=== PATIENT | male | born 1965 | race Caucasian/White ===

== ENCOUNTER 2016-05-28 20:26 | Inpatient (IN) | payer MEDICAID ==
--- NOTE | 2016-05-28 20:32 | Emergency Department Record ---
History of Present Illness - General Chief Complaint: Chest Pain Stated Complaint: CHEST PAIN Time Seen by Provider: 05/28/16 20:32 Source: Patient - History of Present Illness Initial Comments: The patient states that he has had 3 days of constant left sided chest pain which is at the center of his chest and goes around to the left back of his chest and also includes his left arm from the top of his shoulder down to this 4th and 5th fingertips. It worsens when he lays on his left side, and is improved partially with laying on his right side. It is described as a burning electric type pain and is associated with SOB and wheezing. He states he had a temp of 101 3 days ago, he has been having chills, and his cough is productive of thick yellow brown green sputum. He has a history of over 50 pack year smoking of 1.5 packs per day and quit 2 years ago. He denies history of pneumonia, PE, DVT, NM, CVA, DM, HTN, chol. elevation. He states both his grandparents and both his parents have had NM's. His dad dies of "sarcomatous cancer" at age 56. MD Complaint: Chest pain, Other (cough, fever, SOB) - Related Data Home Medications Medication Instructions Recorded Confirmed Last Taken No Home Med [NO HOME MEDS] 05/28/16 05/28/16 Unknown Allergies Allergy/AdvReac Type Severity Reaction Status Date / Time No Known Drug Allergies Allergy Verified 05/28/16 20:28 Review of Systems Reviewed: No additional complaints except as noted below Constitutional: Reports: As per HPI. Denies: Chills, Fever, Malaise, Night sweats, Weakness, Weight change Eyes: Reports: As per HPI. Denies: Eye discharge, Eye pain, Photophobia, Vision change ENT: Reports: As per HPI. Denies: Congestion, Dental pain, Ear pain, Epistaxis , Hearing loss, Throat pain Respiratory: Reports: As per HPI. Denies: Cough, Dyspnea, Hemoptysis, Stridor, Wheezes Cardiovascular: Reports: As per HPI. Denies: Arrhythmia, Chest pain, Dyspnea on exertion, Edema, Murmurs, Orthopnea, Palpitations, Paroxysmal nocturnal dyspnea, Rheumatic Fever, Syncope Endocrine: Reports: As per HPI. Denies: Fatigue, Heat or cold intolerance, Polydipsia, Polyuria Gastrointestinal: Reports: As per HPI. Denies: Abdominal pain, Constipation, Diarrhea, Hematemesis, Hematochezia, Melena, Nausea, Vomiting Genitourinary: Reports: As per HPI. Denies: Dysuria, Frequency, Hematuria, Incontinence, Retention, Testicular pain, Testicular mass, Urgency Musculoskeletal: Reports: As per HPI. Denies: Arthralgia, Back pain, Gout, Joint swelling, Myalgia, Neck pain Skin: Reports: As per HPI. Denies: Bruising, Change in color, Change in hair/ nails, Lesions, Pruritus, Rash Neurological: Reports: As per HPI. Denies: Abnormal gait, Confusion, Headache, Numbness, Paresthesias, Seizure, Tingling, Tremors, Vertigo, Weakness Psychiatric: Reports: As per HPI. Denies: Anxiety, Auditory hallucinations, Depression, Homicidal thoughts, Suicidal thoughts, Visual hallucinations Hematological/Lymphatic: Reports: As per HPI. Denies: Anemia, Blood Clots, Easy bleeding, Easy bruising, Swollen glands Past Medical History - SOCIAL HISTORY Smoking Status: Former smoker Physical Exam - General General Appearance: Alert, Oriented x3, Cooperative, Moderate distress, Other ( RA biox 90%) - Head Head exam: Normal inspection - Eye Eye exam: Normal appearance, PERRL Pupils: Normal accommodation - ENT ENT exam: Normal exam, Mucous membranes moist, Normal external ear exam, Normal orophraynx, TM's normal bilaterally Ear exam: Normal external inspection. negative: External canal tenderness Nasal Exam: Normal inspection. negative: Discharge, Sinus tenderness Mouth exam: Normal external inspection, Tongue normal Teeth exam: Normal inspection. negative: Dental caries Throat exam: Normal inspection. negative: Tonsillar erythema, Tonsillar exudate - Neck Neck exam: Normal inspection, Full ROM. negative: Tenderness - Respiratory Respiratory exam: Chest wall tenderness, Decreased breath sounds, Prolonged expiratory, Respiratory distress, Wheezes (throughout) - Cardiovascular Cardiovascular Exam: Normal rhythm, Normal heart sounds, Tachycardia - GI/Abdominal GI/Abdominal exam: Soft, Normal bowel sounds. negative: Tenderness - Rectal Rectal exam: Deferred - exam: Deferred - Extremities Extremities exam: Normal inspection, Full ROM, Normal capillary refill. negative: Calf tenderness, Pedal edema, Tenderness - Back Back exam: Reports: Normal inspection, Full ROM. Denies: CVA tenderness (R), CVA tenderness (L), Muscle spasm, Rash noted, Tenderness - Neurological Neurological exam: Alert, CN II-XII intact, Normal gait, Oriented X3, Reflexes normal - Psychiatric Psychiatric exam: Normal affect, Normal mood - Skin Skin exam: Dry, Intact, Normal color, Warm Course - Reevaluation(s) Reevaluation #1: Pain level is 8/10 and now just in the left posterior chest area around his left scapula. Inspiratory and expiratory wheezes throughout. 05/28/16 21:47 Reevaluation #2: Patient is much more comfortable and is coughing more now. Patient agrees to admission. 05/28/16 23:04 Medical Decision Making - Management Options MDM Management: Additional Work-up Planned (e.g. ADM/Transfer/OP Study) - Data Complexity MDM Data: Labs Ordered and/or Reviewed, X-Ray Ordered and/or Reviewed (CTA Chest : L posterior perihilar pnemonia; R perihilar pneumonia; COPD changes in lung apices. Per Rad.), EKG Ordered and/or Reviewed - Lab Data Result diagrams: 05/28/16 20:36 05/28/16 20:36 - EKG Data -: EKG Interpreted by Me (Sinus tachycardia at 125, left atrial enlargement, inf. Q's, no ST mimi.) EKG: No Acute Changes Disposition Disposition: Admit Clinical Impression: Obstructive Chronic Bronchitis With Exacerbation Pneumonia Qualifiers: Pneumonia type: due to unspecified organism Laterality: bilateral Lung location : unspecified part of lung Qualified Code(s): J18.9 - Pneumonia, unspecified organism Pneumonia Qualifiers: Pneumonia type: due to unspecified organism Laterality: bilateral Lung location : unspecified part of lung Qualified Code(s): J18.9 - Pneumonia, unspecified organism Chest pain Qualifiers: Chest pain type: other chest pain Qualified Code(s): R07.89 - Other chest pain ; R07.8 - Other chest pain Disposition: Still a Patient at [facility] Decision to Admit: Admit from ER Decision to Admit Date: 05/28/16 Decision to Admit Time: 23:12 Accepting Physician: Dr. Dewitt/Liliana Condition: (2) Stable Forms: Patient Portal Access
[2016-05-28] MEDS ORDERED: ASPIRIN 325 MG TABLET PO ONE (20:33)
[2016-05-28] MEDS ORDERED: IPRATROPIUM/ALBUTEROL (0.5MG/3MG) NEB INH ONE (20:44)
[2016-05-28 21:03] LABS: HEMATOCRIT 47.7 % (42.0-52.0); HEMOGLOBIN 15.9 gm/dl (14.0-18.0); MEAN CELL VOLUME 91.2 fl (81-97); MEAN CORPUSCULAR HEMOGLOBIN 30.4 pg (27-33); MEAN CORPUSCULAR HGB CONC 33.3 g/dl (32-36); MEAN PLATELET VOLUME 11.5 fl (7.4-10.4); PLATELET COUNT 264 K/uL (130-400); RED BLOOD COUNT 5.23 M/uL (4.40-5.70); RED CELL DISTRIBUTION WIDTH 13.2 % (11.5-14.5); WHITE BLOOD COUNT W/O DIFF 17.4 K/uL (4.2-12.2)
[2016-05-28] MEDS ORDERED: 0.9 % SODIUM CHLORIDE 1,000 ML BAG IV ONE (21:06)
[2016-05-28 21:09] LABS: ANION GAP 13.6 (7-16); BLOOD UREA NITROGEN 11 mg/dL (9-20); CARBON DIOXIDE 31.4 mmol/L (22-30); CREATINE PHOSPHOKINASE 299 U/L (55-170); CREATININE 0.8 mg/dL (0.66-1.25); EST GLOMERULAR FILTRATION RATE > 60 ml/min; GLUCOSE,RANDOM 84 mg/dL (70-110)
[2016-05-28 21:13] LABS: D-DIMER 0.6 mg/L FEU (0-0.59); INR 0.96; PARTIAL THROMBOPLASTIN TIME 32.6 SECONDS (24.5-39.1); PROTHROMBIN TIME (PATIENT) 10.8 SECONDS (9.5-12.1)
[2016-05-28 21:21] LABS: CKMB 5.2 ug/L (0-6)
[2016-05-28 21:22] LABS: TROPONIN I < 0.012 ng/mL (0.00-0.034)
[2016-05-28] MEDS ORDERED: ORPHENADRINE CITRATE 60MG/2ML VIAL IVP ONE (21:22)
[2016-05-28] MEDS ORDERED: METHYLPREDNISOLONE PF 125MG/VIAL IVP ONE (21:22)
[2016-05-28] MEDS ORDERED: ALBUTEROL SULFATE (0.083%) 2.5 MG/3 ML NEB INH ONE (23:03)
[2016-05-28] MEDS ORDERED: AZITHROMYCIN 500 MG TABLET PO ONE (23:03)
[2016-05-28] MEDS ORDERED: CEFTRIAXONE SODIUM 2 GM in 0.9 % SODIUM CHLORIDE 100ML 100 ML IVPB ONE (23:03)
[2016-05-28] MEDS ORDERED: ACETAMINOPHEN 500 MG TABLET PO PRN (23:34)
[2016-05-28] MEDS: CEFTRIAXONE SODIUM 2 GM in 0.9 % SODIUM CHLORIDE 100ML 100 ML IVPB SCH (23:37)
[2016-05-29] MEDS ORDERED: ALBUTEROL SULFATE (0.083%) 2.5 MG/3 ML NEB INH PRN (02:09)
[2016-05-29] MEDS: IPRATROPIUM/ALBUTEROL (0.5MG/3MG) NEB INH SCH ×5 (05:41→21:18)
[2016-05-29] MEDS ORDERED: ALBUTEROL SULFATE (0.083%) 2.5 MG/3 ML NEB INH SCH (06:00)
[2016-05-29 07:24] LABS: CKMB 4.1 ug/L (0-6)
[2016-05-29] MEDS ORDERED: METHYLPREDNISOLONE PF 125MG/VIAL IVP SCH (10:00)
[2016-05-29] MEDS ORDERED: AZITHROMYCIN 500 MG TABLET PO SCH (10:00)
--- NOTE | 2016-05-29 14:11 | History & Physical ---
History of Present Illness - Date of Service Date of Service for History & Physical: 05/29/16 - History of Present Illness Admitting Diagnosis: Bilateral pneumonia; COPD exacerbation; chest pain; leukocytosis History of Present Illness: 51 yo male admitted for pneumonia. PMHx of smoking x 35 years (smoked 1-1.5 ppd , quit 2 years ago), COPD, marijuana use, obesity. Patient began having CP, CARIN and nausea about 4-5 days ago. Aggravated by nothing. Alleviated by IV antibiotics, breathing treatment and steroid in the ER. Prior to coming in, patient trialled OTC nsaids & cough supressant. However , his symptoms worsened on Monday. Patient then had a friend drive him to our ER. While in the ER, Temp 98.3, HR 126, BP 146/108, RR 18, O2 93% on RA. WBC 17.5, hgb/ hct normal, plt 264, sodium 141, potassium 4.3, chloride 96, CO2 31.4, BUN 11, Cr. 0.8, glucose 84. d-dimer: 0.60, troponin negative x 2, creatinine kinase 299 (decreased to 228). CXR: mild COPD, intersitial changes, NAP. CTA: no PE/aneurysm, Left posterior saida hilar nodule, consistent with PNA, minor infectior right saida hilar opacity. F/up recommended by radiologist to confirm clearing of non calcified nodule in right lung. EKG: sinus tach, LAE, infect infarct (old). 125 mg of solu medrol administered. Duo neb treatments initiated. He was started on 500 mg of PO Azithromycin daily and 2 gm of IV Rocephin. He was then admitted for further medical management. This morning, patient is lying comfortably in bed. He feels much less sob. CP has resolved. He's coughing up green, yellow sputum. No fever, chills, n/v, diaphoresis, diarrhea, abd pain, headache, dysuria, change in bowel habits, or unintentional weight loss. Patient denies any sick contacts. He traveled to [place] about 8 months ago. No changes to medications. No previous hospitalizations. No primary care provider. Went to an urgent care 2 months ago for a cough, which improved with cough syrup. 50 pack year smoking history. Both his parents have had KS's. Denies any known h/o HBP, high cholesterol, DVT, CVA or KS. PCP: NONE Travel Screening - Travel/Exposure Within Last 30 Days Have you traveled within the last 30 days?: No Review of Systems Constitutional: Reports: As per HPI. Denies: Chills, Fever, Malaise, Night sweats, Weakness, Weight change Eyes: Reports: As per HPI. Denies: Eye discharge, Eye pain, Photophobia, Vision change ENT: Reports: As per HPI. Denies: Congestion, Dental pain, Ear pain, Epistaxis , Hearing loss, Throat pain Respiratory: Reports: As per HPI. Denies: Cough, Dyspnea, Hemoptysis, Stridor, Wheezes Cardiovascular: Reports: As per HPI. Denies: Arrhythmia, Chest pain, Dyspnea on exertion, Edema, Murmurs, Orthopnea, Palpitations, Paroxysmal nocturnal dyspnea, Rheumatic Fever, Syncope Endocrine: Reports: As per HPI. Denies: Fatigue, Heat or cold intolerance, Polydipsia, Polyuria Gastrointestinal: Reports: As per HPI. Denies: Abdominal pain, Constipation, Diarrhea, Hematemesis, Hematochezia, Melena, Nausea, Vomiting Genitourinary: Reports: As per HPI. Denies: Dysuria, Frequency, Hematuria, Incontinence, Retention, Testicular pain, Testicular mass, Urgency Musculoskeletal: Reports: As per HPI. Denies: Arthralgia, Back pain, Gout, Joint swelling, Myalgia, Neck pain Skin: Reports: As per HPI. Denies: Bruising, Change in color, Change in hair/ nails, Lesions, Pruritus, Rash Neurological: Reports: As per HPI. Denies: Abnormal gait, Confusion, Headache, Numbness, Paresthesias, Seizure, Tingling, Tremors, Vertigo, Weakness Psychiatric: Reports: As per HPI. Denies: Anxiety, Auditory hallucinations, Depression, Homicidal thoughts, Suicidal thoughts, Visual hallucinations Hematological/Lymphatic: Reports: As per HPI. Denies: Anemia, Blood Clots, Easy bleeding, Easy bruising, Swollen glands Past Medical History - SOCIAL HISTORY Smoking Status: Former smoker Alcohol Use: Rare Drug Use Detail:: Marijuana - RESPIRATORY Hx Respiratory Disorders: No - CARDIOVASCULAR Hx Cardio Disorders: No - NEURO Hx Neuro Disorders: No - GI Hx GI Disorders: No - Hx Genitourinary Disorders: No - ENDOCRINE Hx Endocrine Disorders: No - MUSCULOSKELETAL Hx Musculoskeletal Disorders: No - PSYCH Hx Psych Problems: No - HEMATOLOGY/ONCOLOGY Hx Hematology/Oncology Disorders: No Family Medical History Any Significant Family History?: Yes Hx Cancer: Father Hx Diabetes: Mother Hx Heart Disease: Mother H&P Meds/Allergies - Allergies Allergies: Allergies Allergy/AdvReac Type Severity Reaction Status Date / Time No Known Drug Allergies Allergy Verified 05/28/16 20:28 - Home Medications Home Medications Medication Instructions Recorded Confirmed Last Taken No Home Med [NO HOME MEDS] 05/28/16 05/28/16 Unknown - Active Medications Active Medications: Current Medications Acetaminophen (Tylenol 500mg Tab) 1,000 mg PO Q6H PRN PRN Reason: PAIN/TEMP Albuterol Sulfate () 2.5 mg INH RESP.Q4H.WA PRN PRN Reason: DIFFICULTY IN BREATHING Albuterol/Ipratropium (Duoneb) 3 ml INH RESP.Q4H.WA PATO Last Admin: 05/29/16 10:25 Dose: 3 ml Azithromycin (Zithromax) 500 mg PO DAILY COUNTS INCLUDE 234 BEDS AT THE [facility] Last Admin: 05/29/16 11:05 Dose: 500 mg Ceftriaxone Sodium 2 gm/ (Sodium Chloride) 100 mls @ 200 mls/hr IVPB Q24H COUNTS INCLUDE 234 BEDS AT THE [facility] Stop: 06/02/16 23:35 Last Admin: 05/28/16 23:37 Dose: Not Given Methylprednisolone Sodium Succinate (Solu-Medrol) 125 mg IVP DAILY COUNTS INCLUDE 234 BEDS AT THE [facility] Last Admin: 05/29/16 11:04 Dose: 125 mg Physical Exam - Vital Signs Vital Signs: Vital Signs - Last 24 Hrs Temp Pulse Pulse Resp BP Pulse Ox 05/29/16 10:25 100 H 18 94 L 05/29/16 07:34 98.5 F 109 H 18 165/94 93 L 05/29/16 05:43 91 L 05/29/16 00:06 104 H 22 05/28/16 23:34 98.1 F 103 H 20 139/88 93 L - General General Appearance: Alert, Oriented x3, Cooperative, No acute distress - Head Head exam: Normal inspection - Eye Eye exam: Normal appearance, PERRL Pupils: Normal accommodation - ENT ENT exam: Normal exam, Mucous membranes moist, Normal external ear exam, Normal orophraynx, TM's normal bilaterally Ear exam: Normal external inspection. negative: External canal tenderness Nasal Exam: Normal inspection. negative: Discharge, Sinus tenderness Mouth exam: Normal external inspection, Tongue normal Teeth exam: Normal inspection. negative: Dental caries Throat exam: Normal inspection. negative: Tonsillar erythema, Tonsillar exudate - Neck Neck exam: Normal inspection, Full ROM. negative: Tenderness - Respiratory Respiratory exam: Decreased breath sounds, Prolonged expiratory, Wheezes ( throughout). negative: Accessory muscle use, Chest wall tenderness - Cardiovascular Cardiovascular Exam: Normal rhythm, Normal heart sounds, Tachycardia - GI/Abdominal GI/Abdominal exam: Soft, Normal bowel sounds. negative: Tenderness - Rectal Rectal exam: Deferred - exam: Deferred - Extremities Extremities exam: Normal inspection, Full ROM, Normal capillary refill. negative: Calf tenderness, Pedal edema, Tenderness - Back Back exam: Reports: Normal inspection, Full ROM. Denies: CVA tenderness (R), CVA tenderness (L), Muscle spasm, Rash noted, Tenderness - Neurological Neurological exam: Alert, CN II-XII intact, Normal gait, Oriented X3, Reflexes normal - Psychiatric Psychiatric exam: Normal affect, Normal mood - Skin Skin exam: Dry, Intact, Normal color, Warm Results - Labs Result Diagrams: 05/28/16 20:36 05/28/16 20:36 Labs Last 24 Hours: Laboratory Results - last 24 hr 05/29/16 05/29/16 06:00 08:00 Creatine Kinase 228 H CK-MB (CK-2) 4.1 Troponin I < 0.012 VTE H&P Assessment - Risk for VTE Risk for VTE: Yes Risk Level: Moderate Risk Assessment Date: 05/29/16 Risk Assessment Time: 11:00 VTE Orders Placed or Will Be Placed: Yes Plan - Inpatient Certification Inpatient Certification: Admit to inpatient care: Based on my medical assessment, after consideration of patient's risk factors (age, co-morbidities and patient presenting symptoms and acuity), I expect that this patient will remain in the hospital greater than or equal to two midnights and that the services needed warrant inpatient care because: Patient Risk Factors: [] Estimated length of stay: [] The patient may reasonably be expected to be discharged or transferred to a hospital within 96 hours after admission to [facility]. Services needed: [] Post hospital care (if known): [] I certify that my determination is in accordance with my understanding of Medicare requirements for reasonable and necessary inpatient services. - Detailed Diagnosis and Plan (1) Chest pain Current Visit: Yes Status: Acute Qualifiers: Chest pain type: other chest pain Qualified Code(s): R07.89 - Other chest pain; R07.8 - Other chest pain Base Code: R07.9 - CHEST PAIN, UNSPECIFIED Comment: 05/29/16: cardiac vs. respiratory vs. other? Patient states CP has resolved. EKG: sinus tach, LAE, infectior old infarct. CTA of chest: consistent with PNA. Troponin negative x 2. Creatinine kinase 299 initially now 228. Await final troponin and repeat EKG findings. Monitor VS's Q8 hours. Monitor for chest pain. Continue telemetry. Patient will need to be set up with PCP prior to discharge. (2) Pneumonia Current Visit: Yes Status: Acute Qualifiers: Pneumonia type: due to unspecified organism Laterality: bilateral Lung location: unspecified part of lung Qualified Code(s): J18.9 - Pneumonia , unspecified organism Base Code: J18.9 - PNEUMONIA, UNSPECIFIED ORGANISM Comment: 05/29/16: CTA of chest demonstrates findings consistent with pneumonia. Will continue PO Azithromycin 500 mg daily and 2 gm of Rocephin q 24 hours. Will change solu medrol to 60 mg daily. Continue breathing treatments Q4 hours. Sputum culture obtained. Monitor VS Q8 hours. No blood cultures obtained prior to antibiotic initiation. Recheck wbc in the am. Repeat chest imaging within the next 7 days to verify resolution of pneumonia and non calcified nodule in right lung. (3) DVT prophylaxis Current Visit: Yes Status: Acute Base Code: [id number] - Comment: 05/29/16: decreased mobility and respiratory distress. Lovenox 40 mg sq daily for dvt prophylaxis. (4) Full code status Current Visit: Yes Status: Acute Base Code: Z78.9 - OTHER SPECIFIED HEALTH STATUS Comment: 05/29/16: patient is full code.
[2016-05-29] MEDS: CEFTRIAXONE SODIUM 2 GM in 0.9 % SODIUM CHLORIDE 100ML 100 ML IVPB SCH (23:08)
[2016-05-29] MEDS: IBUPROFEN 400 MG TABLET PO PRN (23:47)
[2016-05-30] MEDS: IPRATROPIUM/ALBUTEROL (0.5MG/3MG) NEB INH SCH ×5 (05:41→22:19)
[2016-05-30 06:22] LABS: BASO % 0.1 % (0-6); HEMATOCRIT 46.3 % (42.0-52.0); HEMOGLOBIN 15.3 gm/dl (14.0-18.0); LYMPH % 5.9 % (16-45); MEAN CELL VOLUME 91.7 fl (81-97); MEAN CORPUSCULAR HEMOGLOBIN 30.3 pg (27-33); MEAN PLATELET VOLUME 11.5 fl (7.4-10.4); PLATELET COUNT 259 K/uL (130-400); RED BLOOD COUNT 5.05 M/uL (4.40-5.70); RED CELL DISTRIBUTION WIDTH 13.5 % (11.5-14.5)
[2016-05-30 06:29] LABS: WHITE BLOOD COUNT W/O DIFF 30.4 K/uL (4.2-12.2)
[2016-05-30 06:32] LABS: PLATELET ESTIMATE NORMAL (NORMAL)
[2016-05-30 06:36] LABS: ALB/GLOB RATIO 1.4 (1.1-1.8); ALBUMIN 4.3 gm/dL (3.5-5.0); ALKALINE PHOSPHATASE 108 U/L (38-126); ALT/SGPT 38 U/L (21-72); ANION GAP 16.3 (7-16); AST/SGOT 25 U/L (17-59); BILIRUBIN,TOTAL 0.21 mg/dL (0.2-1.3); BLOOD UREA NITROGEN 21 mg/dL (9-20); CARBON DIOXIDE 24.7 mmol/L (22-30); CREATININE 0.9 mg/dL (0.66-1.25); EST GLOMERULAR FILTRATION RATE > 60 ml/min; GLUCOSE,RANDOM 117 mg/dL (70-110); TOTAL PROTEIN 7.4 gm/dL (6.3-8.2)
[2016-05-30 06:44] LABS: CKMB 3.6 ug/L (0-6)
[2016-05-30] MEDS: HYDROCODONE/APAP 5/325MG TABLET PO PRN ×3 (06:51→18:43)
--- NOTE | 2016-05-30 07:29 | RADIOLOGY REPORT ---
EXAM: CHEST, TWO VIEWS HISTORY: CHEST PAIN FOR THE PAST THREE DAYS. PRODUCTIVE COUGH AND FEVER. LEFT SIDED CHEST PAIN. TECHNIQUE: PA and lateral upright views of the chest were obtained. Comparison: None. FINDINGS: The heart, mediastinum, and pulmonary vasculature are normal. The lungs appear mildly hyperinflated. Mild chronic appearing interstitial changes are present bilaterally. There are no visible acute infiltrate or effusions. There is no pneumothorax. The bones appear intact. IMPRESSION: 1. MILD COPD AND CHRONIC APPEARING INTERSTITIAL CHANGES. 2. NO ACUTE CHEST PATHOLOGY. JOB NUMBER: [id number] MTDD
--- NOTE | 2016-05-30 07:38 | CT ANGIOGRAM REPORT ---
EXAM: CTA OF THE CHEST WITH CONTRAST HISTORY: CHEST PAIN AND SHORTNESS OF BREATH WITH ELEVATED D-DIMER. SYMPTOMS FOR THE PAST THREE DAYS. TECHNIQUE: Standard CT angiography of the chest was performed with post processing following the bolus administration of 100 ml of Omnipaque 350. Additional coronal and sagittal maximum intensity projection reformatted images were performed on an independent workstation under concurrent supervision. Comparison: Chest radiograph from the same date. FINDINGS: The pulmonary arterial tree is normal. There is no pulmonary embolus. The aorta is normal in caliber with no dissection. The heart is normal in size. There is focal air space opacity within the medial aspect of the left lower lobe behind the left hilum. Mild right perihilar infiltrates are also present. The left posterior perihilar infiltrate has a slightly nodular component likely representing areas of consolidation/infection. Short term follow-up is recommended to confirm clearing. There are borderline enlarged mediastinal and left hilar lymph nodes. No pathologic lymphadenopathy is identified. There is a 4 mm noncalcified nodule within the right upper lobe on image number 43. A 5 mm noncalcified nodule is present within the right lower lobe on image number 92. These also can be reassessed on follow-up to confirm stability or resolution. The chest wall and axillary regions appear normal. Degenerative changes are present within the spine. The visualized portions of the upper abdomen appear normal. IMPRESSION: 1. THERE IS NO EVIDENCE FOR PULMONARY EMBOLUS OR AORTIC DISSECTION. 2. THERE IS A FOCAL AREA OF INFILTRATE/CONSOLIDATION WITHIN THE POSTERIOR LEFT PERIHILAR REGION CONSISTENT WITH PNEUMONIA. THIS HAS A SLIGHTLY NODULAR CONFIGURATION. A SHORT TERM FOLLOW-UP CT SCAN IS RECOMMENDED IN ONE TO TWO MONTHS TO CONFIRM COMPLETE RESOLUTION. 3. MINOR RIGHT PERIHILAR INFILTRATES ARE ALSO PRESENT. 4. NONCALCIFIED NODULES WITHIN THE RIGHT LUNG. THESE ALSO CAN BE REASSESSED ON FOLLOW-UP TO CONFORM STABILITY. 5. NOT MENTIONED ABOVE, MILD EMPHYSEMATOUS CHANGES ARE PRESENT AT THE LUNG APICES. JOB NUMBER: [id number] MTDD
[2016-05-30] MEDS: METHYLPREDNISOLONE PF 125MG/VIAL IVP SCH (09:56)
[2016-05-30] MEDS: ENOXAPARIN 40 MG/0.4 ML SYR SQ SCH (09:58)
[2016-05-30] MEDS ORDERED: LEVOFLOXACIN 500MG IVPB 500 MG in DEXTROSE 1 BAG IVPB SCH (10:00)
--- NOTE | 2016-05-30 10:58 | Physician Progress Note ---
Addendum entered and electronically signed by Liliana Castro P.A. 13:23: Neuro exam unremarkable. Head/ neck CT negative. Patient much more comfortable , sitting up in bed. Less sob. dental pain present though controlled. Vanco and Cefepime initiated. Addendum entered and electronically signed by Liliana Castro P.A. 11:16: Re- evaluated patient today around 11 am. Patient now c/o headache and vision blurring. he has a warm, red inflamed area on the back of his neck. ROM of neck is normal. no skin changes. no opened wounds on skin. C/o right knee erythema and inflammation two days ago, now states this has resolved. Will obtain head/cervical spine CT and discuss initiating strong antibiotic coverage. Original Note: Subjective - Date Date of Physician Progress Note: 05/30/16 - Subjective Subjective Comment: patient sitting up in bed comfortably. c/o front, lower dental pain. States he was yawning and cracked a tooth. Patient has a loose front lower tooth as well. poor dentition. denies dental visits q 6 months. Continue to have a green/yellow productive cough. Intermittent chest pain associated with cough. Afebrile. fatigue related to cough. No skin changes, headache, abd pain, change in bowel/bladder function. no additional concerns by patient. Objective - Vital Signs Vital Signs: Vital Signs - Last 24 Hrs Temp Pulse Pulse Resp BP Pulse Ox 05/30/16 10:23 118 H 20 95 05/30/16 10:10 100 H 18 05/30/16 07:00 97.8 F 105 H 20 159/108 94 L 05/30/16 05:42 110 H 22 93 L 05/29/16 21:58 98.6 F 123 H 22 133/85 94 L 05/29/16 21:18 120 H 22 94 L 05/29/16 21:00 123 H 22 05/29/16 15:00 99.0 F 118 H 22 152/87 91 L 05/29/16 14:42 104 H 18 92 L - General General Appearance: Alert, Oriented x3, Cooperative, Mild distress (due to dental pain) - Head Head exam: Normal inspection - Eye Eye exam: Normal appearance, PERRL Pupils: Normal accommodation - ENT ENT exam: Normal exam, Mucous membranes moist, Normal external ear exam, Normal orophraynx, TM's normal bilaterally Ear exam: Normal external inspection. negative: External canal tenderness Nasal Exam: Normal inspection. negative: Discharge, Sinus tenderness Mouth exam: Normal external inspection, Tongue normal Teeth exam: Dental caries, Dental tenderness # (front lower tooth, loose as well ), Fractured tooth # (multiple). negative: Gingival enlargement Throat exam: Normal inspection. negative: Tonsillar erythema, Tonsillar exudate - Neck Neck exam: Normal inspection, Full ROM. negative: Tenderness - Respiratory Respiratory exam: Decreased breath sounds, Prolonged expiratory, Wheezes ( throughout). negative: Accessory muscle use, Chest wall tenderness - Cardiovascular Cardiovascular Exam: Normal rhythm, Normal heart sounds, Tachycardia - GI/Abdominal GI/Abdominal exam: Soft, Normal bowel sounds. negative: Tenderness - Rectal Rectal exam: Deferred - exam: Deferred - Extremities Extremities exam: Normal inspection, Full ROM, Normal capillary refill. negative: Calf tenderness, Pedal edema, Tenderness - Back Back exam: Reports: Normal inspection, Full ROM. Denies: CVA tenderness (R), CVA tenderness (L), Muscle spasm, Rash noted, Tenderness - Neurological Neurological exam: Alert, CN II-XII intact, Normal gait, Oriented X3, Reflexes normal - Psychiatric Psychiatric exam: Normal affect, Normal mood - Skin Skin exam: Dry, Intact, Normal color, Warm Assessment and Plan - Assessment and Plan (1) Chest pain Current Visit: Yes Status: Acute Qualifiers: Chest pain type: other chest pain Qualified Code(s): R07.89 - Other chest pain; R07.8 - Other chest pain Base Code: R07.9 - CHEST PAIN, UNSPECIFIED Comment: 05/30/16: - I supsect related to PNA/cough. CTA of chest: consistent with PNA. - CE negative x 3. Creatinine kinase has normalized. - EKG: no acute changes x 2. - Monitor VS's Q8 hours. - Continue telemetry- sinuse tachycardia this morning. - IV antibiotics and steroid ordered. - continue supplemental oxygen as needed - Patient will need to be set up with PCP prior to discharge. (2) Pneumonia Current Visit: Yes Status: Acute Qualifiers: Pneumonia type: due to unspecified organism Laterality: bilateral Lung location: unspecified part of lung Qualified Code(s): J18.9 - Pneumonia , unspecified organism Base Code: J18.9 - PNEUMONIA, UNSPECIFIED ORGANISM Comment: 05/30/16: - CTA of chest demonstrates findings consistent with pneumonia. - WBC increased to > 30 today. Will d/c PO Azithromycin 500 mg. Will add IV Levaquin 500 mg q 24 horus. Continue 2 gm of Rocephin q 24 hours. - Will change solu medrol to 60 mg daily. -Continue breathing treatments Q4 hours. - Sputum culture obtained & pending. - Monitor VS Q8 hours. - No blood cultures obtained prior to antibiotic initiation. - Continue to monitor WBC daily. Will need to consider different antibiotic therapy if WBC remains elevated. - Repeat chest imaging within the next 7 days to verify resolution of pneumonia and non calcified nodule in right lung. (3) Pain, dental Current Visit: Yes Status: Acute Base Code: K08.89 - OTHER SPECIFIED DISORDERS OF TEETH AND SUPPORTING STRUCTURES Comment: 05/30/16: no abscess appreciated on exam. front tooth loose. patient will need to follow up with dentist following d/c. Will monitor closely for any worsening symptoms. (4) Full code status Current Visit: Yes Status: Acute Base Code: Z78.9 - OTHER SPECIFIED HEALTH STATUS Comment: 05/30/16: patient is full code. (5) DVT prophylaxis Current Visit: Yes Status: Acute Base Code: [id number] - Comment: 05/30/16: decreased mobility and respiratory distress. Lovenox 40 mg sq daily for dvt prophylaxis. Results - Labs Result Diagrams: 05/30/16 06:10 05/30/16 06:10 Labs Last 24 Hours: Laboratory Results - last 24 hr 05/29/16 05/30/16 05/30/16 15:34 06:10 06:10 WBC 30.4 H* RBC 5.05 Hgb 15.3 Hct 46.3 MCV 91.7 MCH 30.3 MCHC 33.0 RDW 13.5 Plt Count 259 MPV 11.5 H Neutrophils % 88.0 H Lymphocytes % 6.0 L Monocytes % 6.0 Eosinophils % 0.0 Basophils % 0.1 Platelet Estimate Normal RBC Morphology Normal Sodium Potassium Chloride Carbon Dioxide Anion Gap BUN Creatinine Estimated GFR Random Glucose Calcium Total Bilirubin AST ALT Alkaline Phosphatase Creatine Kinase 140 CK-MB (CK-2) 3.6 Troponin I < 0.012 Total Protein Albumin Globulin Albumin/Globulin Ratio 01/30/17 06:10 WBC RBC Hgb Hct MCV MCH MCHC RDW Plt Count MPV Neutrophils % Lymphocytes % Monocytes % Eosinophils % Basophils % Platelet Estimate RBC Morphology Sodium 141 Potassium 4.5 Chloride 100 Carbon Dioxide 24.7 Anion Gap 16.3 H BUN 21 H Creatinine 0.9 Estimated GFR > 60 Random Glucose 117 H Calcium 9.3 Total Bilirubin 0.21 AST 25 ALT 38 Alkaline Phosphatase 108 Creatine Kinase CK-MB (CK-2) Troponin I Total Protein 7.4 Albumin 4.3 Globulin 3.1 Albumin/Globulin Ratio 1.4 DVT/PE Assessment - Risk for VTE Risk for VTE: No Risk Level: Moderate Risk Assessment Date: 05/29/16 Risk Assessment Time: 11:00 VTE Orders Placed or Will Be Placed: Yes - Active Medicaitons Current Medications: Current Medications Acetaminophen (Tylenol 500mg Tab) 1,000 mg PO Q6H PRN PRN Reason: PAIN/TEMP Last Admin: 05/30/16 03:31 Dose: 1,000 mg Acetaminophen/Hydrocodone Bitart ([place] 5mg/325mg) 1 each PO Q6H PRN PRN Reason: Pain - General Last Admin: 05/30/16 08:28 Dose: 1 each Acetaminophen/Hydrocodone Bitart ([place] 5mg/325mg) 2 each PO Q6H PRN PRN Reason: Pain - General Albuterol Sulfate () 2.5 mg INH RESP.Q4H.NE PRN PRN Reason: DIFFICULTY IN BREATHING Albuterol/Ipratropium (Duoneb) 3 ml INH RESP.Q4H.[facility] Last Admin: 05/30/16 10:07 Dose: 3 ml Enoxaparin Sodium (Lovenox) 40 mg SQ DAILY [facility] Last Admin: 05/30/16 09:58 Dose: 40 mg Ceftriaxone Sodium 2 gm/ (Sodium Chloride) 100 mls @ 200 mls/hr IVPB Q24H [facility] Stop: 06/02/16 23:35 Last Admin: 05/29/16 23:08 Dose: 200 mls/hr Levofloxacin/Dextrose 500 mg/ (Glucose) 100 mls @ 125 mls/hr IVPB Q24H [facility] Stop: 06/04/16 10:01 Last Admin: 05/30/16 09:54 Dose: 125 mls/hr Ibuprofen (Motrin 400mg) 800 mg PO Q8H PRN PRN Reason: Pain - General Last Admin: 05/29/16 23:47 Dose: 800 mg Methylprednisolone Sodium Succinate (Solu-Medrol) 60 mg IVP DAILY [facility] Last Admin: 05/30/16 09:56 Dose: 60 mg AMI Plan - Labs Result Diagrams: 05/30/16 06:10 05/30/16 06:10
[2016-05-30] MEDS: CEFEPIME HCL 2 GM in 0.9 % SODIUM CHLORIDE 100ML 100 ML IVPB SCH ×2 (11:40→19:59)
[2016-05-30] MEDS: VANCOMYCIN HCL 1,000 MG in 0.9 % SODIUM CHLORIDE 250ML 250 ML IVPB SCH ×2 (13:38→20:59)
[2016-05-30] MEDS ORDERED: HYDROCHLOROTHIAZIDE 12.5 MG CAPSULE PO SCH (22:30)
[2016-05-31] MEDS: CEFEPIME HCL 2 GM in 0.9 % SODIUM CHLORIDE 100ML 100 ML IVPB SCH ×3 (03:45→19:39)
[2016-05-31] MEDS: VANCOMYCIN HCL 1,000 MG in 0.9 % SODIUM CHLORIDE 250ML 250 ML IVPB SCH ×2 (04:39→13:03)
[2016-05-31] MEDS: IPRATROPIUM/ALBUTEROL (0.5MG/3MG) NEB INH SCH ×5 (06:41→21:31)
--- NOTE | 2016-05-31 07:47 | CT SCAN REPORT ---
EXAM: CT SCAN OF THE HEAD HISTORY: PATIENT HAS HEADACHE AND BLURRED VISION. TECHNIQUE: Serial axial CT scan of the head was performed at 2.5 mm intervals from the base of the skull to the apex without the use of intravenous contrast. No comparison CT's are available. FINDINGS: The ventricles, cisterns, and sulci appear within normal limits for size, shape, and attenuation. There is no mass or mass effect. The sales white differentiation appear within normal limits. There is no CT evidence of intra or extraaxial fluid collection to suggest bleeding. Bone windows demonstrate no CT evidence of a fracture or dislocation of the skull. The paranasal sinuses are unremarkable. IMPRESSION: NO CT EVIDENCE OF AN ACUTE INTRACRANIAL PROCESS. JOB NUMBER: [id number] MTDD
[2016-05-31] MEDS: HYDROCODONE/APAP 5/325MG TABLET PO PRN (07:50)
--- NOTE | 2016-05-31 08:00 | CT SCAN REPORT ---
EXAM: CT SCAN OF THE NECK WITH CONTRAST HISTORY: PATIENT HAS SWELLING OF THE BACK OF THE LEFT SIDE OF THE NECK. TECHNIQUE: Serial axial CT scan of the neck was performed at 2.5 mm intervals from the base of the skull to the thoracic inlet following the intravenous administration of 100 ml of Omnipaque 300. FINDINGS: The vertebral body height, contour, and AP alignment of the cervical spine is within normal limits. Mild reversal of the normal lordosis may be reflective due to pain. The atlantodental interval is within normal limits. There is no CT evidence of a fracture or dislocation of the cervical spine. 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 The prevertebral soft tissue and parapharyngeal fat are unremarkable. The bilateral submandibular glands, parotid glands, and thyroid gland are unremarkable. There is no CT evidence of cervical lymphadenopathy. Occasional 8 mm lymph nodes are identified within the right paratracheal space at the level of the thoracic inlet as well as within the right mid neck. These findings are likely reactive. In the region of palpable concern within the left mid neck, there are no suspicious underlying solid or cystic masses. The airways are patent. The lung windows of the lung apices are unremarkable. The neck vessels are unremarkable. IMPRESSION: NO CT EVIDENCE OF ACUTE PROCESS INVOLVING THE NECK. OCCASIONAL NONSPECIFIC SUBCENTIMETER LYMPH NODES ARE IDENTIFIED DISCUSSED ABOVE. NO SIGNIFICANT CERVICAL LYMPHADENOPATHY IS APPARENT. NO SUSPICIOUS UNDERLYING SOLID OR CYSTIC MASSES ARE IDENTIFIED WITHIN THE LEFT POSTERIOR NECK. JOB NUMBER: [id number] MTDD
[2016-05-31] MEDS: ENOXAPARIN 40 MG/0.4 ML SYR SQ SCH (10:05)
[2016-05-31] MEDS: METHYLPREDNISOLONE PF 125MG/VIAL IVP SCH (10:06)
--- NOTE | 2016-05-31 10:56 | Physician Progress Note ---
Subjective - Date Date of Physician Progress Note: 05/31/16 - Subjective Subjective Comment: 05/31/16- Patient reports feeling much better today. He says the pain in the left side of his chest has completely resolved. He denies any pain with deep inhalation or cough. He denies feeling short of breath. He is continuing to have a productive cough and says the green/yellow sputum is coming up easier now. He is not feeling fatigued, having fevers or chills and wants to go home. Objective - Vital Signs Vital Signs: Vital Signs - Last 24 Hrs Temp Pulse Pulse Resp BP Pulse Ox 05/31/16 07:00 98.5 F 93 H 20 155/110 91 L 05/31/16 06:52 100 H 18 94 L 05/30/16 22:10 106 H 168/114 05/30/16 21:10 118 H 162/121 05/30/16 21:00 98.0 F 106 H 22 154/108 94 L 05/30/16 15:00 97.9 F 105 H 22 154/110 91 L 05/30/16 14:19 104 H 16 - General General Appearance: Alert, Oriented x3, Cooperative, No acute distress - Head Head exam: Normal inspection - Eye Eye exam: Normal appearance, PERRL Pupils: Normal accommodation - ENT ENT exam: Normal exam, Mucous membranes moist, Normal external ear exam, Normal orophraynx, TM's normal bilaterally Ear exam: Normal external inspection. negative: External canal tenderness Nasal Exam: Normal inspection. negative: Discharge, Sinus tenderness Mouth exam: Normal external inspection, Tongue normal Teeth exam: Dental caries, Dental tenderness # (front lower tooth, loose as well ), Fractured tooth # (multiple). negative: Gingival enlargement Throat exam: Normal inspection. negative: Tonsillar erythema, Tonsillar exudate - Neck Neck exam: Normal inspection, Full ROM. negative: Tenderness - Respiratory Respiratory exam: Prolonged expiratory, Rhonchi (mid left and right lung ley) . negative: Accessory muscle use, Chest wall tenderness - Cardiovascular Cardiovascular Exam: Normal rhythm, Normal heart sounds, Tachycardia - GI/Abdominal GI/Abdominal exam: Soft, Normal bowel sounds. negative: Tenderness - Rectal Rectal exam: Deferred - exam: Deferred - Extremities Extremities exam: Normal inspection, Full ROM, Normal capillary refill. negative: Calf tenderness, Pedal edema, Tenderness - Back Back exam: Reports: Normal inspection, Full ROM. Denies: CVA tenderness (R), CVA tenderness (L), Muscle spasm, Rash noted, Tenderness - Neurological Neurological exam: Alert, CN II-XII intact, Normal gait, Oriented X3, Reflexes normal - Psychiatric Psychiatric exam: Normal affect, Normal mood - Skin Skin exam: Dry, Intact, Normal color, Warm Assessment and Plan - Inpatient Certification Inpatient Certification: risk factors: age, bilateral pneumonia, duration: 72-96H services needed: IV antibiotics, respiratory therapy 05/31/16 10:53 - Assessment and Plan (1) Pneumonia Current Visit: Yes Status: Acute Qualifiers: Pneumonia type: due to unspecified organism Laterality: bilateral Lung location: unspecified part of lung Qualified Code(s): J18.9 - Pneumonia, unspecified organism Base Code: J18.9 - PNEUMONIA, UNSPECIFIED ORGANISM Comment: 05/31/16: CTA of chest demonstrates findings consistent with bilateral perihilar pneumonia. sputum gram stain showed gram positive cocci and bacillus. Legionella antigen pending per [facility] recommendations. WBC down to 17.5 after initiating vancomycin 250mg q8H and cefepime 2gm Q8H - Will continue solu medrol 60 mg daily and antibiotics. pharmacy to dose vanc -Continue breathing treatments Q4 hours. - Monitor VS Q8 hours. - No blood cultures obtained prior to antibiotic initiation while in the ED - Repeat chest imaging within the next 7 days to verify resolution of pneumonia and non calcified nodule in right lung. (2) Chest pain Current Visit: Yes Status: Acute Qualifiers: Chest pain type: other chest pain Qualified Code(s): R07.89 - Other chest pain; R07.8 - Other chest pain Base Code: R07.9 - CHEST PAIN, UNSPECIFIED Comment: 05/31/16: Resolved. Most likely cause was PNA. CTA of chest consistent with b/l perihilar PNA. CE negative x 3. Creatinine kinase has normalized. EKG : no acute changes x 2. - Monitor VS's Q8 hours. - Discontinue telemetry - Patient will need to be set up with PCP prior to discharge. (3) DVT prophylaxis Current Visit: Yes Status: Acute Base Code: [id number] - Comment: 05/31/16: decreased mobility. - Lovenox 40 mg sq daily for dvt prophylaxis. (4) Full code status Current Visit: Yes Status: Acute Base Code: Z78.9 - OTHER SPECIFIED HEALTH STATUS Comment: 05/31/16: patient is full code. (5) Pain, dental Current Visit: Yes Status: Acute Base Code: K08.89 - OTHER SPECIFIED DISORDERS OF TEETH AND SUPPORTING STRUCTURES Comment: 05/31/16: no abscess appreciated on exam. front tooth loose. patient has dentist appointment scheduled for next week. -Will monitor closely for any worsening symptoms. Results - Labs Result Diagrams: 06/01/16 06:05 06/01/16 06:05 DVT/PE Assessment - Risk for VTE Risk for VTE: No Risk Level: Moderate Risk Assessment Date: 05/29/16 Risk Assessment Time: 11:00 VTE Orders Placed or Will Be Placed: Yes - Active Medicaitons Current Medications: Current Medications Acetaminophen (Tylenol 500mg Tab) 1,000 mg PO Q6H PRN PRN Reason: PAIN/TEMP Last Admin: 05/30/16 03:31 Dose: 1,000 mg Acetaminophen/Hydrocodone Bitart ([place] 5mg/325mg) 1 each PO Q6H PRN PRN Reason: Pain - General Last Admin: 05/30/16 18:43 Dose: 1 each Acetaminophen/Hydrocodone Bitart ([place] 5mg/325mg) 2 each PO Q6H PRN PRN Reason: Pain - General Last Admin: 05/31/16 07:50 Dose: 2 each Albuterol Sulfate () 2.5 mg INH RESP.Q4H.[place] PRN PRN Reason: DIFFICULTY IN BREATHING Albuterol/Ipratropium (Duoneb) 3 ml INH RESP.Q4H.[facility] Last Admin: 05/31/16 06:41 Dose: 3 ml Enoxaparin Sodium (Lovenox) 40 mg SQ DAILY [facility] Last Admin: 05/31/16 10:05 Dose: 40 mg CEFEPIME HCL 2 gm/ Sodium (Chloride) 100 mls @ 200 mls/hr IVPB Q8H [facility] Last Admin: 05/31/16 03:45 Dose: 200 mls/hr Vancomycin HCl 1,000 mg/ (Sodium Chloride) 250 mls @ 250 mls/hr IVPB Q8H [facility] Stop: 06/04/16 12:16 Last Admin: 05/31/16 04:39 Dose: 250 mls/hr Ibuprofen (Motrin 400mg) 800 mg PO Q8H PRN PRN Reason: Pain - General Last Admin: 05/29/16 23:47 Dose: 800 mg Methylprednisolone Sodium Succinate (Solu-Medrol) 60 mg IVP DAILY [facility] Last Admin: 05/31/16 10:06 Dose: 60 mg AMI Plan - Labs Result Diagrams: 06/01/16 06:05 06/01/16 06:05
[2016-05-31 13:03] LABS: HEMATOCRIT 46.2 % (42.0-52.0); HEMOGLOBIN 15.1 gm/dl (14.0-18.0); MEAN CELL VOLUME 92.4 fl (81-97); MEAN CORPUSCULAR HEMOGLOBIN 30.2 pg (27-33); MEAN CORPUSCULAR HGB CONC 32.7 g/dl (32-36); MEAN PLATELET VOLUME 11.2 fl (7.4-10.4); PLATELET COUNT 260 K/uL (130-400); RED CELL DISTRIBUTION WIDTH 13.6 % (11.5-14.5); WHITE BLOOD COUNT W/O DIFF 17.3 K/uL (4.2-12.2)
[2016-05-31 13:17] LABS: ALB/GLOB RATIO 1.3 (1.1-1.8); ALKALINE PHOSPHATASE 98 U/L (38-126); ALT/SGPT 86 U/L (21-72); ANION GAP 14.3 (7-16); AST/SGOT 65 U/L (17-59); BILIRUBIN,TOTAL 0.23 mg/dL (0.2-1.3); BLOOD UREA NITROGEN 15 mg/dL (9-20); CARBON DIOXIDE 28.7 mmol/L (22-30); CREATININE 0.8 mg/dL (0.66-1.25); EST GLOMERULAR FILTRATION RATE > 60 ml/min; GLUCOSE,RANDOM 135 mg/dL (70-110); TOTAL PROTEIN 7.2 gm/dL (6.3-8.2)
[2016-05-31] MEDS ORDERED: VANCOMYCIN HCL 500 MG in 0.9 % SODIUM CHLORIDE 100ML 100 ML IV ONE (15:00)
[2016-05-31] MEDS: SODIUM CHLORIDE 0.9% IV SCH (21:12)
[2016-05-31] MEDS: VANCOMYCIN HCL IV SCH (21:12)
[2016-05-31] MEDS ORDERED: LISINOPRIL 20 MG TABLET PO ONE (22:49)
[2016-06-01] MEDS: HYDROCODONE/APAP 5/325MG TABLET PO PRN (00:02)
[2016-06-01] MEDS: IPRATROPIUM/ALBUTEROL (0.5MG/3MG) NEB INH SCH ×6 (00:22→21:59)
[2016-06-01] MEDS: CEFEPIME HCL 2 GM in 0.9 % SODIUM CHLORIDE 100ML 100 ML IVPB SCH ×2 (03:19→11:06)
[2016-06-01] MEDS: SODIUM CHLORIDE 0.9% IV SCH ×2 (04:11→12:19)
[2016-06-01] MEDS: VANCOMYCIN HCL IV SCH ×2 (04:11→12:19)
[2016-06-01 06:33] LABS: HEMATOCRIT 46.2 % (42.0-52.0); HEMOGLOBIN 15.1 gm/dl (14.0-18.0); MEAN CELL VOLUME 91.8 fl (81-97); MEAN CORPUSCULAR HGB CONC 32.7 g/dl (32-36); MEAN PLATELET VOLUME 11.6 fl (7.4-10.4); PLATELET COUNT 255 K/uL (130-400); RED BLOOD COUNT 5.03 M/uL (4.40-5.70); RED CELL DISTRIBUTION WIDTH 13.3 % (11.5-14.5)
[2016-06-01 06:43] LABS: ALB/GLOB RATIO 1.3 (1.1-1.8); ALBUMIN 3.8 gm/dL (3.5-5.0); ALKALINE PHOSPHATASE 89 U/L (38-126); ALT/SGPT 77 U/L (21-72); ANION GAP 11.9 (7-16); AST/SGOT 39 U/L (17-59); BILIRUBIN,TOTAL 0.17 mg/dL (0.2-1.3); BLOOD UREA NITROGEN 15 mg/dL (9-20); CARBON DIOXIDE 27.1 mmol/L (22-30); CREATININE 0.8 mg/dL (0.66-1.25); EST GLOMERULAR FILTRATION RATE > 60 ml/min; GLUCOSE,RANDOM 88 mg/dL (70-110); TOTAL PROTEIN 6.8 gm/dL (6.3-8.2)
[2016-06-01 06:53] LABS: PLATELET ESTIMATE NORMAL (NORMAL)
[2016-06-01] MEDS: LISINOPRIL 20 MG TABLET PO SCH (09:54)
[2016-06-01] MEDS: ENOXAPARIN 40 MG/0.4 ML SYR SQ SCH (09:55)
[2016-06-01] MEDS: METHYLPREDNISOLONE PF 125MG/VIAL IVP SCH (09:55)
--- NOTE | 2016-06-01 10:13 | Physician Progress Note ---
Subjective - Date Date of Physician Progress Note: 06/01/16 - Subjective Subjective Comment: 06/01/16- Patient reports continuing to feel well today. He denies shortness of breath or chest pain. He continues to cough up dark brown sputum. He has been up and ambulating well without any dyspnea. He denies feeling feverish or chilled. Has been eating well. He would really like to go home today. Objective - Vital Signs Vital Signs: Vital Signs - Last 24 Hrs Temp Pulse Pulse Resp BP Pulse Ox 06/01/16 08:05 94 H 20 06/01/16 06:27 78 20 94 L 06/01/16 06:00 97.6 F 94 H 22 163/118 95 06/01/16 01:20 95 H 167/109 05/31/16 21:31 104 H 22 95 05/31/16 21:00 97.7 F 116 H 22 185/111 94 L 05/31/16 16:45 98.1 F 105 H 20 130/89 94 L - General General Appearance: Alert, Oriented x3, Cooperative, No acute distress - Head Head exam: Normal inspection - Eye Eye exam: Normal appearance, PERRL Pupils: Normal accommodation - ENT ENT exam: Normal exam, Mucous membranes moist, Normal external ear exam, Normal orophraynx, TM's normal bilaterally Ear exam: Normal external inspection. negative: External canal tenderness Nasal Exam: Normal inspection. negative: Discharge, Sinus tenderness Mouth exam: Normal external inspection, Tongue normal Teeth exam: Dental caries, Dental tenderness # (front lower tooth, loose as well ), Fractured tooth # (multiple). negative: Gingival enlargement Throat exam: Normal inspection. negative: Tonsillar erythema, Tonsillar exudate - Neck Neck exam: Normal inspection, Full ROM. negative: Tenderness - Respiratory Respiratory exam: Prolonged expiratory, Rhonchi (throughout the right lung and in the base of the left lung), Wheezes (few scattered expiratory wheezes). negative: Accessory muscle use, Chest wall tenderness - Cardiovascular Cardiovascular Exam: Regular rate, Normal rhythm, Normal heart sounds - GI/Abdominal GI/Abdominal exam: Soft, Normal bowel sounds. negative: Tenderness - Rectal Rectal exam: Deferred - exam: Deferred - Extremities Extremities exam: Normal inspection, Full ROM, Normal capillary refill. negative: Calf tenderness, Pedal edema, Tenderness - Back Back exam: Reports: Normal inspection, Full ROM. Denies: CVA tenderness (R), CVA tenderness (L), Muscle spasm, Rash noted, Tenderness - Neurological Neurological exam: Alert, CN II-XII intact, Normal gait, Oriented X3, Reflexes normal - Psychiatric Psychiatric exam: Normal affect, Normal mood - Skin Skin exam: Dry, Intact, Normal color, Warm Assessment and Plan - Assessment and Plan (1) Pneumonia Current Visit: Yes Status: Acute Qualifiers: Pneumonia type: due to unspecified organism Laterality: bilateral Lung location: unspecified part of lung Qualified Code(s): J18.9 - Pneumonia, unspecified organism Base Code: J18.9 - PNEUMONIA, UNSPECIFIED ORGANISM Comment: 06/01/16: Clinically improving. CTA of chest demonstrates findings consistent with bilateral perihilar pneumonia. sputum culture showing staph and sensitivity is pending. Legionella antigen negative. WBC back up to 21 today. Patient remains afebrile. No blood cultures obtained prior to antibiotic initiation while in the ED -continue vancomycin 500mg IV q8H and cefepime 2gm IV q8H until sensitivity report returns. Will discuss appropriate oral abx with pharmacy once sensitivity report available. - discontinue the solumedrol. Patient no longer SOB and feel it may be causing elevation in WBC count, heart rate and blood pressure. -add mucinex 1200mg PO BId -add incentive spirometry with vibratory pep valve to help move secretions. - Monitor VS Q8 hours. - Repeat chest imaging within the next 7 days to one month with CT scan (2) Chest pain Current Visit: Yes Status: Acute Qualifiers: Chest pain type: other chest pain Qualified Code(s): R07.89 - Other chest pain; R07.8 - Other chest pain Base Code: R07.9 - CHEST PAIN, UNSPECIFIED Comment: 06/01/16: Resolved. Most likely cause was PNA. CTA of chest consistent with b/l perihilar PNA. CE negative x 3. Creatinine kinase has normalized. EKG : no acute changes x 2. - Monitor VS's Q8 hours. - Discontinue telemetry - Patient will need to be set up with PCP prior to discharge. (3) DVT prophylaxis Current Visit: Yes Status: Acute Base Code: [id number] - Comment: 06/01/16: decreased mobility. - Lovenox 40 mg sq daily for dvt prophylaxis. (4) Full code status Current Visit: Yes Status: Acute Base Code: Z78.9 - OTHER SPECIFIED HEALTH STATUS Comment: 06/01/16: patient is full code. (5) Pain, dental Current Visit: Yes Status: Acute Base Code: K08.89 - OTHER SPECIFIED DISORDERS OF TEETH AND SUPPORTING STRUCTURES Comment: 06/01/16: no abscess appreciated on exam. front tooth loose. patient has dentist appointment scheduled for next week. -Will monitor closely for any worsening symptoms. (6) Hypertension Current Visit: Yes Status: Acute Qualifiers: Hypertension type: essential hypertension Qualified Code(s): I10 - Essential (primary) hypertension Base Code: I10 - ESSENTIAL (PRIMARY) HYPERTENSION Comment: 06/01/16- BP consistently elevated >140/90. Do feel that may be partly related to solumedrol. -will start lisinopril 20mg po daily -continue to monitor VS q8H Results - Labs Result Diagrams: 06/01/16 06:05 06/01/16 06:05 Labs Last 24 Hours: Laboratory Results - last 24 hr 05/31/16 05/31/16 05/31/16 12:58 12:58 12:58 WBC 17.3 H RBC 5.00 Hgb 15.1 Hct 46.2 MCV 92.4 MCH 30.2 MCHC 32.7 RDW 13.6 Plt Count 260 MPV 11.2 H Neutrophils % 84.0 H Band Neutrophils % Lymphocytes % 10.0 L Monocytes % 6.0 Eosinophils % Not Reportable Basophils % Not Reportable Platelet Estimate RBC Morphology Sodium 140 Potassium 4.3 Chloride 97 L Carbon Dioxide 28.7 Anion Gap 14.3 BUN 15 Creatinine 0.8 Estimated GFR > 60 Random Glucose 135 H Calcium 9.1 Total Bilirubin 0.23 AST 65 H ALT 86 H Alkaline Phosphatase 98 Total Protein 7.2 Albumin 4.0 Globulin 3.2 Albumin/Globulin Ratio 1.3 Vancomycin Trough 10.4 06/01/16 06/01/16 06:05 06:05 WBC 21.0 H* RBC 5.03 Hgb 15.1 Hct 46.2 MCV 91.8 MCH 30.0 MCHC 32.7 RDW 13.3 Plt Count 255 MPV 11.6 H Neutrophils % 79.0 Band Neutrophils % 3.0 Lymphocytes % 10.0 L Monocytes % 8.0 Eosinophils % Not Reportable Basophils % Not Reportable Platelet Estimate Normal RBC Morphology Normal Sodium 139 Potassium 4.3 Chloride 100 Carbon Dioxide 27.1 Anion Gap 11.9 BUN 15 Creatinine 0.8 Estimated GFR > 60 Random Glucose 88 Calcium 8.9 Total Bilirubin 0.17 L AST 39 ALT 77 H Alkaline Phosphatase 89 Total Protein 6.8 Albumin 3.8 Globulin 3.0 Albumin/Globulin Ratio 1.3 Vancomycin Trough DVT/PE Assessment - Risk for VTE Risk for VTE: No Risk Level: Moderate Risk Assessment Date: 05/29/16 Risk Assessment Time: 11:00 VTE Orders Placed or Will Be Placed: Yes - Active Medicaitons Current Medications: Current Medications Acetaminophen (Tylenol 500mg Tab) 1,000 mg PO Q6H PRN PRN Reason: PAIN/TEMP Last Admin: 05/30/16 03:31 Dose: 1,000 mg Acetaminophen/Hydrocodone Bitart (Sheldahl 5mg/325mg) 1 each PO Q6H PRN PRN Reason: Pain - General Last Admin: 05/30/16 18:43 Dose: 1 each Acetaminophen/Hydrocodone Bitart (Sheldahl 5mg/325mg) 2 each PO Q6H PRN PRN Reason: Pain - General Last Admin: 06/01/16 00:02 Dose: 2 each Albuterol Sulfate () 2.5 mg INH RESP.Q4H.AK PRN PRN Reason: DIFFICULTY IN BREATHING Albuterol/Ipratropium (Duoneb) 3 ml INH RESP.Q4H.[facility] Last Admin: 06/01/16 06:24 Dose: 3 ml Enoxaparin Sodium (Lovenox) 40 mg SQ DAILY [facility] Last Admin: 06/01/16 09:55 Dose: Not Given CEFEPIME HCL 2 gm/ Sodium (Chloride) 100 mls @ 200 mls/hr IVPB Q8H [facility] Last Admin: 06/01/16 03:19 Dose: 200 mls/hr Vancomycin HCl 1.5 gm/ Sodium (Chloride) 500 mls @ 333.333 mls/hr IV Q8H [facility] Last Admin: 06/01/16 04:11 Dose: 200 mls/hr Ibuprofen (Motrin 400mg) 800 mg PO Q8H PRN PRN Reason: Pain - General Last Admin: 05/29/16 23:47 Dose: 800 mg Lisinopril (Zestril) 20 mg PO DAILY [facility] Last Admin: 06/01/16 09:54 Dose: 20 mg Methylprednisolone Sodium Succinate (Solu-Medrol) 60 mg IVP DAILY [facility] Last Admin: 06/01/16 09:55 Dose: 60 mg AMI Plan - Labs Result Diagrams: 06/01/16 06:05 06/01/16 06:05
[2016-06-01] MEDS: GUAIFENESIN 1,200 MG TABLET PO SCH ×2 (11:22→21:13)
[2016-06-01] MEDS: LEVOFLOXACIN 500 MG TABLET PO SCH (15:50)
[2016-06-02] MEDS: IPRATROPIUM/ALBUTEROL (0.5MG/3MG) NEB INH SCH ×2 (06:06→09:54)
[2016-06-02] MEDS: IBUPROFEN 400 MG TABLET PO PRN (06:15)
[2016-06-02 06:33] LABS: HEMATOCRIT 47.5 % (42.0-52.0); HEMOGLOBIN 15.7 gm/dl (14.0-18.0); MEAN CELL VOLUME 90.8 fl (81-97); MEAN CORPUSCULAR HGB CONC 33.1 g/dl (32-36); PLATELET COUNT 273 K/uL (130-400); RED BLOOD COUNT 5.23 M/uL (4.40-5.70); RED CELL DISTRIBUTION WIDTH 13.1 % (11.5-14.5)
[2016-06-02 06:39] LABS: WHITE BLOOD COUNT W/O DIFF 23.2 K/uL (4.2-12.2)
[2016-06-02 06:48] LABS: PLATELET ESTIMATE NORMAL (NORMAL)
[2016-06-02 06:49] LABS: ALB/GLOB RATIO 1.4 (1.1-1.8); ALBUMIN 4.1 gm/dL (3.5-5.0); ALKALINE PHOSPHATASE 92 U/L (38-126); ALT/SGPT 77 U/L (21-72); ANION GAP 14.8 (7-16); AST/SGOT 32 U/L (17-59); BILIRUBIN,TOTAL 0.19 mg/dL (0.2-1.3); BLOOD UREA NITROGEN 20 mg/dL (9-20); CARBON DIOXIDE 26.2 mmol/L (22-30); CREATININE 0.8 mg/dL (0.66-1.25); EST GLOMERULAR FILTRATION RATE > 60 ml/min; GLUCOSE,RANDOM 89 mg/dL (70-110); TOTAL PROTEIN 7.1 gm/dL (6.3-8.2)
[2016-06-02] MEDS: LEVOFLOXACIN 500 MG TABLET PO SCH (09:15)
[2016-06-02] MEDS: LISINOPRIL 20 MG TABLET PO SCH (09:15)
[2016-06-02] MEDS: ENOXAPARIN 40 MG/0.4 ML SYR SQ SCH (09:15)
[2016-06-02] MEDS: GUAIFENESIN 1,200 MG TABLET PO SCH (09:15)
--- NOTE | 2016-06-02 10:49 | RADIOLOGY REPORT ---
EXAM: CHEST, TWO VIEWS HISTORY: FOLLOW-UP PNEUMONIA TECHNIQUE: Two views of the chest were provided along with the comparison study dated 05/28/16. FINDINGS: The cardiomediastinal silhouette is within normal limits for size and contour. The cady appear unremarkable. COPD changes are again identified. There is no radiographic evidence of a focal infiltrate or pleural effusion. IMPRESSION: NO RADIOGRAPHIC EVIDENCE OF AN ACUTE INTRATHORACIC PROCESS. JOB NUMBER: [id number] [facility]
--- NOTE | 2016-06-02 11:27 | Discharge Summary ---
Providers Discharge Summary Date: 06/02/16 Date of admission: 05/28/16 23:31 Expected Date of Discharge: 06/02/16 Attending physician: JACI CASTAÑEDA Physical Exam - Vital Signs Vital Signs: Vital Signs - Last 24 Hrs Temp Pulse Pulse Pulse Resp BP Pulse Ox 06/02/16 09:58 96 H 16 97 06/02/16 09:00 98.5 F 100 H 18 151/111 96 06/02/16 07:44 96 H 16 06/02/16 06:06 100 H 16 95 06/02/16 01:00 97.6 F 101 H 16 145/96 92 L 06/01/16 22:06 95 06/01/16 21:00 16 06/01/16 18:05 90 16 06/01/16 17:00 98.8 F 16 155/103 95 06/01/16 14:30 96 H 16 - General General Appearance: Alert, Oriented x3, Cooperative, No acute distress - Head Head exam: Normal inspection - Eye Eye exam: Normal appearance, PERRL Pupils: Normal accommodation - ENT ENT exam: Normal exam, Mucous membranes moist, Normal external ear exam, Normal orophraynx, TM's normal bilaterally Ear exam: Normal external inspection. negative: External canal tenderness Nasal Exam: Normal inspection. negative: Discharge, Sinus tenderness Mouth exam: Normal external inspection, Tongue normal Teeth exam: Dental caries, Dental tenderness # (front lower tooth, loose as well ), Fractured tooth # (multiple). negative: Gingival enlargement Throat exam: Normal inspection. negative: Tonsillar erythema, Tonsillar exudate - Neck Neck exam: Normal inspection, Full ROM. negative: Tenderness - Respiratory Respiratory exam: Prolonged expiratory, Rhonchi (throughout the right lung and in the base of the left lung), Wheezes (few scattered expiratory wheezes). negative: Accessory muscle use, Chest wall tenderness - Cardiovascular Cardiovascular Exam: Regular rate, Normal rhythm, Normal heart sounds - GI/Abdominal GI/Abdominal exam: Soft, Normal bowel sounds. negative: Tenderness - Rectal Rectal exam: Deferred - exam: Deferred - Extremities Extremities exam: Normal inspection, Full ROM, Normal capillary refill. negative: Calf tenderness, Pedal edema, Tenderness - Back Back exam: Reports: Normal inspection, Full ROM. Denies: CVA tenderness (R), CVA tenderness (L), Muscle spasm, Rash noted, Tenderness - Neurological Neurological exam: Alert, CN II-XII intact, Normal gait, Oriented X3, Reflexes normal - Psychiatric Psychiatric exam: Normal affect, Normal mood - Skin Skin exam: Dry, Intact, Normal color, Warm Hospitalization - Hospitalization Admission Diagnosis: Bilateral pneumonia; COPD exacerbation; chest pain; leukocytosis - Problem List/Discharge Diagnosis (1) Pneumonia Status: Acute Discharge Diagnosis: Pneumonia type: due to unspecified organism Laterality: bilateral Lung location: unspecified part of lung Qualified Code(s): J18.9 - Pneumonia, unspecified organism Base Code: J18.9 - PNEUMONIA, UNSPECIFIED ORGANISM Comment: 06/02/16: Continues to improve. repeat CXR showed no infitrate visible. sputum showed staph not methicillin resistant. Legionella antigen negative. WBC back up to 23 today. Suspect this may be related to dental abscesses more so than chest pathology. Patient remains afebrile. No blood cultures obtained prior to antibiotic initiation while in the ED -Will continue levaquin 500mg po daily for 4 more days for full 10 day course of antibiotics -will add oral clindamycin 300mg pO q6h for 10 days for anaerobe coverage for dental infection. Patient has dental appointment next week. -continue mucinex 1200mg PO BId along with adequate hydration -gave patient new patient information to establish with [facility] and we will have bilingual medical receptionist contact him to schedule appointment within 7 days (2) Chest pain Status: Acute Discharge Diagnosis: Chest pain type: other chest pain Qualified Code(s): R07.89 - Other chest pain; R07.8 - Other chest pain Base Code: R07.9 - CHEST PAIN, UNSPECIFIED Comment: 06/02/16: Resolved. Most likely cause was PNA. CTA of chest consistent with b/l perihilar PNA. CE negative x 3. Creatinine kinase has normalized. EKG : no acute changes x 2. - Monitor VS's Q8 hours. - Discontinue telemetry - Patient given new pt packet for [facility] (3) Hypertension Status: Acute Discharge Diagnosis: Hypertension type: essential hypertension Qualified Code(s): I10 - Essential (primary) hypertension Base Code: I10 - ESSENTIAL (PRIMARY) HYPERTENSION Comment: 06/02/16- BP consistently elevated >140/90. Do feel that may be partly related to solumedrol. -continue lisinopril 20mg po daily -follow up as outpatient. Given [facility] new patient information and will have bilingual medical receptionist contact him to schedule follow up in next 7 days (4) Pain, dental Status: Acute Base Code: K08.89 - OTHER SPECIFIED DISORDERS OF TEETH AND SUPPORTING STRUCTURES Comment: 06/02/16: Possible abscess formation 2/2 dental fracture. This is likely causing elevated WBC count rather than chest pathology as repeat CXR shows no infiltrate. On appropriate abx therapy but needs to be set up for dental extraction and possibly I&D. patient has dentist appointment scheduled for next week will continue abx until seen. Explained taht he needs to return to ED at any time if dental pain progresses or if he has swelling, drainage, or fevers while on the clindamycin to which he agrees (5) Full code status Status: Acute Base Code: Z78.9 - OTHER SPECIFIED HEALTH STATUS Comment: 06/02/16: patient is full code. (6) DVT prophylaxis Status: Acute Base Code: [id number] - Comment: 06/02/16: decreased mobility. - Lovenox 40 mg sq daily for dvt prophylaxis. - Hospitalization Course Disposition: Home, Self-Care Hospital Course: 51 yo male admitted for pneumonia. PMHx of smoking x 35 years (smoked 1-1.5 ppd , quit 2 years ago), COPD, marijuana use, obesity. Patient began having CP, CARIN and nausea about 4-5 days ago. Aggravated by nothing. Alleviated by IV antibiotics, breathing treatment and steroid in the ER. Prior to coming in, patient trialled OTC nsaids & cough supressant. However , his symptoms worsened on Monday. Patient then had a friend drive him to our ER. While in the ER, Temp 98.3, HR 126, BP 146/108, RR 18, O2 93% on RA. WBC 17.5, hgb/ hct normal, plt 264, sodium 141, potassium 4.3, chloride 96, CO2 31.4, BUN 11, Cr. 0.8, glucose 84. d-dimer: 0.60, troponin negative x 2, creatinine kinase 299 (decreased to 228). CXR: mild COPD, intersitial changes, NAP. CTA: no PE/aneurysm, Left posterior saida hilar nodule, consistent with PNA, minor infectior right saida hilar opacity. F/up recommended by radiologist to confirm clearing of non calcified nodule in right lung. EKG: sinus tach, LAE, infect infarct (old). 125 mg of solu medrol administered. Duo neb treatments initiated. He was started on 500 mg of PO Azithromycin daily and 2 gm of IV Rocephin. He was then admitted for further medical management. 05/29/16-This morning, patient is lying comfortably in bed. He feels much less sob. CP has resolved. He's coughing up green, yellow sputum. No fever, chills , n/v, diaphoresis, diarrhea, abd pain, headache, dysuria, change in bowel habits, or unintentional weight loss. Patient denies any sick contacts. He traveled to [place] about 8 months ago. No changes to medications. No previous hospitalizations. No primary care provider. Went to an urgent care 2 months ago for a cough, which improved with cough syrup. 50 pack year smoking history. Both his parents have had IL's. Denies any known h/o HBP, high cholesterol, DVT, CVA or IL. 05/30/16- patient sitting up in bed comfortably. c/o front, lower dental pain. States he was yawning and cracked a tooth. Patient has a loose front lower tooth as well. poor dentition. denies dental visits q 6 months. Continue to have a green/yellow productive cough. Intermittent chest pain associated with cough. Afebrile. fatigue related to cough. No skin changes, headache, abd pain , change in bowel/bladder function. no additional concerns by patient. Addendum entered and electronically signed by Liliana Castro P.A. 11:16: Re- evaluated patient today around 11 am. Patient now c/o headache and vision blurring. he has a warm, red inflamed area on the back of his neck. ROM of neck is normal. no skin changes. no opened wounds on skin. C/o right knee erythema and inflammation two days ago, now states this has resolved. Will obtain head/cervical spine CT and discuss initiating strong antibiotic coverage. Addendum entered and electronically signed by Liliana Castro P.A. 13:23: Neuro exam unremarkable. Head/ neck CT negative. Patient much more comfortable , sitting up in bed. Less sob. dental pain present though controlled. Vanco and Cefepime initiated. 05/31/16- Patient reports feeling much better today. He says the pain in the left side of his chest has completely resolved. He denies any pain with deep inhalation or cough. He denies feeling short of breath. He is continuing to have a productive cough and says the green/yellow sputum is coming up easier now. He is not feeling fatigued, having fevers or chills and wants to go home. 06/01/16- Patient reports continuing to feel well today. He denies shortness of breath or chest pain. He continues to cough up dark brown sputum. He has been up and ambulating well without any dyspnea. He denies feeling feverish or chilled. Has been eating well. He would really like to go home today. 06/02/16- Patient continues to do well. Cough is decreasing now and sputum is starting to thin. Continues to deny any dyspnea at rest or with exertion. He says his teeth are the only thing that is still bothering him. He denies fever, chills, nausea. Has been eating well. Procedures: Imaging and X-Rays 05/30/16 11:12 HEAD WO CONTRAST [CT] Stat 05/30/16 12:12 SOFT TISSUE NECK W CONTRAST [CT] Stat 06/02/16 09:36 CHEST 2 VIEWS [RAD] Stat Abnormal Labs: Abnormal Lab Results 05/29/16 05/30/16 05/30/16 Range/Units 06:00 06:10 06:10 WBC 30.4 H* (4.2-12.2) K/uL MPV 11.5 H (7.4-10.4) fl Neutrophils % 88.0 H (47-80) % Lymphocytes % 6.0 L (16-45) % Chloride (98-107) mmol/L Anion Gap 16.3 H (7-16) BUN 21 H (9-20) mg/dL Random Glucose 117 H (70-110) mg/dL Total Bilirubin (0.2-1.3) mg/dL AST (17-59) U/L ALT (21-72) U/L Creatine Kinase 228 H (55-170) U/L Vancomycin Trough (5.0-20.0) ug/mL 05/31/16 05/31/16 06/01/16 Range/Units 12:58 12:58 06:05 WBC 17.3 H 21.0 H* (4.2-12.2) K/uL MPV 11.2 H 11.6 H (7.4-10.4) fl Neutrophils % 84.0 H (47-80) % Lymphocytes % 10.0 L 10.0 L (16-45) % Chloride 97 L (98-107) mmol/L Anion Gap (7-16) BUN (9-20) mg/dL Random Glucose 135 H (70-110) mg/dL Total Bilirubin (0.2-1.3) mg/dL AST 65 H (17-59) U/L ALT 86 H (21-72) U/L Creatine Kinase (55-170) U/L Vancomycin Trough (5.0-20.0) ug/mL 06/01/16 06/01/16 06/02/16 Range/Units 06:05 12:10 06:25 WBC 23.2 H* (4.2-12.2) K/uL MPV 11.0 H (7.4-10.4) fl Neutrophils % 81.0 H (47-80) % Lymphocytes % 10.0 L (16-45) % Chloride (98-107) mmol/L Anion Gap (7-16) BUN (9-20) mg/dL Random Glucose (70-110) mg/dL Total Bilirubin 0.17 L (0.2-1.3) mg/dL AST (17-59) U/L ALT 77 H (21-72) U/L Creatine Kinase (55-170) U/L Vancomycin Trough 20.1 H* (5.0-20.0) ug/mL 06/02/16 Range/Units 06:25 WBC (4.2-12.2) K/uL MPV (7.4-10.4) fl Neutrophils % (47-80) % Lymphocytes % (16-45) % Chloride (98-107) mmol/L Anion Gap (7-16) BUN (9-20) mg/dL Random Glucose (70-110) mg/dL Total Bilirubin 0.19 L (0.2-1.3) mg/dL AST (17-59) U/L ALT 77 H (21-72) U/L Creatine Kinase (55-170) U/L Vancomycin Trough (5.0-20.0) ug/mL Condition at Discharge: (2) Stable Discharge Medications - Discharge Medications Prescriptions: Clindamycin HCl [Cleocin HCl] 300 mg PO Q6HR #28 capsule Levofloxacin [Levaquin] 500 mg PO DAILY #4 tablet Lisinopril 20 mg PO DAILY #30 tab Home Medications: Ambulatory Orders Clindamycin HCl [Cleocin HCl] 300 mg PO Q6HR #28 capsule 06/02/16 [Last Taken Unknown] Levofloxacin [Levaquin] 500 mg PO DAILY #4 tablet 06/02/16 [Last Taken Unknown] Lisinopril 20 mg PO DAILY #30 tab 06/02/16 [Last Taken Unknown] Discharge Plan - Discharge Instructions Activity at Discharge: Resume Usual Activities As Tolerated Diet at Discharge: Low Fat, Low Cholesterol, Low Salt Diet Instructions: Clindamycin (By mouth), Lisinopril (By mouth), Levofloxacin (By mouth), Chronic Obstructive Pulmonary Disease (DC), Community-acquired Pneumonia (DC) Additional Instructions: 2 Activity: Resume Usual Activities As Tolerated 2 Diet: Low Fat, Low Cholesterol Low Salt Diet 2 Consults: 2 Follow Up: Please complete new patient form and we will contact you to schedule appointment as new patient with the [facility] 2 Dressing/Wound Care: (Type) (Change) 2 Additional: [] Continue Levaquin and Clindamycin until gone Continue Lisinopril 20mg daily for blood pressure Please make follow up dentist appointment within 1 week
== END 2016-06-02 12:44 | disposition home or self-care (01) | DRG 194 ==
LOC: ER 20:26 → MEDSURG 23:31
PROVIDERS: ADMIT Family Medicine; ATTEND Family Medicine
DX: J18.9 Pneumonia, unspecified organism (principal); J44.1 Chronic obstructive pulmonary disease with (acute) exacerbation; Z78.9 Other specified health status; K08.89 Other specified disorders of teeth and supporting structures; I10 Essential (primary) hypertension; R07.89 Other chest pain
CPT/HCPCS: 70450; 70491; 71020; 71275; 80048; 80053; 80202; 82550; 82553; 84484; 85027; 85379; 85610; 85730; 87070; 87449; 93005; 93010; 94010; 94640; 94667; 94668; 94760; 94761; 96374; 96375; 99223; 99233; 99239; 99285; J1650; J1956; J2360; J2930; J3370; J7040; J7050; J7613

== ENCOUNTER 2017-04-16 18:02 | Emergency (ER) | payer MEDICAID ==
[2017-04-16] MEDS ORDERED: IPRATROPIUM/ALBUTEROL (0.5MG/3MG) NEB INH ONE (18:43)
[2017-04-16] MEDS ORDERED: METHYLPREDNISOLONE PF 125MG/VIAL IVP ONE (18:43)
[2017-04-16 19:10] LABS: BASO % 0.5 % (0-6); GRAN % 75.7 % (47-80); HEMATOCRIT 47.4 % (42.0-52.0); HEMOGLOBIN 16.4 gm/dl (14.0-18.0); LYMPH % 13.7 % (16-45); MEAN CELL VOLUME 88.4 fl (81-97); MEAN CORPUSCULAR HEMOGLOBIN 30.6 pg (27-33); MEAN CORPUSCULAR HGB CONC 34.6 g/dl (32-36); MEAN PLATELET VOLUME 11.5 fl (7.4-10.4); MONO % 9.1 % (0-9); PLATELET COUNT 199 K/uL (130-400); RED BLOOD COUNT 5.36 M/uL (4.40-5.70); RED CELL DISTRIBUTION WIDTH 13.4 % (11.5-14.5); WHITE BLOOD COUNT W/O DIFF 9.9 K/uL (4.2-12.2)
[2017-04-16 19:23] LABS: BLOOD UREA NITROGEN 14 mg/dL (6-20); EST GLOMERULAR FILTRATION RATE > 60 mL/min
[2017-04-16 19:26] LABS: GLUCOSE,RANDOM 106 mg/dL (74-109)
[2017-04-16] MEDS ORDERED: ALBUTEROL SULFATE (0.083%) 2.5 MG/3 ML NEB INH ONE (20:34)
--- NOTE | 2017-04-16 20:40 | Emergency Department Record ---
History of Present Illness - General Chief Complaint: Difficulty Breathing Stated Complaint: CARIN,COPD Time Seen by Provider: 04/16/17 18:37 Source: Patient Mode of Arrival: Ambulatory Limitations: No limitations - History of Present Illness Initial Comments: pt has been increasingly sob w productive cough green/yellow Complaint: Cough, Shortness of breath Onset/Timin -: Days(s) Severity: Moderate Severity scale (1-10): 8 Quality: Aching Consistency: Constant Improves With: Bronchodilators Worsens With: Medication Known History Of: COPD Context: Recent URI Associated Symptoms: Cough Treatments Prior to Arrival: Bronchodilator - Related Data Home Oxygen Therapy: No Previous Rx's Medication Instructions Recorded Amlodipine Besylate [Norvasc] 5 mg PO DAILY #20 tab 04/16/17 Azithromycin [Zithromax] 250 mg PO DAILY #4 tab 04/16/17 Prednisone [Prednisone 20Mg] 20 mg PO BIDPC #8 tab 04/16/17 Allergies Allergy/AdvReac Type Severity Reaction Status Date / Time No Known Drug Allergies Allergy Verified 04/16/17 18:23 Travel Screening - Travel/Exposure Within Last 30 Days Have you traveled within the last 30 days?: No - Travel/Exposure Within Last Year Have you traveled outside the [place] in the last year?: No - Additonal Travel Details Have you been exposed to anyone with a communicable illness?: No - Travel Symptoms Symptom Screening: None Review of Systems Reviewed: No additional complaints except as noted below Constitutional: Reports: As per HPI. Denies: Chills, Fever, Malaise, Night sweats, Weakness, Weight change Eyes: Reports: As per HPI. Denies: Eye discharge, Eye pain, Photophobia, Vision change ENT: Reports: As per HPI. Denies: Congestion, Dental pain, Ear pain, Epistaxis , Hearing loss, Throat pain Respiratory: Reports: As per HPI. Denies: Cough, Dyspnea, Hemoptysis, Stridor, Wheezes Cardiovascular: Reports: As per HPI. Denies: Arrhythmia, Chest pain, Dyspnea on exertion, Edema, Murmurs, Orthopnea, Palpitations, Paroxysmal nocturnal dyspnea, Rheumatic Fever, Syncope Endocrine: Reports: As per HPI. Denies: Fatigue, Heat or cold intolerance, Polydipsia, Polyuria Gastrointestinal: Reports: As per HPI. Denies: Abdominal pain, Constipation, Diarrhea, Hematemesis, Hematochezia, Melena, Nausea, Vomiting Genitourinary: Reports: As per HPI. Denies: Dysuria, Frequency, Hematuria, Incontinence, Retention, Testicular pain, Testicular mass, Urgency Musculoskeletal: Reports: As per HPI. Denies: Arthralgia, Back pain, Gout, Joint swelling, Myalgia, Neck pain Skin: Reports: As per HPI. Denies: Bruising, Change in color, Change in hair/ nails, Lesions, Pruritus, Rash Neurological: Reports: As per HPI. Denies: Abnormal gait, Confusion, Headache, Numbness, Paresthesias, Seizure, Tingling, Tremors, Vertigo, Weakness Psychiatric: Reports: As per HPI. Denies: Anxiety, Auditory hallucinations, Depression, Homicidal thoughts, Suicidal thoughts, Visual hallucinations Hematological/Lymphatic: Reports: As per HPI. Denies: Anemia, Blood Clots, Easy bleeding, Easy bruising, Swollen glands Past Medical History - SOCIAL HISTORY Smoking Status: Former smoker Alcohol Use: None Drug Use: Occasional Drug Use Detail:: Marijuana - RESPIRATORY Hx Respiratory Disorders: Yes Hx COPD: Yes (diagnosed 2016) Hx Pneumonia: Yes (Jun, 2016) - CARDIOVASCULAR Hx Cardio Disorders: No Hx Hypertension: Yes - NEURO Hx Neuro Disorders: No - GI Hx GI Disorders: No - Hx Genitourinary Disorders: No - ENDOCRINE Hx Endocrine Disorders: No - MUSCULOSKELETAL Hx Musculoskeletal Disorders: No - PSYCH Hx Psych Problems: No - HEMATOLOGY/ONCOLOGY Hx Hematology/Oncology Disorders: No Family Medical History Any Significant Family History?: Yes Hx Cancer: Father Hx Diabetes: Mother Hx Heart Disease: Mother Physical Exam - General General Appearance: Alert, Oriented x3, Cooperative, Mild distress - Head Head exam: Normal inspection - Eye Eye exam: Normal appearance, PERRL, EOMI Pupils: Normal accommodation - ENT ENT exam: Normal exam, Mucous membranes moist, Normal external ear exam, Normal orophraynx Ear exam: Normal external inspection. negative: External canal tenderness Nasal Exam: Normal inspection. negative: Discharge, Sinus tenderness Mouth exam: Normal external inspection, Tongue normal Teeth exam: Normal inspection. negative: Dental caries Throat exam: Normal inspection. negative: Tonsillar erythema, Tonsillar exudate - Neck Neck exam: Normal inspection, Full ROM. negative: Tenderness - Respiratory Respiratory exam: Accessory muscle use, Respiratory distress, Wheezes - Cardiovascular Cardiovascular Exam: Regular rate, Normal rhythm, Normal heart sounds - GI/Abdominal GI/Abdominal exam: Soft, Normal bowel sounds. negative: Tenderness - Rectal Rectal exam: Deferred - exam: Deferred - Extremities Extremities exam: Normal inspection, Full ROM, Normal capillary refill. negative: Tenderness - Back Back exam: Reports: Normal inspection, Full ROM. Denies: Muscle spasm, Rash noted, Tenderness - Neurological Neurological exam: Alert, CN II-XII intact, Normal gait, Oriented X3 - Psychiatric Psychiatric exam: Normal affect, Normal mood - Skin Skin exam: Dry, Intact, Normal color, Warm Course Vital Signs 04/16/17 04/16/17 04/16/17 18:17 18:59 19:52 Temperature 97.5 F L Pulse Rate 119 H 102 H Pulse Rate [ Pulse Ox Probe] Respiratory 18 18 22 Rate Blood Pressure 125/94 Blood Pressure 123/89 [Left Arm] Pulse Ox 94 L 96 90 L 04/16/17 04/16/17 19:55 20:20 Temperature Pulse Rate Pulse Rate [ 98 H Pulse Ox Probe] Respiratory 20 Rate Blood Pressure Blood Pressure [Left Arm] Pulse Ox 95 93 L - Reevaluation(s) Reevaluation #1: 04/16/17 20:42 pt feels better Medical Decision Making - Lab Data Result diagrams: 04/16/17 19:01 04/16/17 19:01 Lab Results 04/16/17 04/16/17 Range/Units 19:01 19:01 WBC 9.9 (4.2-12.2) K/uL RBC 5.36 (4.40-5.70) M/uL Hgb 16.4 (14.0-18.0) gm/dl Hct 47.4 (42.0-52.0) % MCV 88.4 (81-97) fl MCH 30.6 (27-33) pg MCHC 34.6 (32-36) g/dl RDW 13.4 (11.5-14.5) % Plt Count 199 (130-400) K/uL MPV 11.5 H (7.4-10.4) fl Gran % 75.7 (47-80) % Lymphocytes % 13.7 L (16-45) % Monocytes % 9.1 H (0-9) % Eosinophils % 1.0 (0-6) % Basophils % 0.5 (0-6) % Sodium 137 (136-145) mmol/L Potassium 4.5 (3.4-4.5) mmol/L Chloride 97 L (98-107) mmol/L Carbon Dioxide 27.0 (22-29) mmol/L Anion Gap 13.0 (7-16) BUN 14 (6-20) mg/dL Creatinine 1.0 (0.7-1.2) mg/dL Estimated GFR > 60 mL/min Random Glucose 106 (74-109) mg/dL Calcium 9.6 (8.6-10.0) mg/dL Disposition Disposition: Discharge Clinical Impression: Acute exacerbation of chronic obstructive pulmonary disease Acute bronchitis Qualifiers: Bronchitis organism: unspecified organism Qualified Code(s): J20.9 - Acute bronchitis, unspecified Disposition: Home, Self-Care Condition: (1) Good Instructions: Dyspnea (ED), COPD (Chronic Obstructive Pulmonary Disease) (ED), Acute Bronchitis (ED) Additional Instructions: follow up with family doctor. return sooner if worse. Prescriptions: Amlodipine Besylate [Norvasc] 5 mg PO DAILY #20 tab Azithromycin [Zithromax] 250 mg PO DAILY #4 tab Prednisone [Prednisone 20Mg] 20 mg PO BIDPC #8 tab Quality - Quality Measures Quality Measures: N/A - Blood Pressure Screening Does Patient Have Any of the Following: Active Dx of HTN Blood Pressure Classification: Hypertensive Reading Systolic Measurement: 125 Diastolic Measurement: 94 Screening for High Blood Pressure: Patient Exclusion, Hx of HTN [G9744]
[2017-04-16] MEDS ORDERED: PROMETHAZINE W/CODEINE 10ML UD PO ONE ×2 (20:45→21:04)
[2017-04-16] MEDS ORDERED: AZITHROMYCIN 500 MG TABLET PO ONE (20:51)
--- NOTE | 2017-04-17 08:14 | RADIOLOGY REPORT ---
EXAM: CHEST, TWO VIEWS HISTORY: ACUTE SHORTNESS OF BREATH, NONPRODUCTIVE COUGH. TECHNIQUE: Two views of the chest were obtained. Comparison: CT of the chest 05/28/16. FINDINGS: The lungs are hyperinflated although otherwise clear. The cardiac silhouette is not enlarged. The diaphragm is flattened. Osteopenia. IMPRESSION: EMPHYSEMA. NO ACUTE INTRATHORACIC PROCESS WITH NO CHANGE. JOB NUMBER: [id number] [facility]TD[facility]
== END 2017-04-16 21:26 | disposition home or self-care (01) ==
LOC: ER 18:02
DX: J44.1 Chronic obstructive pulmonary disease with (acute) exacerbation (principal); J20.9 Acute bronchitis, unspecified; J44.0 Chronic obstructive pulmonary disease with (acute) lower respiratory infection; Z87.891 Personal history of nicotine dependence
CPT/HCPCS: 71020; 80048; 85025; 94640; 96374; 99284; J2930; J7613

== ENCOUNTER 2018-12-06 14:08 | Emergency (ER) | payer MEDICAID ==
--- NOTE | 2018-12-06 14:25 | Emergency Department Record ---
History of Present Illness - General Chief Complaint: Chest Pain Stated Complaint: CHEST PAIN Time Seen by Provider: 12/06/18 14:19 Source: Patient Mode of Arrival: Ambulatory Limitations: No limitations - History of Present Illness Initial Comments: The patient is here due to a 2 week hx of intermittent CP and SOB. He has had a worsening of his chronic cough also but no sputum production or fever. The patient states the pain is sometimes sharp and sometimes aching. It will last 5- 10 minutes at a time and is intermittently associated with SOB and sweating. Sometimes coughing will bring on the pain and sometimes exertion. He did see his PCP today for it and was sent to the ER for evaluation. MD Complaint: Chest pain Onset/Timin -: Week(s) Pain Location: Substernal Severity scale (1-10): 5 Quality: Heaviness Other Symptoms: Other Treatments Prior to Arrival: None - Related Data Previous Rx's Medication Instructions Recorded Doxycycline Monohydrate [Mondoxyne 100 mg PO BID 7 Days #14 capsule 12/06/18 Nl] Allergies Allergy/AdvReac Type Severity Reaction Status Date / Time No Known Drug Allergies Allergy Unverified 09/17/18 13:56 Travel Screening - Travel/Exposure Within Last 30 Days Have you traveled within the last 30 days?: No - Travel/Exposure Within Last Year Have you traveled outside the [place] in the last year?: No - Additonal Travel Details Have you been exposed to anyone with a communicable illness?: No - Travel Symptoms Symptom Screening: None Review of Systems Constitutional: Denies: Chills, Fever Eyes: Denies: Eye discharge ENT: Reports: Congestion Respiratory: Reports: Cough. Denies: Dyspnea, Hemoptysis, Stridor Cardiovascular: Reports: Chest pain. Denies: Arrhythmia, Dyspnea on exertion Endocrine: Denies: Fatigue Gastrointestinal: Denies: Nausea Genitourinary: Denies: Hematuria Musculoskeletal: Denies: Arthralgia Skin: Denies: Bruising Past Medical History - SOCIAL HISTORY Smoking Status: Former smoker Alcohol Use: Rare Drug Use: Heavy Drug Use Detail:: Marijuana - RESPIRATORY Hx Respiratory Disorders: Yes Hx COPD: Yes (diagnosed 2016) Hx Pneumonia: Yes (Jun, 2016) - CARDIOVASCULAR Hx Cardio Disorders: No Hx Hypertension: Yes - NEURO Hx Neuro Disorders: No - GI Hx GI Disorders: No - Hx Genitourinary Disorders: No - ENDOCRINE Hx Endocrine Disorders: No - MUSCULOSKELETAL Hx Musculoskeletal Disorders: No - PSYCH Hx Psych Problems: No - HEMATOLOGY/ONCOLOGY Hx Hematology/Oncology Disorders: No Family Medical History Any Significant Family History?: No Hx Cancer: Father Hx Diabetes: Mother Hx Heart Disease: Mother Physical Exam - General General Appearance: Alert, Oriented x3, Cooperative, No acute distress - Head Head exam: Atraumatic, Normocephalic, Normal inspection - Eye Eye exam: Normal appearance, PERRL, EOMI - ENT Throat exam: Normal inspection. negative: Tonsillar erythema, Tonsillar exudate - Neck Neck exam: Normal inspection, Full ROM. negative: Tenderness - Respiratory Respiratory exam: Wheezes (in the lower lobes.). negative: Normal lung sounds bilaterally, Accessory muscle use, Decreased breath sounds, Rales, Respiratory distress, Rhonchi, Stridor - Cardiovascular Cardiovascular Exam: Regular rate, Normal rhythm, Normal heart sounds - GI/Abdominal GI/Abdominal exam: Soft, Normal bowel sounds. negative: Tenderness - Extremities Extremities exam: Normal inspection, Full ROM, Normal capillary refill. negative: Calf tenderness, Pedal edema, Tenderness - Neurological Neurological exam: Alert, Normal gait. negative: Abnormal gait, Motor sensory deficit - Psychiatric Psychiatric exam: negative: Anxious Course Vital Signs 12/06/18 12/06/18 14:09 14:23 Temperature 98.6 F Pulse Rate 107 H Respiratory 18 Rate Blood Pressure 150/106 Pulse Ox 95 - Reevaluation(s) Reevaluation #1: The patient is doing very well at this time and is resting comfortably. I did discuss the neg workup with the patient and the fact the chest CT was neg for PE. I then did discuss the vague complaints of CP and SOB and did recommend hospital admission. The patient understands the recommendations but is refusing to stay. I did discuss the fact that his test results are WNL's presently but s till if not evaluated properly he could go home and have an MT, stroke, become disabled and even . The patient understands and accepts the risks and will return to the ER for any worsening symptoms. 12/06/18 16:12 Reevaluation #2: I also did discuss the CT results and the need to see his PCP and to have a low dose chest CT in 6-12 months. 12/06/18 16:14 Medical Decision Making - Data Complexity MDM Data: Labs Ordered and/or Reviewed, X-Ray Ordered and/or Reviewed, EKG Ordered and/or Reviewed - Lab Data Result diagrams: 12/06/18 14:30 12/06/18 14:30 - EKG Data -: EKG Interpreted by Me EKG: No Acute Changes, Normal EKG - Radiology Data Radiology results: Report reviewed (CXR: Neg. Chest CT: Neg for PE, chronic bronchitis.) Disposition Disposition: Discharge Clinical Impression: COPD exacerbation Disposition: Against Medical Advice Condition: (2) Stable Instructions: Chest Pain (ED) Additional Instructions: Please take the Doxycyline as directed and continue your other medicines. Please see your family doctor next week for recheck and to go over the official CT report. Also see Dr. Winn in the [facility] when scheduled. Return to the ER for any worsening symptoms. Prescriptions: Doxycycline Monohydrate [Mondoxyne Nl] 100 mg PO BID 7 Days #14 capsule Referrals: [facility] [Provider Group] Forms: Patient Portal Access Time of Disposition: 16:16 Quality - Quality Measures Quality Measures: N/A - Blood Pressure Screening View Details: Yes Does Patient Have Any of the Following: Active Dx of HTN Blood Pressure Classification: Hypertensive Reading Systolic Measurement: 150 Diastolic Measurement: 106 Screening for High Blood Pressure: Patient Exclusion, Hx of HTN [G9744]
[2018-12-06 14:37] LABS: ABSOLUTE NEUTROPHIL COUNT 9.37; BASO % 0.3 % (0-6); EOS % 1.4 % (0-6); GRAN % 75.9 % (47-80); HEMATOCRIT 49.5 % (42.0-52.0); HEMOGLOBIN 16.7 gm/dl (14.0-18.0); LYMPH % 14.5 % (16-45); MEAN CELL VOLUME 87.9 fl (81-97); MEAN CORPUSCULAR HEMOGLOBIN 29.7 pg (27-33); MEAN CORPUSCULAR HGB CONC 33.7 g/dl (32-36); MEAN PLATELET VOLUME 11.5 fl (7.4-10.4); MONO % 7.9 % (0-9); PLATELET COUNT 215 K/uL (130-400); RED BLOOD COUNT 5.63 M/uL (4.40-5.70); RED CELL DISTRIBUTION WIDTH 13.5 % (11.5-14.5); WHITE BLOOD COUNT W/O DIFF 12.4 K/uL (4.2-12.2)
[2018-12-06 14:49] LABS: BLOOD UREA NITROGEN 12 mg/dL (6-20); CREATININE 0.7 mg/dL (0.7-1.2); EST GLOMERULAR FILTRATION RATE > 60 mL/min; TOTAL PROTEIN 7.3 g/dL (6.6-8.7)
[2018-12-06 14:51] LABS: GLUCOSE,RANDOM 95 mg/dL (74-109)
[2018-12-06 14:54] LABS: ALBUMIN 4.4 g/dL (4.0-5.0); ALKALINE PHOSPHATASE 122 U/L (40-129); ALT/SGPT 22 U/L (<41); AST/SGOT 22 U/L (10.0-50.0); CREATINE PHOSPHOKINASE 139 U/L (39-308); PARTIAL THROMBOPLASTIN TIME 29.4 SECONDS (24.5-39.1); PROTHROMBIN TIME (PATIENT) 9.8 SECONDS (9.5-12.1)
[2018-12-06 14:57] LABS: CKMB 5.3 ng/mL (<6.73)
[2018-12-06 14:59] LABS: ALB/GLOB RATIO 1.5 (1.1-1.8)
[2018-12-06 15:04] LABS: THYROID STIMULATING HORMONE 1.17 uIU/mL (0.270-4.20)
--- NOTE | 2018-12-07 08:37 | RADIOLOGY REPORT ---
EXAM: CHEST, TWO VIEWS HISTORY: COUGH WITH CHEST PAIN. TECHNIQUE: PA and lateral views of the chest were obtained. Comparison: 05/15/18. FINDINGS: The cardiomediastinal silhouette is normal in size. The pulmonary vasculature is not overlying congested. Artifact degrades lateral view making evaluation suboptimal. A CT of the chest has been ordered, therefore, the lateral view was not repeated. There is minimal atelectasis at the left lung base. Otherwise, no consolidation, pleural effusion, or pneumothorax is seen. IMPRESSION: NO EVIDENCE FOR PNEUMONIA OR PULMONARY EDEMA. [facility]BER: [id number] [facility]
--- NOTE | 2018-12-07 09:08 | CT ANGIOGRAM REPORT ---
EXAM: CTA OF THE CHEST WITH CONTRAST HISTORY: CHEST PAIN WITH COUGH, LEUKOCYTOSIS. TECHNIQUE: CT angiography of the chest was obtained following intravenous administration of contrast. Maximum intensity projection images are created in the coronal and sagittal reformations. Comparison: None. FINDINGS: There appears to be left ventricular hypertrophy. The heart is otherwise normal in size. The aorta is not well assessed due to timing of the contrast bolus to the pulmonary arteries. No thoracic aortic aneurysm. No filling defect is identified within the pulmonary arteries. No mediastinal or hilar adenopathy. The visualized upper abdomen is unremarkable. No destructive osseous lesion is identified. No pleural effusion or pneumothorax. There is centrilobular emphysema. There is diffuse bronchial wall thickening without significant mucous plugging. There is no consolidation or significant interstitial thickening. There are a few 4 mm nodules in the right lower lung, image 168 and 170. IMPRESSION: 1. EMPHYSEMA WITH FINDINGS OF CHRONIC BRONCHITIS. OTHERWISE, NO ACUTE INTRATHORACIC PROCESS. NO EVIDENCE FOR PULMONARY EMBOLUS. 2. A FEW 4 MM NODULES IN THE RIGHT LOWER LUNG. GIVEN THE PATIENT'S HISTORY OF SMOKING, CONSIDER FOLLOW-UP LOW DOSE CHEST CT IN TWELVE MONTHS. 3. SUSPECTED LEFT VENTRICULAR HYPERTROPHY. J[facility]BER: [id number] [facility]
== END 2018-12-06 16:27 | disposition left against medical advice (07) ==
LOC: ER 14:08
DX: J44.1 Chronic obstructive pulmonary disease with (acute) exacerbation (principal); R07.2 Precordial pain; R06.02 Shortness of breath; R20.2 Paresthesia of skin; R05 Cough; H53.8 Other visual disturbances; I10 Essential (primary) hypertension; Z87.891 Personal history of nicotine dependence
CPT/HCPCS: 99285 ×2; 82550; 85025; 85730; 85610; 82553; 80053; 84443; 84484; 85379; 71046; 71275; 93005; 93010; Q9967

== ENCOUNTER 2018-12-07 10:49 | Observation (INO) | payer MEDICAID ==
[2018-12-07] MEDS ORDERED: ALBUTEROL SULFATE (0.083%) 2.5 MG/3 ML NEB INH ONE (11:10)
[2018-12-07] MEDS ORDERED: METHYLPREDNISOLONE PF 125MG/VIAL IVP ONE (11:10)
[2018-12-07] MEDS ORDERED: IPRATROPIUM/ALBUTEROL (0.5MG/3MG) NEB INH ONE (11:10)
--- NOTE | 2018-12-07 11:11 | Emergency Department Record ---
History of Present Illness - General Chief complaint: Pain Stated complaint: CHEST PAIN Time Seen by Provider: 12/07/18 10:57 Source: Patient Mode of Arrival: Ambulatory Limitations: No limitations - History of Present Illness Initial comments: The patient is here due to a 2 week hx of CARIN and cough with CP now ONLY with coughing. He does have a hx of COPD and is having more coughing and SOB now. The patient was here yesterday for similar issues and had a neg workup including a chest CT. Today he just feels that he is unable to breath normally. There is no pain or discomfort with exertion or rest but ONLY when coughing. Complaint: Other Onset/Timin -: Week(s) - Related Data Previous Rx's Medication Instructions Recorded Doxycycline Monohydrate [Mondoxyne 100 mg PO BID 7 Days #14 capsule 12/06/18 Nl] Allergies Allergy/AdvReac Type Severity Reaction Status Date / Time No Known Drug Allergies Allergy Unverified 09/17/18 13:56 Travel Screening - Travel/Exposure Within Last 30 Days Have you traveled within the last 30 days?: No - Travel/Exposure Within Last Year Have you traveled outside the [place] in the last year?: No - Additonal Travel Details Have you been exposed to anyone with a communicable illness?: No - Travel Symptoms Symptom Screening: None Review of Systems Constitutional: Denies: Chills, Fever Eyes: Denies: Eye discharge ENT: Reports: Congestion Respiratory: Reports: Cough, Dyspnea. Denies: Hemoptysis Cardiovascular: Denies: Arrhythmia, Chest pain Endocrine: Denies: Fatigue Gastrointestinal: Denies: Nausea Genitourinary: Denies: Dysuria Musculoskeletal: Denies: Arthralgia Neurological: Denies: Abnormal gait Past Medical History - SOCIAL HISTORY Smoking Status: Former smoker - RESPIRATORY Hx Respiratory Disorders: Yes Hx COPD: Yes (diagnosed 2016) Hx Pneumonia: Yes (Jun, 2016) - CARDIOVASCULAR Hx Cardio Disorders: No Hx Hypertension: Yes - NEURO Hx Neuro Disorders: No - GI Hx GI Disorders: No - Hx Genitourinary Disorders: No - ENDOCRINE Hx Endocrine Disorders: No - MUSCULOSKELETAL Hx Musculoskeletal Disorders: No - PSYCH Hx Psych Problems: No - HEMATOLOGY/ONCOLOGY Hx Hematology/Oncology Disorders: No Family Medical History Any Significant Family History?: No Hx Cancer: Father Hx Diabetes: Mother Hx Heart Disease: Mother Physical Exam - General General Appearance: Alert, Oriented x3, Cooperative, No acute distress - Head Head exam: Atraumatic, Normocephalic, Normal inspection - Eye Eye exam: Normal appearance, PERRL - ENT Throat exam: Normal inspection. negative: Tonsillar erythema, Tonsillar exudate - Neck Neck exam: Normal inspection, Full ROM. negative: Tenderness - Respiratory Respiratory exam: Decreased breath sounds, Wheezes (in the lower lobes.). negative: Normal lung sounds bilaterally, Rales - Cardiovascular Cardiovascular Exam: Regular rate, Normal rhythm, Normal heart sounds. negative: Diastolic murmur, Systolic murmur - GI/Abdominal GI/Abdominal exam: Soft, Normal bowel sounds. negative: Tenderness - Extremities Extremities exam: Normal inspection, Full ROM, Normal capillary refill. negative: Tenderness - Back Back exam: Denies: Normal inspection - Neurological Neurological exam: Alert, Normal gait. negative: Abnormal gait, Motor sensory deficit - Skin Skin exam: negative: Rash Course Vital Signs 12/07/18 12/07/18 10:52 11:07 Temperature 97.5 F L Pulse Rate 118 H Respiratory 18 Rate Blood Pressure 157/123 Pulse Ox 94 L - Reevaluation(s) Reevaluation #1: The patient is doing better at this time. His O2 sats are running low at times but his aeration is improving. On exam the lower lobe wheezes are improving. I did discuss the need to stay overnight in the hospital for his COPD exacerbation and the patient does agree. I then did discuss the case with Pilar ([employer]) and she does accept the admission for Dr. Castañeda. 12/07/18 11:52 Medical Decision Making - Data Complexity MDM Data: Labs Ordered and/or Reviewed, EKG Ordered and/or Reviewed - Lab Data Result diagrams: 12/07/18 11:17 12/07/18 11:17 - EKG Data -: EKG Interpreted by Me EKG: No Acute Changes, Unchanged From Previous Disposition Disposition: Admit Clinical Impression: COPD exacerbation Disposition: Still a Patient at [facility] Decision to Admit: Admit from ER Decision to Admit Date: 12/07/18 Decision to Admit Time: 11:54 Accepting Physician: Garry Time Discussed w/Accepting Physician: 11:54 Condition: (2) Stable Forms: Patient Portal Access Time of Disposition: 11:54 Quality - Quality Measures Quality Measures: N/A - Blood Pressure Screening View Details: Yes Does Patient Have Any of the Following: Active Dx of HTN Blood Pressure Classification: Hypertensive Reading Systolic Measurement: 157 Diastolic Measurement: 123 Screening for High Blood Pressure: Patient Exclusion, Hx of HTN [G9744]
[2018-12-07 11:23] LABS: ABSOLUTE NEUTROPHIL COUNT 9.31; BASO % 0.3 % (0-6); GRAN % 78.9 % (47-80); HEMATOCRIT 51.5 % (42.0-52.0); HEMOGLOBIN 17.3 gm/dl (14.0-18.0); LYMPH % 13.8 % (16-45); MEAN CELL VOLUME 88.3 fl (81-97); MEAN CORPUSCULAR HGB CONC 33.6 g/dl (32-36); MEAN PLATELET VOLUME 11.5 fl (7.4-10.4); PLATELET COUNT 218 K/uL (130-400); RED BLOOD COUNT 5.83 M/uL (4.40-5.70); RED CELL DISTRIBUTION WIDTH 13.9 % (11.5-14.5); WHITE BLOOD COUNT W/O DIFF 11.8 K/uL (4.2-12.2)
[2018-12-07 11:25] LABS: MEAN CORPUSCULAR HEMOGLOBIN 29.6 pg (27-33)
[2018-12-07] MEDS ORDERED: MAGNESIUM SULFATE 16 MEQ in 0.9 % SODIUM CHLORIDE 100ML 100 ML IV ONE (11:34)
[2018-12-07 11:35] LABS: BLOOD UREA NITROGEN 11 mg/dL (6-20); CREATININE 0.8 mg/dL (0.7-1.2); EST GLOMERULAR FILTRATION RATE > 60 mL/min
[2018-12-07 11:36] LABS: TOTAL PROTEIN 7.5 g/dL (6.6-8.7)
[2018-12-07 11:38] LABS: GLUCOSE,RANDOM 134 mg/dL (74-109)
[2018-12-07 11:40] LABS: ALB/GLOB RATIO 1.6 (1.1-1.8); ALBUMIN 4.6 g/dL (4.0-5.0); ALT/SGPT 27 U/L (<41); AST/SGOT 26 U/L (10.0-50.0)
[2018-12-07 11:41] LABS: ALKALINE PHOSPHATASE 127 U/L (40-129)
--- NOTE | 2018-12-07 12:35 | History & Physical ---
History of Present Illness - Date of Service Date of Service for History & Physical: 12/08/18 - History of Present Illness Admitting Diagnosis: COPD Exacerbation History of Present Illness: 53 year old male patient presented to ED for further evaluation of shortness of breath, coughing, and chest pain x 2-3 weeks. Patient was seen in ED yesterday as well for similar symptoms, and had a negative workup. Troponin negative, CXR negative of acute process, CTA negative for PE. Left AMA with Doxycycline BID. Patient notes continued shortness of breath, which worsens with exertion. Notes a non-productive cough, chest pain only on coughing. Past medical history includes COPD (nocturnal home O2), HTN, ex-smoker (quit 4 years ago, 1-2ppd x 35 years) PCP: Pilar Singh NP ED Course: VS: Temp 97.5, HR 118, RR 18, BP 157/123, Pulse ox 94% RA Troponin <0.01, CBC, CMP unremarkable CTA: Emphysema with chronic bronchitis, no acute process. 4mm nodules in RLL, repeat low-dose chest CT in 12 months. CXR: no acute process 12/07/18: Patient A&O x 4, resting comfortably in bed. No acute distress, mild conversational dyspnea noted. Travel Screening - Travel/Exposure Within Last 30 Days Have you traveled within the last 30 days?: No - Travel/Exposure Within Last Year Have you traveled outside the [place] in the last year?: No - Additonal Travel Details Have you been exposed to anyone with a communicable illness?: No - Travel Symptoms Symptom Screening: None Review of Systems Reviewed: No additional complaints except as noted below Constitutional: Denies: Chills, Fever Eyes: Denies: Eye discharge ENT: Reports: Congestion Respiratory: Reports: Cough, Dyspnea. Denies: Hemoptysis Cardiovascular: Denies: Arrhythmia, Chest pain Endocrine: Denies: Fatigue Gastrointestinal: Denies: Nausea Genitourinary: Denies: Dysuria Musculoskeletal: Denies: Arthralgia Neurological: Denies: Abnormal gait Past Medical History - SOCIAL HISTORY Smoking Status: Former smoker - RESPIRATORY Hx Respiratory Disorders: Yes Hx COPD: Yes (diagnosed 2016) Hx Pneumonia: Yes (Jun, 2016) - CARDIOVASCULAR Hx Cardio Disorders: No Hx Hypertension: Yes - NEURO Hx Neuro Disorders: No - GI Hx GI Disorders: No - Hx Genitourinary Disorders: No - ENDOCRINE Hx Endocrine Disorders: No - MUSCULOSKELETAL Hx Musculoskeletal Disorders: No - PSYCH Hx Psych Problems: No - HEMATOLOGY/ONCOLOGY Hx Hematology/Oncology Disorders: No Family Medical History Any Significant Family History?: No Hx Cancer: Father Hx Diabetes: Mother Hx Heart Disease: Mother H&P Meds/Allergies - Allergies Allergies: Allergies Allergy/AdvReac Type Severity Reaction Status Date / Time No Known Drug Allergies Allergy Unverified 09/17/18 13:56 - Home Medications Home Medications Medication Instructions Recorded Confirmed Last Taken Fluticasone/Vilanterol 100/25 1 puff INH DAILY 12/07/18 12/07/18 Unknown [Breo Ellipta 100-25 Mcg INH] Hydrochlorothiazide [Hctz] 25 mg PO DAILY 12/07/18 12/07/18 Unknown Montelukast Sodium 10 mg PO QHS 12/07/18 12/07/18 Unknown - Active Medications Active Medications: Current Medications Magnesium Sulfate 16 meq/ (Sodium Chloride) 104 mls @ 100 mls/hr IV NOW ONE Stop: 12/07/18 12:36 Last Admin: 12/07/18 11:54 Dose: 100 mls/hr Documented by: Physical Exam - Vital Signs Vital Signs: Vital Signs - Last 24 Hrs Temp Pulse Pulse Resp BP BP Pulse Ox 12/07/18 11:55 107 H 16 127/95 92 L 12/07/18 11:15 109 H 16 98 12/07/18 11:07 97.5 F L 12/07/18 10:52 118 H 18 157/123 94 L - General General Appearance: Alert, Oriented x3, Cooperative, No acute distress Limitations: No limitations - Head Head exam: Atraumatic, Normocephalic, Normal inspection - Eye Eye exam: Normal appearance, PERRL - ENT ENT exam: Normal exam, Mucous membranes moist, Normal external ear exam Throat exam: Normal inspection. negative: Tonsillar erythema, Tonsillar exudate - Neck Neck exam: Normal inspection, Full ROM. negative: Tenderness - Respiratory Respiratory exam: Decreased breath sounds, Wheezes (in the lower lobes.). negative: Normal lung sounds bilaterally, Rales - Cardiovascular Cardiovascular Exam: Regular rate, Normal rhythm, Normal heart sounds. negative: Diastolic murmur, Systolic murmur Peripheral Pulses: 2+: Radial (R), Radial (L), Dorsalis Pedis (R), Dorsalis Pedis (L) - GI/Abdominal GI/Abdominal exam: Soft, Normal bowel sounds. negative: Tenderness - Rectal Rectal exam: Deferred - exam: Deferred - Extremities Extremities exam: Normal inspection, Full ROM, Normal capillary refill. negative: Tenderness - Back Back exam: Denies: Normal inspection - Neurological Neurological exam: Alert, Normal gait, Oriented X3. negative: Abnormal gait, Motor sensory deficit - Psychiatric Psychiatric exam: Normal affect, Normal mood - Skin Skin exam: Dry, Normal color, Warm. negative: Rash Results - Labs Result Diagrams: 12/08/18 06:05 12/08/18 06:05 Labs Last 24 Hours: Laboratory Results - last 24 hr 12/07/18 12/07/18 11:17 11:17 WBC 11.8 RBC 5.83 H Hgb 17.3 Hct 51.5 MCV 88.3 MCH 29.6 MCHC 33.6 RDW 13.9 Plt Count 218 MPV 11.5 H Gran % 78.9 Lymphocytes % 13.8 L Monocytes % 5.0 Eosinophils % 2.0 Basophils % 0.3 Absolute Neutrophils 9.31 Sodium 139 Potassium 4.2 Chloride 99 Carbon Dioxide 28.0 Anion Gap 12.0 BUN 11 Creatinine 0.8 Estimated GFR > 60 Random Glucose 134 H Calcium 9.6 AST 26 ALT 27 Alkaline Phosphatase 127 Troponin T < 0.010 Total Protein 7.5 Albumin 4.6 Globulin 2.9 Albumin/Globulin Ratio 1.6 - Imaging and Cardiology Chest x-ray Status: Report reviewed CT scan - chest Status: Report reviewed VTE H&P Assessment - Risk for VTE Risk for VTE: Yes Risk Level: Moderate Risk Assessment Date: 12/07/18 Risk Assessment Time: 12:46 VTE Orders Placed or Will Be Placed: Yes Plan - Detailed Diagnosis and Plan (1) COPD exacerbation Current Visit: Yes Status: Acute Base Code: J44.1 - CHRONIC OBSTRUCTIVE PULMONARY DISEASE W (ACUTE) EXACERBATION Comment: 12/07/18: - Failed outpt treatment, seen in ED 12/06/18 and 12/07/18 for increasing SOB and CP - Given Doxycycline 100mg BID 12/06/18 and Solumedrol IVP - CXR 12/06/18: no acute cardiopulmonary process - CTA 12/06/18: negative for PE - CBC, CMP, Troponin, BNP unremarkable - Supplemental oxygen to keep pulse ox 90-92% - Continue Solumedrol 60mg daily, Doxycycline 100mg BID, Duoneb scheduled q4h - library monitor - VS q4h (2) Chest pain Current Visit: No Status: Acute Qualifiers: Chest pain type: unspecified Qualified Code(s): R07.9 - Chest pain, unspecified Base Code: R07.9 - CHEST PAIN, UNSPECIFIED Comment: 12/07/18: - generalized CP present when coughing - Troponin <0.01 x 3 - EKG: Sinus tachycardia - CXR: no acute cardiopulmonary process - library monitor: no abnormalities noted - Cardiology consult placed, to be completed outpatient (3) Hypertension Current Visit: No Status: Acute Qualifiers: Hypertension type: essential hypertension Qualified Code(s): I10 - Essential (primary) hypertension Base Code: I10 - ESSENTIAL (PRIMARY) HYPERTENSION Comment: 12/07/18: - BP not at goal <140/90 - Current medication regimen: Losartan 50mg BID, HCTZ 25mg daily, Amlodipine 2.5mg daily - Increase HCTZ to 50mg daily, DC Amlodipine, start Coreg 6.25mg BID, Hydralazine 10mg PO TID prn SB>150 - VS q4h (4) DVT prophylaxis Current Visit: No Status: Acute Base Code: [id number] - Comment: 12/07/18: - Moderate risk due to age, comorbidities, and hospitalization - Lovenox 40mg SQ while hospitalized (5) Full code status Current Visit: No Status: Acute Base Code: Z78.9 - OTHER SPECIFIED HEALTH STATUS Comment: 12/07/18: - Full code this admission
[2018-12-07] MEDS ORDERED: ACETAMINOPHEN 325 MG TAB PO PRN (12:49)
[2018-12-07] MEDS ORDERED: ALBUTEROL SULFATE (0.083%) 2.5 MG/3 ML NEB INH PRN (13:00)
[2018-12-07] MEDS: IPRATROPIUM/ALBUTEROL (0.5MG/3MG) NEB INH SCH ×3 (14:14→22:47)
[2018-12-07] MEDS ORDERED: HYDRALAZINE HCL 10 MG TABLET PO ONE (17:56)
[2018-12-07] MEDS ORDERED: HYDRALAZINE HCL 10 MG TABLET PO PRN (19:08)
[2018-12-07] MEDS: DOXYCYCLINE HYCLATE 100 MG CAPSULE PO SCH (21:15)
[2018-12-07] MEDS: LOSARTAN POTASSIUM 25 MG TABLET PO SCH (21:15)
[2018-12-07] MEDS ORDERED: MONTELUKAST SODIUM 10MG TABLET PO SCH (22:00)
[2018-12-07] MEDS ORDERED: LORATADINE 10 MG TABLET PO SCH (22:00)
[2018-12-08] MEDS: IPRATROPIUM/ALBUTEROL (0.5MG/3MG) NEB INH SCH ×2 (06:03→10:53)
[2018-12-08 06:18] LABS: ABSOLUTE NEUTROPHIL COUNT 23.08; HEMATOCRIT 47.9 % (42.0-52.0); HEMOGLOBIN 16.2 gm/dl (14.0-18.0); LYMPH % 4.5 % (16-45); MEAN CELL VOLUME 88.5 fl (81-97); MEAN CORPUSCULAR HEMOGLOBIN 29.9 pg (27-33); MEAN CORPUSCULAR HGB CONC 33.8 g/dl (32-36); MEAN PLATELET VOLUME 11.3 fl (7.4-10.4); MONO % 4.9 % (0-9); PLATELET COUNT 218 K/uL (130-400); RED BLOOD COUNT 5.41 M/uL (4.40-5.70); RED CELL DISTRIBUTION WIDTH 13.6 % (11.5-14.5)
[2018-12-08 06:27] LABS: BLOOD UREA NITROGEN 13 mg/dL (6-20); CREATININE 0.7 mg/dL (0.7-1.2); EST GLOMERULAR FILTRATION RATE > 60 mL/min; GLUCOSE,RANDOM 121 mg/dL (74-109)
[2018-12-08 06:28] LABS: WHITE BLOOD COUNT W/O DIFF 25.5 K/uL (4.2-12.2)
[2018-12-08 06:46] LABS: ANISOCYTOSIS 1+; PLATELET ESTIMATE NORMAL (NORMAL)
[2018-12-08] MEDS ORDERED: ALBUTEROL (0.5% CONCENTRATED) 2.5 MG/0.5 ML VIAL.NEB INH ONE (06:51)
[2018-12-08] MEDS: DOXYCYCLINE HYCLATE 100 MG CAPSULE PO SCH (09:14)
[2018-12-08] MEDS: LOSARTAN POTASSIUM 25 MG TABLET PO SCH (09:15)
[2018-12-08] MEDS ORDERED: BREO (FLUTICASONE/VILANTEROL) 100MCG/25MCG INHALER INH SCH (10:00)
[2018-12-08] MEDS ORDERED: AMLODIPINE BESYLATE 5MG TAB PO SCH ×2 (10:00)
[2018-12-08] MEDS ORDERED: METHYLPREDNISOLONE PF 125MG/VIAL IVP SCH (10:00)
[2018-12-08] MEDS ORDERED: CARVEDILOL 3.125 MG TABLET PO SCH (10:00)
[2018-12-08] MEDS ORDERED: ALBUTEROL (0.5% CONCENTRATED) 2.5 MG/0.5 ML VIAL.NEB INH SCH (10:00)
[2018-12-08] MEDS ORDERED: ENOXAPARIN 40 MG/0.4 ML SYR SQ SCH (10:00)
[2018-12-08] MEDS ORDERED: HYDROCHLOROTHIAZIDE 25 MG TABLET PO SCH ×2 (10:00)
--- NOTE | 2018-12-08 12:13 | Discharge Summary ---
Providers Discharge Summary Date: 12/08/18 Date of admission: 12/07/18 12:17 Expected Date of Discharge: 12/08/18 Attending physician: BEV KNOTT Primary care physician: AMEE Mancilla Physical Exam - Vital Signs Vital Signs: Vital Signs - Last 24 Hrs Temp Pulse Pulse Pulse Resp BP BP 12/08/18 11:22 98.1 F 105 H 18 157/88 12/08/18 10:54 110 H 18 12/08/18 09:00 119 H 18 12/08/18 07:20 98.7 F 103 H 18 154/107 12/08/18 06:03 104 H 16 12/08/18 04:00 98.3 F 92 H 18 141/88 12/07/18 23:38 98.6 F 117 H 18 133/88 12/07/18 22:47 109 H 16 12/07/18 21:00 18 12/07/18 20:27 111 H 16 12/07/18 19:35 97.7 F 111 H 18 133/106 142/101 12/07/18 17:00 186/120 12/07/18 16:00 97.2 F L 92 H 16 156/110 12/07/18 13:05 97.1 F L 110 H 18 146/97 BP Pulse Ox 12/08/18 11:22 96 12/08/18 10:54 96 12/08/18 09:00 12/08/18 07:20 96 12/08/18 06:03 95 12/08/18 04:00 97 12/07/18 23:38 91 L 12/07/18 22:47 95 12/07/18 21:00 12/07/18 20:27 95 12/07/18 19:35 133/106 99 12/07/18 17:00 12/07/18 16:00 98 12/07/18 13:05 94 L - General General Appearance: Alert, Oriented x3, Cooperative, No acute distress Limitations: No limitations - Head Head exam: Atraumatic, Normocephalic, Normal inspection - Eye Eye exam: Normal appearance, PERRL - ENT ENT exam: Normal exam, Mucous membranes moist, Normal external ear exam Throat exam: Normal inspection. negative: Tonsillar erythema, Tonsillar exudate - Neck Neck exam: Normal inspection, Full ROM. negative: Tenderness - Respiratory Respiratory exam: Decreased breath sounds, Wheezes (scattered throughout). negative: Normal lung sounds bilaterally, Rales - Cardiovascular Cardiovascular Exam: Regular rate, Normal rhythm, Normal heart sounds. negative: Diastolic murmur, Systolic murmur Peripheral Pulses: 2+: Radial (R), Radial (L), Dorsalis Pedis (R), Dorsalis Pedis (L) - GI/Abdominal GI/Abdominal exam: Soft, Normal bowel sounds. negative: Tenderness - Rectal Rectal exam: Deferred - exam: Deferred - Extremities Extremities exam: Normal inspection, Full ROM, Normal capillary refill. negative: Tenderness - Back Back exam: Denies: Normal inspection - Neurological Neurological exam: Alert, Normal gait, Oriented X3. negative: Abnormal gait, Motor sensory deficit - Psychiatric Psychiatric exam: Normal affect, Normal mood - Skin Skin exam: Dry, Normal color, Warm. negative: Rash Hospitalization - Hospitalization Admission Diagnosis: COPD Exacerbation - Problem List/Discharge Diagnosis (1) COPD exacerbation Current Visit: Yes Status: Acute Base Code: J44.1 - CHRONIC OBSTRUCTIVE PULMONARY DISEASE W (ACUTE) EXACERBATION Comment: 12/08/18: - Failed outpt treatment, seen in ED 12/06/18 and 12/07/18 for increasing SOB and CP - Given Doxycycline 100mg BID 12/06/18 and Solumedrol IVP - CXR 12/06/18: no acute cardiopulmonary process, repeat CXR 12/08/18: no acute process, COPD - CTA 12/06/18: negative for PE - CBC, CMP, Troponin, BNP unremarkable in ED - WBC increased to 25, from 11.8. Likely due to 2 doses of Solumedrol 125mg, afebrile, no increase in resp distress, pulse ox 93% RA - Supplemental oxygen to keep pulse ox 90-92% - Continue Solumedrol 60mg daily, Prednisone 40mg PO x 5 days on DC - Doxycycline 100mg BID - Duoneb scheduled q4h, adding Budesonide nmt scheduled q6h, as patient reports not using powder steroids at home due to not liking the taste - Referral to [facility] Pulmonlogy - Follow-up with PCP in 10-14 days (2) Chest pain Current Visit: No Status: Acute Discharge Diagnosis: Chest pain type: unspecified Qualified Code(s): R07.9 - Chest pain, unspecified Base Code: R07.9 - CHEST PAIN, UNSPECIFIED Comment: 12/08/18: - generalized CP present when coughing, asymptomatic at rest - Troponin <0.01 x 3 - EKG: Sinus tachycardia - CXR: no acute cardiopulmonary process - monitor and storage bin tender: no abnormalities noted - Cardiology consult placed, to be completed outpatient (3) Hypertension Current Visit: No Status: Acute Discharge Diagnosis: Hypertension type: essential hypertension Qualified Code(s): I10 - Essential (primary) hypertension Base Code: I10 - ESSENTIAL (PRIMARY) HYPERTENSION Comment: 12/08/18: - BP improved with medication changes - Current medication regimen: Losartan 50mg BID, HCTZ 25mg daily, Amlodipine 2.5mg daily - Increase HCTZ to 50mg daily, DC Amlodipine, start Coreg 6.25mg BID, continue on discharge - Further changes to be made by PCP (4) DVT prophylaxis Current Visit: No Status: Acute Base Code: [id number] - Comment: 12/08/18: - Moderate risk due to age, comorbidities, and hospitalization - Lovenox 40mg SQ while hospitalized (5) Full code status Current Visit: No Status: Acute Base Code: Z78.9 - OTHER SPECIFIED HEALTH STATUS Comment: 12/08/18: - Full code this admission - Hospitalization Course Disposition: Home, Self-Care Hospital Course: 53 year old male patient presented to ED for further evaluation of shortness of breath, coughing, and chest pain x 2-3 weeks. Patient was seen in ED yesterday as well for similar symptoms, and had a negative workup. Troponin negative, CXR negative of acute process, CTA negative for PE. Left AMA with Doxycycline BID. Patient notes continued shortness of breath, which worsens with exertion. Notes a non-productive cough, chest pain only on coughing. Past medical history includes COPD (nocturnal home O2), HTN, ex-smoker (quit 4 years ago, 1-2ppd x 35 years) PCP: Pilar Singh NP ED Course: VS: Temp 97.5, HR 118, RR 18, BP 157/123, Pulse ox 94% RA Troponin <0.01, CBC, CMP unremarkable CTA: Emphysema with chronic bronchitis, no acute process. 4mm nodules in RLL, repeat low-dose chest CT in 12 months. CXR: no acute process 12/07/18: Patient A&O x 4, resting comfortably in bed. No acute distress, mild conversational dyspnea noted. 12/08/18: Patient A&O x 4, sitting comfortably on edge of bed. No respiratory distress noted, patient on room air. Pulse ox remains 93% on RA, patient notes improvement in breathing. HTN medications adjusted, patient to follow-up with pulmonlogy and cardiology outpatient. Follow-up with PCP in 10-14 days. Procedures: Imaging and X-Rays 12/08/18 06:48 CHEST 2 VIEWS [RAD] Stat Cardiology Procedures 12/07/18 11:10 Internet Marketing Coordinator NOW EKG NOW 12/07/18 12:49 Internet Marketing Coordinator .Continuous Abnormal Labs: Abnormal Lab Results 12/07/18 12/07/18 12/08/18 Range/Units 11:17 11:17 06:05 WBC 25.5 H* (4.2-12.2) K/uL RBC 5.83 H (4.40-5.70) M/uL MPV 11.5 H 11.3 H (7.4-10.4) fl Neutrophils % 89.0 H (47-80) % Lymphocytes % 13.8 L 4.5 L (16-45) % Lymphocytes 6.0 L (16-45) % Potassium (3.4-4.5) mmol/L Random Glucose 134 H (74-109) mg/dL 12/08/18 Range/Units 06:05 WBC (4.2-12.2) K/uL RBC (4.40-5.70) M/uL MPV (7.4-10.4) fl Neutrophils % (47-80) % Lymphocytes % (16-45) % Lymphocytes (16-45) % Potassium 4.8 H (3.4-4.5) mmol/L Random Glucose 121 H (74-109) mg/dL Condition at Discharge: (2) Stable Discharge Medications - Discharge Medications Prescriptions: Budesonide 0.5 mg IH BID #60 ampul.neb Carvedilol [Coreg] 6.25 mg PO BID #60 tablet Hydrochlorothiazide [Hctz] 50 mg PO DAILY #30 tablet Prednisone [Prednisone 20Mg] 40 mg PO DAILY #10 tab Home Medications: Ambulatory Orders Montelukast Sodium 10 mg PO QHS 12/07/18 [Last Taken Unknown] Budesonide 0.5 mg IH BID #60 ampul.neb 12/08/18 [Last Taken Unknown] Carvedilol [Coreg] 6.25 mg PO BID #60 tablet 12/08/18 [Last Taken Unknown] Hydrochlorothiazide [Hctz] 50 mg PO DAILY #30 tablet 12/08/18 [Last Taken Unknown] Prednisone [Prednisone 20Mg] 40 mg PO DAILY #10 tab 12/08/18 [Last Taken Unknown] Discharge Plan - Discharge Instructions Activity at Discharge: Increase Activity as Tolerated Diet at Discharge: Advance to Usual Diet Additional Instructions: - Complete the antibiotics that were prescribed in the ED (Doxycycline) - Start taking the steroids tomorrow, 12/09/18 - Blood pressure medication: Hydrochlorothiazide increased to 50mg daily Continue Losartan 50mg twice a day START: Coreg 6.25 twice a day STOP: Amlodipine - Breathing treatments: Duoneb 4 times a day Budesonide, a new one, use twice a day Use your rescue inhaler only as needed - The specialty center will call you to schedule appointments with the wire temperer and car dumper at [place] - Call the Family Practice office ([phone]) to schedule a follow-up appt for the week of Dec 17 Quality Measures - Quality Measures Quality Measures: Documentation of Current Medications in Medical Record, Screening for High Blood Pressure and F/U Documented - Current Medications Quality Measure: Measure #130: Documentation of Current Medications Documentation of Current Medications: <Current Medications Documented/Reviewed> [[id number]] - Blood Pressure Screening Quality Measure: Screening for High Blood Pressure and Follow-Up Documented Does Patient Have Any of the Following: Active Dx of HTN Blood Pressure Classification: Hypertensive Reading Systolic Measurement: 157 Diastolic Measurement: 123 Screening for High Blood Pressure: Patient Exclusion, Hx of HTN [G9744] - Elder Abuse Suspicion Index EASI Reference Information: Bibi KIRK, Gary C, Jennie D, Ritika M.Development and validation of a tool to assist physicians identification of elder abuse: The Elder Abuse Suspicion Index (EASI ). Journal of Elder Abuse and Neglect, 2008; 20 (3): 276-300.
--- NOTE | 2018-12-10 05:51 | RADIOLOGY REPORT ---
EXAM: CHEST 2 VIEWS HISTORY: CHEST PAIN. TECHNIQUE: Two views of the chest were obtained. FINDINGS: The lungs are hyperinflated. There is no infiltrate or effusion. The heart and pulmonary vessels are normal. IMPRESSION: COPD, OTHERWISE NEGATIVE. JOB NUMBER: [id number] MTDD
== END 2018-12-08 12:50 | disposition home or self-care (01) ==
LOC: ER 10:49 → MEDSURG 12:17
PROVIDERS: ADMIT Internal Medicine; ATTEND Internal Medicine
DX: J44.1 Chronic obstructive pulmonary disease with (acute) exacerbation (principal); R05 Cough; I10 Essential (primary) hypertension; Z87.891 Personal history of nicotine dependence
CPT/HCPCS: 71046; 80048; 80053; 84484; 85025; 85027; 93005; 93010; 94640; 94760; 94761; 96374; 96375; 99220; 99285; J2930; J7613

== ENCOUNTER 2019-02-20 12:27 | Emergency (ER) | payer MEDICAID ==
[2019-02-20] MEDS ORDERED: IPRATROPIUM/ALBUTEROL (0.5MG/3MG) NEB INH ONE (12:47)
[2019-02-20] MEDS ORDERED: METHYLPREDNISOLONE PF 125MG/VIAL IVP ONE (13:03)
--- NOTE | 2019-02-20 13:07 | Emergency Department Record ---
History of Present Illness - General Chief Complaint: Difficulty Breathing Stated Complaint: CARIN Time Seen by Provider: 02/20/19 12:49 Source: Patient Mode of Arrival: Ambulatory Limitations: No limitations - History of Present Illness Initial Comments: pt has had a schwab for a week and now his lungs are acting up. hes been increasingly sob, dizziness Complaint: Cough, Shortness of breath Onset/Timin -: Days(s) Severity: Moderate Severity scale (1-10): 8 Quality: Aching, Dull Known History Of: COPD Context: Recent URI Associated Symptoms: Cough - Related Data Home Oxygen Therapy: Yes (night) Home Oxygen Amount: 2 Liters Previous Rx's Medication Instructions Recorded Albuterol Sulfate 0.083% [Neb] 3 ml NEB .EVERY 4-6 HOURS PRN #1 ml 01/28/19 [Albuterol Sulfate] Prednisone [Prednisone 20Mg] 40 mg PO DAILY #8 tab 01/28/19 Allergies Allergy/AdvReac Type Severity Reaction Status Date / Time No Known Drug Allergies Allergy Verified 02/20/19 12:36 Travel Screening - Travel/Exposure Within Last 30 Days Have you traveled within the last 30 days?: No - Travel/Exposure Within Last Year Have you traveled outside the [place] in the last year?: No - Additonal Travel Details Have you been exposed to anyone with a communicable illness?: No - Travel Symptoms Symptom Screening: None Past Medical History - SOCIAL HISTORY Smoking Status: Former smoker Alcohol Use: None Drug Use: Occasional Drug Use Detail:: Marijuana - RESPIRATORY Hx Respiratory Disorders: Yes Hx COPD: Yes (diagnosed 2016) Hx Pneumonia: Yes (Jun, 2016) Comment:: home nebulizer - CARDIOVASCULAR Hx Cardio Disorders: Yes Hx Hypertension: Yes - NEURO Hx Neuro Disorders: No - GI Hx GI Disorders: No - Hx Genitourinary Disorders: No - ENDOCRINE Hx Endocrine Disorders: No - MUSCULOSKELETAL Hx Musculoskeletal Disorders: No - PSYCH Hx Psych Problems: No - HEMATOLOGY/ONCOLOGY Hx Hematology/Oncology Disorders: No Family Medical History Any Significant Family History?: Yes Hx Cancer: Father Hx Diabetes: Mother Hx Heart Disease: Mother Course Vital Signs 02/20/19 02/20/19 12:31 12:49 Temperature 98.6 F Pulse Rate 92 H 109 H Respiratory 24 18 Rate Blood Pressure 148/112 Pulse Ox 95 - Reevaluation(s) Reevaluation #1: 02/20/19 14:55 pt feels better Reevaluation #2: 02/20/19 15:22 pt feels better Reevaluation #3: 02/20/19 15:26 pt just finished a course of steroids Medical Decision Making - Lab Data Result diagrams: 02/20/19 12:45 02/20/19 12:45 Disposition Disposition: Discharge Clinical Impression: COPD with asthma Headache Qualifiers: Headache type: unspecified Headache chronicity pattern: acute headache Intracta bility: not intractable Qualified Code(s): R51 - Headache Disposition: Home, Self-Care Condition: (1) Good Instructions: COPD (Chronic Obstructive Pulmonary Disease) (ED), Asthma (ED) Additional Instructions: follow up with family doctor. return sooner if worse. Forms: Patient Portal Access Quality - Quality Measures Quality Measures: N/A - Blood Pressure Screening Does Patient Have Any of the Following: Active Dx of HTN Blood Pressure Classification: Hypertensive Reading Systolic Measurement: 148 Diastolic Measurement: 112 Screening for High Blood Pressure: Patient Exclusion, Hx of HTN [G9744]
[2019-02-20 13:20] LABS: ABSOLUTE NEUTROPHIL COUNT 8.73; BASO % 0.3 % (0-6); EOS % 0.6 % (0-6); GRAN % 79.8 % (47-80); HEMATOCRIT 49.3 % (42.0-52.0); HEMOGLOBIN 16.1 gm/dl (14.0-18.0); LYMPH % 13.1 % (16-45); MEAN CELL VOLUME 92.1 fl (81-97); MEAN CORPUSCULAR HEMOGLOBIN 30.1 pg (27-33); MEAN CORPUSCULAR HGB CONC 32.7 g/dl (32-36); MEAN PLATELET VOLUME 11.9 fl (7.4-10.4); MONO % 6.2 % (0-9); PLATELET COUNT 191 K/uL (130-400); RED BLOOD COUNT 5.35 M/uL (4.40-5.70); RED CELL DISTRIBUTION WIDTH 14.4 % (11.5-14.5); WHITE BLOOD COUNT W/O DIFF 10.9 K/uL (4.2-12.2)
[2019-02-20 13:31] LABS: BLOOD UREA NITROGEN 11 mg/dL (6-20); CREATININE 0.6 mg/dL (0.7-1.2); EST GLOMERULAR FILTRATION RATE > 60 mL/min
[2019-02-20 13:34] LABS: GLUCOSE,RANDOM 102 mg/dL (74-109)
--- NOTE | 2019-02-20 14:27 | RADIOLOGY REPORT ---
EXAMINATION: Two View Chest Radiographs EXAM DATE: 02/20/2019 1:39 PM TECHNIQUE: Frontal and lateral views INDICATION: Shortness of breath COMPARISON: January 28, 2019 ENCOUNTER: Not applicable FINDINGS: The cardiac and mediastinal silhouettes are stable. No focal airspace consolidation, pneumothorax or pleural effusion. IMPRESSION: No radiographic evidence of an acute cardiopulmonary abnormality. Dictated by: Valentin Edge on 02/20/2019 2:20 PM. .
--- NOTE | 2019-02-20 14:50 | CT SCAN REPORT ---
EXAMINATION: CT Head without IV Contrast EXAM DATE: 02/20/2019 2:35 PM TECHNIQUE: Standard protocol CT images of the head were obtained without intravenous contrast. Foley l and sagittal reconstructed images were created. INDICATION: Headache COMPARISON: CT head 05/30/2016 HAND DOMINANCE: Unknown. ENCOUNTER: Not applicable FINDINGS: 1. No intracranial mass effect, shift of midline structures, intra-axial or extra-axial hemorrhage, o r other extra-axial fluid collections. 2. Brain volume and ventricular size are appropriate for patient's stated age. No ventricular outflow obstruction. 3. Concepcion-white matter differentiation is preserved. No sulcal effacement. No suspicious areas of alter ed attenuation. 4. Midline structures and craniocervical junction are unremarkable. 5. No depressed or widely calvarial fractures. No aggressive calvarial lesions. 6. Visualized paranasal sinuses and temporal bone structures are well aerated. Unremarkable appearanc e of the orbital compartments. IMPRESSION: No acute intracranial abnormality to the limits of noncontrast CT technique. Dictated by: Wendi Uriarte MD on 02/20/2019 2:43 PM. .
[2019-02-20] MEDS ORDERED: ALBUTEROL SULFATE (0.083%) 2.5 MG/3 ML NEB INH ONE (14:54)
[2019-02-20] MEDS ORDERED: KETOROLAC 30 MG/ML VIAL IVP ONE (14:56)
== END 2019-02-20 15:32 | disposition home or self-care (01) ==
LOC: ER 12:27
DX: J44.9 Chronic obstructive pulmonary disease, unspecified (principal); J45.998 Other asthma; Z99.81 Dependence on supplemental oxygen; R51 Headache; R42 Dizziness and giddiness; R06.02 Shortness of breath; I10 Essential (primary) hypertension; Z87.891 Personal history of nicotine dependence
CPT/HCPCS: 70450; 71046; 80048; 85025; 96374; 96375; 99284; J1885; J2930; J7613

== ENCOUNTER 2019-04-10 11:46 | Emergency (ER) | payer MEDICAID ==
[2019-04-10] MEDS ORDERED: IPRATROPIUM/ALBUTEROL (0.5MG/3MG) NEB INH ONE (12:02)
[2019-04-10] MEDS ORDERED: ASPIRIN 81 MG CHEWABLE TABLET PO ONE (12:03)
[2019-04-10] MEDS ORDERED: METHYLPREDNISOLONE PF 125MG/VIAL IVP ONE (12:04)
[2019-04-10 12:15] LABS: ABSOLUTE NEUTROPHIL COUNT 7.97; HEMATOCRIT 53.1 % (42.0-52.0); HEMOGLOBIN 16.3 gm/dl (14.0-18.0); MEAN CELL VOLUME 95.5 fl (81-97); MEAN CORPUSCULAR HEMOGLOBIN 29.3 pg (27-33); MEAN CORPUSCULAR HGB CONC 30.7 g/dl (32-36); MEAN PLATELET VOLUME 11.6 fl (7.4-10.4); PLATELET COUNT 194 K/uL (130-400); RED BLOOD COUNT 5.56 M/uL (4.40-5.70); RED CELL DISTRIBUTION WIDTH 13.3 % (11.5-14.5); WHITE BLOOD COUNT W/O DIFF 9.6 K/uL (4.2-12.2)
--- NOTE | 2019-04-10 12:18 | Emergency Department Record ---
History of Present Illness - General Chief Complaint: Shortness of breath Stated Complaint: CARIN Time Seen by Provider: 04/10/19 11:59 Source: Patient, RN notes reviewed Mode of Arrival: Ambulatory - History of Present Illness Initial Comments: patient states sob which started this am and he uses home oxygen at night 2 liters per minute for his copd and he stopped smoking this year. Patient used his steroid nebulizer prior to coming to the ED and he has been coughing 4 days and congestion and has yellow sputum. No chest pain but tightness from being SOB and audible wheezing Onset/Timin -: Days(s) Improves With: Bronchodilators Known History Of: COPD Associated Symptoms: Denies other symptoms - Related Data Home Oxygen Therapy: Yes Home Oxygen Amount: 1 Liter Previous Rx's Medication Instructions Recorded Doxycycline Hyclate 100 mg PO BID #20 cap 04/10/19 Prednisone [Prednisone 10Mg] 10 mg PO ASDIR #30 tab 04/10/19 Allergies Allergy/AdvReac Type Severity Reaction Status Date / Time No Known Drug Allergies Allergy Verified 04/10/19 12:07 Travel Screening - Travel/Exposure Within Last 30 Days Have you traveled within the last 30 days?: No - Travel/Exposure Within Last Year Have you traveled outside the [place] in the last year?: No - Additonal Travel Details Have you been exposed to anyone with a communicable illness?: No - Travel Symptoms Symptom Screening: None Review of Systems Reviewed: No additional complaints except as noted below Constitutional: Reports: As per HPI. Denies: Chills, Fever, Malaise, Night sweats, Weakness, Weight change Eyes: Reports: As per HPI. Denies: Eye discharge, Eye pain, Photophobia, Vision change ENT: Reports: As per HPI. Denies: Congestion, Dental pain, Ear pain, Epistaxis, Hearing loss, Throat pain Respiratory: Reports: As per HPI, Cough, Dyspnea, Wheezes. Denies: Hemoptysis, Stridor Cardiovascular: Reports: As per HPI. Denies: Arrhythmia, Chest pain, Dyspnea on exertion, Edema, Murmurs, Orthopnea, Palpitations, Paroxysmal nocturnal dyspnea, Rheumatic Fever, Syncope Endocrine: Reports: As per HPI. Denies: Fatigue, Heat or cold intolerance, Polydipsia, Polyuria Gastrointestinal: Reports: As per HPI. Denies: Abdominal pain, Constipation, Diarrhea, Hematemesis, Hematochezia, Melena, Nausea, Vomiting Genitourinary: Reports: As per HPI. Denies: Dysuria, Frequency, Hematuria, Incontinence, Retention, Testicular pain, Testicular mass, Urgency Musculoskeletal: Reports: As per HPI. Denies: Arthralgia, Back pain, Gout, Joint swelling, Myalgia, Neck pain Skin: Reports: As per HPI. Denies: Bruising, Change in color, Change in hair/nails, Lesions, Pruritus, Rash Neurological: Reports: As per HPI. Denies: Abnormal gait, Confusion, Headache, Numbness, Paresthesias, Seizure, Tingling, Tremors, Vertigo, Weakness Psychiatric: Reports: As per HPI. Denies: Anxiety, Auditory hallucinations, Depression, Homicidal thoughts, Suicidal thoughts, Visual hallucinations Hematological/Lymphatic: Reports: As per HPI. Denies: Anemia, Blood Clots, Easy bleeding, Easy bruising, Swollen glands Past Medical History - SOCIAL HISTORY Smoking Status: Former smoker Alcohol Use: None Drug Use Detail:: Marijuana - RESPIRATORY Hx Respiratory Disorders: Yes Hx COPD: Yes (diagnosed 2016) Hx Pneumonia: Yes (Jun, 2016) Comment:: home nebulizer - CARDIOVASCULAR Hx Cardio Disorders: Yes Hx Hypertension: Yes - NEURO Hx Neuro Disorders: No - GI Hx GI Disorders: No - Hx Genitourinary Disorders: No - ENDOCRINE Hx Endocrine Disorders: No - MUSCULOSKELETAL Hx Musculoskeletal Disorders: No - PSYCH Hx Psych Problems: No - HEMATOLOGY/ONCOLOGY Hx Hematology/Oncology Disorders: No Family Medical History Any Significant Family History?: No Hx Cancer: Father Hx Diabetes: Mother Hx Heart Disease: Mother Physical Exam - General General Appearance: Alert, Oriented x3, Cooperative, Mild distress - Head Head exam: Normal inspection - Eye Eye exam: Normal appearance, PERRL Pupils: Normal accommodation - ENT ENT exam: Mucous membranes moist, Normal external ear exam, TM's normal bilaterally Ear exam: Normal external inspection. negative: External canal tenderness Nasal Exam: Normal inspection. negative: Discharge, Sinus tenderness Mouth exam: Normal external inspection, Tongue normal Teeth exam: Normal inspection. negative: Dental caries Throat exam: Tonsillar erythema. negative: Tonsillar exudate - Neck Neck exam: Normal inspection, Full ROM. negative: Tenderness - Respiratory Respiratory exam: Wheezes. negative: Respiratory distress - Cardiovascular Cardiovascular Exam: Regular rate, Normal rhythm, Normal heart sounds - GI/Abdominal GI/Abdominal exam: Soft, Normal bowel sounds. negative: Tenderness - Rectal Rectal exam: Deferred - exam: Deferred - Extremities Extremities exam: Normal inspection, Full ROM, Normal capillary refill. negative: Tenderness - Back Back exam: Reports: Normal inspection, Full ROM. Denies: Muscle spasm, Rash noted, Tenderness - Neurological Neurological exam: Alert, Normal gait, Oriented X3, Reflexes normal - Psychiatric Psychiatric exam: Normal affect, Normal mood - Skin Skin exam: Dry, Intact, Normal color, Warm Course Vital Signs 04/10/19 11:56 Temperature 97.6 F Pulse Rate 105 H Respiratory 18 Rate Blood Pressure 145/98 Pulse Ox 96 Medical Decision Making - Lab Data Result diagrams: 04/10/19 12:03 04/10/19 12:03 Disposition Clinical Impression: COPD (chronic obstructive pulmonary disease) Qualifiers: COPD type: COPD with acute exacerbation Qualified Code(s): J44.1 - Chronic obstructive pulmonary disease with (acute) exacerbation Condition: (1) Good Instructions: COPD (Chronic Obstructive Pulmonary Disease) (ED), Acute Bronchitis (ED) Additional Instructions: follow up with family Dr in one week use nebulizer four times A DAY CONTINUE TO USE HIS INHALERS Prescriptions: Doxycycline Hyclate 100 mg PO BID #20 cap Prednisone [Prednisone 10Mg] 10 mg PO ASDIR #30 tab Forms: Patient Portal Access Time of Disposition: 13:39 Quality - Quality Measures Quality Measures: N/A - Blood Pressure Screening Does Patient Have Any of the Following: No Blood Pressure Classification: Hypertensive Reading Systolic Measurement: 145 Diastolic Measurement: 98 Screening for High Blood Pressure: < Pre-Hypertensive BP, F/U Documented > [G8950] Pre-Hypertensive Follow-up Interventions: Referral to alternative/primary care provider.
[2019-04-10 12:23] LABS: BLOOD UREA NITROGEN 7 mg/dL (6-20); CREATININE 0.7 mg/dL (0.7-1.2); EST GLOMERULAR FILTRATION RATE > 60 mL/min
[2019-04-10 12:26] LABS: GLUCOSE,RANDOM 104 mg/dL (74-109)
--- NOTE | 2019-04-10 13:20 | RADIOLOGY REPORT ---
EXAMINATION: Two View Chest Radiographs EXAM DATE: 04/10/2019 1:11 PM TECHNIQUE: PA and lateral views. INDICATION: sob, chest pain ,wheezing COMPARISON: 02/20/2019 ENCOUNTER: Not applicable FINDINGS: The heart is normal in size. There is no pulmonary vascular congestion. The hilar and mediastinal con tours appear stable. No effusion, pneumothorax or acute pulmonary process is seen. IMPRESSION: No acute findings. No significant change from 02/20/2019. Dictated by: Keshav Dick MD on 04/10/2019 1:16 PM. .
== END 2019-04-10 14:02 | disposition home or self-care (01) ==
LOC: ER 11:46
DX: J44.1 Chronic obstructive pulmonary disease with (acute) exacerbation (principal); Z87.891 Personal history of nicotine dependence; I10 Essential (primary) hypertension
CPT/HCPCS: 71046; 80048; 84484; 85027; 93005; 93010; 94640; 96374; 99284; J2930

== ENCOUNTER 2019-04-11 16:13 | Inpatient (IN) | payer MEDICAID ==
[2019-04-11] MEDS ORDERED: ALBUTEROL SULFATE (0.083%) 2.5 MG/3 ML NEB INH PRN (16:17)
--- NOTE | 2019-04-11 17:24 | History & Physical ---
History of Present Illness - Date of Service Date of Service for History & Physical: 04/14/19 - History of Present Illness Admitting Diagnosis: COPD Exacerbation History of Present Illness: 53 yo male presents to [facility] for direct admit. Pt was seen at [facility] for COPD exacerbation follow up, sat 87%, lung sounds were noted to be diminished, wheezing, coarse and pt coughing frequently with labored breathing. Had failed outpt tx with doxycline. PCP Pilar Singh called for direct admit and accepted by Leonora Laboy. Pt presented to [facility] short of breath, audible wheezing, sat 85% with 100 feet ambulation on RA, HR 125, RR 26-30. Pt placed on O2 NC 2L, sats improved to the 90s, RR decreased to low 20s. Pt was able to talk in complete sentences during arrival and admission. EKG ST, no acute process CXR neg for acute process Selected Entries 04/11/19 04/11/19 17:00 17:10 Pulse Rate [ 125 H Pulse Ox Probe] Respiratory 26 H 22 Rate Pulse Ox 85 L Oxygen Flow 2 Rate Oxygen Delivery Room Air Nasal Cannula Method Laboratory Tests 04/11/19 04/11/19 17:17 17:17 WBC 19.8 H Hgb 15.4 Hct 48.2 Plt Count 198 Sodium 140 Potassium 4.4 Chloride 97 L Carbon Dioxide 33.0 H Anion Gap 10.0 BUN 12 Creatinine 0.7 Estimated GFR > 60 Random Glucose 137 H Calcium 9.7 AST 20 ALT 21 Alkaline Phosphatase 113 Troponin T < 0.010 Total Protein 7.0 Albumin 4.3 Globulin 2.7 Albumin/Globulin Ratio 1.6 04/11/19 Pt is alert and oriented, making jokes but significant difficulty in breathing noted. Lungs diminished, rhonchi, wheezing, crackles noted. Heart tachycardia but no murmur noted. No lower leg edema, moving all extremities with no difficulties. Ambulating with with steady gait. Pt reports that he does not smoke cigarettes but states he smokes 30 "fat joints" daily with some edibles but if he does too many edibles it gives him a headache. Pt notes that he does not do maintenance tx for COPD r/t cost of inhalers. POC admit for COPD exacerbation, IV steroids, neb tx, IV abx. Repeat labs in the AM PCP Pilar Singh Past Medical History - SOCIAL HISTORY Smoking Status: Former smoker Drug Use Detail:: Marijuana - RESPIRATORY Hx Respiratory Disorders: Yes Hx COPD: Yes (diagnosed 2016) Hx Pneumonia: Yes (Jun, 2016) Comment:: home nebulizer - CARDIOVASCULAR Hx Cardio Disorders: Yes Hx Hypertension: Yes - NEURO Hx Neuro Disorders: No - GI Hx GI Disorders: No - Hx Genitourinary Disorders: No - ENDOCRINE Hx Endocrine Disorders: No - MUSCULOSKELETAL Hx Musculoskeletal Disorders: No - PSYCH Hx Psych Problems: No - HEMATOLOGY/ONCOLOGY Hx Hematology/Oncology Disorders: No Family Medical History Hx Cancer: Father Hx Diabetes: Mother Hx Heart Disease: Mother H&P Meds/Allergies - Allergies Allergies: Allergies Allergy/AdvReac Type Severity Reaction Status Date / Time No Known Drug Allergies Allergy Verified 04/10/19 12:07 - Home Medications Previous Rx's Medication Instructions Recorded Doxycycline Hyclate 100 mg PO BID #20 cap 04/10/19 Prednisone [Prednisone 10Mg] 10 mg PO ASDIR #30 tab 04/10/19 - Active Medications Active Medications: Current Medications Albuterol Sulfate (Albuterol Sulfate) 2.5 mg INH Q2H PRN PRN Reason: DIFFICULTY IN BREATHING Albuterol/Ipratropium (Duoneb) 3 ml INH RESP.Q4H.WA PATO Amlodipine Besylate (Norvasc) 2.5 mg PO DAILY PATO Carvedilol (Coreg) 6.25 mg PO BID PATO Doxycycline Hyclate (Vibramycin) 100 mg PO BID PATO Guaifenesin (Mucinex) 600 mg PO BID PATO Hydrochlorothiazide (Hctz 25mg) 50 mg PO DAILY PATO CEFTRIAXONE 1GM/50ML BAG (Ceftriaxone 1 Gm-D5w Bag) 1 gm in 50 mls @ 100 mls/hr IVPB Q12H PATO Loratadine (Claritin) 10 mg PO DAILY PATO Losartan Potassium (Cozaar) 50 mg PO BID PATO Methylprednisolone Sodium Succinate (Solu-Medrol) 125 mg IVP Q24H PATO Montelukast Sodium (Singulair) 10 mg PO QHS PATO Physical Exam - General General Appearance: Alert, Oriented x3, Cooperative, Moderate distress Limitations: No limitations - Head Head exam: Normocephalic - Eye Eye exam: Normal appearance - ENT ENT exam: Mucous membranes dry Ear exam: Normal external inspection Mouth exam: Normal external inspection Teeth exam: Dental caries - Neck Neck exam: Normal inspection - Respiratory Respiratory exam: Decreased breath sounds, Respiratory distress, Rhonchi, Wheezes. negative: Normal lung sounds bilaterally - Cardiovascular Cardiovascular Exam: Normal rhythm, Normal heart sounds, Tachycardia Peripheral Pulses: 2+: Dorsalis Pedis (R), Dorsalis Pedis (L), 3+: Radial (R), Radial (L) - GI/Abdominal GI/Abdominal exam: Soft, Normal bowel sounds - Rectal Rectal exam: Deferred - exam: Deferred - Extremities Extremities exam: Normal inspection, Normal capillary refill, Other (gloria lower legs skin is red, shiny with ankle hair loss). negative: Pedal edema - Back Back exam: Reports: Normal inspection, Full ROM. Denies: CVA tenderness (R), CVA tenderness (L) - Neurological Neurological exam: Normal gait, Oriented X3 - Psychiatric Psychiatric exam: Normal affect, Normal mood - Skin Skin exam: Dry, Erythema Results - Labs Result Diagrams: 04/14/19 14:20 04/14/19 06:20 - Imaging and Cardiology Chest x-ray Status: Report reviewed VTE H&P Assessment - Risk for VTE Risk for VTE: Yes Risk Level: Moderate Risk Assessment Date: 04/13/19 Risk Assessment Time: 12:25 VTE Orders Placed or Will Be Placed: Yes Plan - Inpatient Certification Inpatient Certification: Admit to inpatient care: Based on my medical assessment, after consideration of patient's risk factors (age, co-morbidities and patient presenting symptoms and acuity), I expect that this patient will remain in the hospital greater than or equal to two midnights and that the services needed warrant inpatient care because: Patient Risk Factors: hypoxia, leukocytosis, respiratory failure Estimated length of stay: The patient may reasonably be expected to be discharged or transferred to a hospital within 96 hours after admission to [facility]. Services needed: IV antibiotics, IV steroids, freq neb txs, repeat labs, cardiac monitoring Post hospital care (if known): [] I certify that my determination is in accordance with my understanding of Medicare requirements for reasonable and necessary inpatient services. 04/13/19 12:27 - Detailed Diagnosis and Plan (1) COPD exacerbation Current Visit: No Status: Acute Base Code: J44.1 - CHRONIC OBSTRUCTIVE PULMONARY DISEASE W (ACUTE) EXACERBATION Comment: 04/11/19 - Failed outpt treatment, seen in ED 04/10/19 and seen in [facility] 04/11/19 for increasing SOB and cough - Given Doxycycline 100mg BID 04/10/19 - CXR 04/11/19: no acute cardiopulmonary process, COPD - CBC 19.8, trop neg - Supplemental oxygen to keep pulse ox 90-92%, sat 85% RA - Doxycycline 100mg BID, Rocephin 1gm q12 - Duoneb scheduled q4h, solumedrol 125mg IVP q12 (2) Leukocytosis Current Visit: Yes Status: Acute Base Code: D72.829 - ELEVATED WHITE BLOOD CELL COUNT, UNSPECIFIED Comment: 04/11/19 -WBC 19 (3) Full code status Current Visit: No Status: Acute Base Code: Z78.9 - OTHER SPECIFIED HEALTH STATUS Comment: 04/11/19 - Full code this admission
[2019-04-11 17:40] LABS: ABSOLUTE NEUTROPHIL COUNT 18.56; BASO % 0.1 % (0-6); HEMATOCRIT 48.2 % (42.0-52.0); HEMOGLOBIN 15.4 gm/dl (14.0-18.0); LYMPH % 3.7 % (16-45); MEAN CELL VOLUME 94.7 fl (81-97); MEAN CORPUSCULAR HEMOGLOBIN 30.3 pg (27-33); MEAN PLATELET VOLUME 11.7 fl (7.4-10.4); MONO % 2.6 % (0-9); PLATELET COUNT 198 K/uL (130-400); RED BLOOD COUNT 5.09 M/uL (4.40-5.70); RED CELL DISTRIBUTION WIDTH 13.4 % (11.5-14.5); WHITE BLOOD COUNT W/O DIFF 19.8 K/uL (4.2-12.2)
[2019-04-11 17:46] LABS: ALB/GLOB RATIO 1.6 (1.1-1.8); ALBUMIN 4.3 g/dL (4.0-5.0); ALKALINE PHOSPHATASE 113 U/L (40-129); ALT/SGPT 21 U/L (<41); AST/SGOT 20 U/L (10.0-50.0); BLOOD UREA NITROGEN 12 mg/dL (6-20); CREATININE 0.7 mg/dL (0.7-1.2); EST GLOMERULAR FILTRATION RATE > 60 mL/min; GLUCOSE,RANDOM 137 mg/dL (74-109)
[2019-04-11] MEDS: METHYLPREDNISOLONE PF 125MG/VIAL IVP SCH (17:49)
[2019-04-11] MEDS: CEFTRIAXONE 1GM/50ML BAG 1 GM/50 ML BAG IVPB SCH (17:49)
--- NOTE | 2019-04-11 17:54 | RADIOLOGY REPORT ---
EXAMINATION: Two View Chest Radiographs EXAM DATE: 04/11/2019 5:39 PM TECHNIQUE: Frontal and lateral views INDICATION: SOB, cough COMPARISON: April 10, 2019 ENCOUNTER: Not applicable FINDINGS: The heart, mediastinum, and pulmonary vasculature are stable. No lung consolidation or pleural effu sions are present. IMPRESSION: Negative for active intrathoracic disease Dictated by: Daksha Cardenas MD on 04/11/2019 5:51 PM. .
[2019-04-11] MEDS ORDERED: FLU VAC QS 2019-20 (INPT, 6MO+) 60MCG/0.5ML IM ONE (17:59)
[2019-04-11] MEDS: IPRATROPIUM/ALBUTEROL (0.5MG/3MG) NEB INH SCH ×2 (19:20→22:54)
[2019-04-11] MEDS: LOSARTAN POTASSIUM 25 MG TABLET PO SCH (21:09)
[2019-04-11] MEDS: MONTELUKAST SODIUM 10MG TABLET PO SCH (21:09)
[2019-04-11] MEDS: GUAIFENESIN 600 MG TABCR PO SCH (21:09)
[2019-04-11] MEDS: DOXYCYCLINE HYCLATE 100 MG CAPSULE PO SCH (21:09)
[2019-04-11] MEDS: CARVEDILOL 3.125 MG TABLET PO SCH (21:10)
[2019-04-11] MEDS ORDERED: ACETYLCYSTEINE 20% INH SCH (22:00)
[2019-04-12] MEDS: CEFTRIAXONE 1GM/50ML BAG 1 GM/50 ML BAG IVPB SCH ×2 (06:16→18:10)
[2019-04-12] MEDS: IPRATROPIUM/ALBUTEROL (0.5MG/3MG) NEB INH SCH ×5 (07:07→21:12)
[2019-04-12] MEDS: ACETYLCYSTEINE 20% INH SCH ×4 (09:09→21:13)
[2019-04-12] MEDS: GUAIFENESIN 600 MG TABCR PO SCH ×2 (10:04→22:42)
[2019-04-12] MEDS: AMLODIPINE BESYLATE 5MG TAB PO SCH (10:04)
[2019-04-12] MEDS: CARVEDILOL 3.125 MG TABLET PO SCH ×2 (10:04→22:43)
[2019-04-12] MEDS: DOXYCYCLINE HYCLATE 100 MG CAPSULE PO SCH ×2 (10:04→22:43)
[2019-04-12] MEDS: HYDROCHLOROTHIAZIDE 25 MG TABLET PO SCH (10:04)
[2019-04-12] MEDS: LOSARTAN POTASSIUM 25 MG TABLET PO SCH ×2 (10:05→22:43)
[2019-04-12] MEDS: LORATADINE 10 MG TABLET PO SCH (10:05)
--- NOTE | 2019-04-12 11:19 | Physician Progress Note ---
Subjective - Date Date of Physician Progress Note: 04/12/19 - Subjective Subjective Comment: 04/12/19 Pt reports some improvement in symptoms but continues to have ARMENTA, cough, sputum that he can not clear and generaized fatigue and chills. A&Ox4, denies CP Objective - Vital Signs Vital Signs: Vital Signs - Last 24 Hrs Temp Pulse Pulse Pulse Resp BP BP 04/12/19 09:26 20 04/12/19 09:20 109 H 18 04/12/19 09:12 108 H 18 04/12/19 09:00 20 04/12/19 08:00 97.7 F 107 H 18 154/78 04/12/19 06:00 98.0 F 96 H 22 143/84 04/11/19 23:51 97.8 F 107 H 22 125/72 04/11/19 22:55 107 H 18 04/11/19 21:00 118 H 18 04/11/19 20:00 97.9 F 118 H 24 147/81 04/11/19 19:21 109 H 18 04/11/19 17:10 114 H 22 138/83 99/66 04/11/19 17:00 125 H 26 H Pulse Ox 04/12/19 09:26 04/12/19 09:20 89 L 04/12/19 09:12 92 L 04/12/19 09:00 04/12/19 08:00 90 L 04/12/19 06:00 90 L 04/11/19 23:51 92 L 04/11/19 22:55 95 04/11/19 21:00 04/11/19 20:00 92 L 04/11/19 19:21 95 04/11/19 17:10 04/11/19 17:00 85 L - General General Appearance: Alert, Oriented x3, Cooperative Limitations: No limitations - Head Head exam: Atraumatic, Normocephalic - Eye Eye exam: Normal appearance - ENT ENT exam: Mucous membranes moist - Respiratory Respiratory exam: Decreased breath sounds, Prolonged expiratory, Rales, Respirat ory distress (mild/mod), Rhonchi, Wheezes - Cardiovascular Cardiovascular Exam: Normal rhythm, Normal heart sounds, Tachycardia Peripheral Pulses: 2+: Radial (R), Radial (L), Dorsalis Pedis (R), Dorsalis Pedis (L) - GI/Abdominal GI/Abdominal exam: Soft, Normal bowel sounds - Rectal Rectal exam: Deferred - exam: Deferred - Back Back exam: Reports: Normal inspection - Neurological Neurological exam: Alert, Normal gait, Oriented X3 - Psychiatric Psychiatric exam: Normal affect, Normal mood Assessment and Plan - Assessment and Plan (1) COPD exacerbation Current Visit: No Status: Acute Base Code: J44.1 - CHRONIC OBSTRUCTIVE PULMONARY DISEASE W (ACUTE) EXACERBATION Comment: 04/12/19 -pt reports improving symptoms but still feeling ill -continue neb tx, steroids and abx -CXR and CT neg for acute process 04/11/19 - Failed outpt treatment, seen in ED 04/10/19 and seen in [facility] 04/11/19 for increasing SOB and cough - Given Doxycycline 100mg BID 04/10/19 - CXR 04/11/19: no acute cardiopulmonary process, COPD - CBC 19.8, trop neg - Supplemental oxygen to keep pulse ox 90-92%, sat 85% RA - Doxycycline 100mg BID, Rocephin 1gm q12 - Duoneb scheduled q4h, solumedrol 125mg IVP q12 (2) Leukocytosis Current Visit: Yes Status: Acute Base Code: D72.829 - ELEVATED WHITE BLOOD CELL COUNT, UNSPECIFIED Comment: 04/12/19 -WBC 19->23.9 -potential increase in WBC r/t steroid use, pt impoving symptom mgt but will repeat labs AM 04/11/19 -WBC 19 (3) DVT prophylaxis Current Visit: No Status: Acute Base Code: [id number] - Comment: 04/12/19: - Moderate risk due to age, comorbidities, and hospitalization - Lovenox 40mg SQ while hospitalized (4) Full code status Current Visit: No Status: Acute Base Code: Z78.9 - OTHER SPECIFIED HEALTH STATUS Comment: 04/12/19 - Full code this admission Results - Labs Result Diagrams: 04/14/19 14:20 04/14/19 06:20 Labs Last 24 Hours: Laboratory Results - last 24 hr 04/11/19 04/11/19 04/11/19 17:17 17:17 17:17 WBC 19.8 H RBC 5.09 Hgb 15.4 Hct 48.2 MCV 94.7 MCH 30.3 MCHC 32.0 RDW 13.4 Plt Count 198 MPV 11.7 H Neutrophils % 94.0 H Band Neutrophils % 0.0 Lymphocytes % 3.7 L Monocytes % 2.6 Eosinophils % 0.0 Basophils % 0.1 Absolute Neutrophils 18.56 Lymphocytes 6.0 L Monocytes 0.0 Basophils 0.0 Eosinophil Count 0.0 Sodium 140 Potassium 4.4 Chloride 97 L Carbon Dioxide 33.0 H Anion Gap 10.0 BUN 12 Creatinine 0.7 Estimated GFR > 60 Random Glucose 137 H Calcium 9.7 Total Bilirubin 0.20 AST 20 ALT 21 Alkaline Phosphatase 113 Troponin T < 0.010 Total Protein 7.0 Albumin 4.3 Globulin 2.7 Albumin/Globulin Ratio 1.6 Procalcitonin 0.028 04/12/19 04/13/19 04/13/19 01:41 01:30 09:30 WBC RBC Hgb Hct MCV MCH MCHC RDW Plt Count MPV Neutrophils % Band Neutrophils % Lymphocytes % Monocytes % Eosinophils % Basophils % Absolute Neutrophils Lymphocytes Monocytes Basophils Eosinophil Count Sodium Potassium Chloride Carbon Dioxide Anion Gap BUN Creatinine Estimated GFR Random Glucose Calcium Total Bilirubin AST ALT Alkaline Phosphatase Troponin T < 0.010 Cancelled Cancelled Total Protein Albumin Globulin Albumin/Globulin Ratio Procalcitonin DVT/PE Assessment - Risk for VTE Risk for VTE: Yes Risk Level: Moderate Risk Assessment Date: 04/11/19 Risk Assessment Time: 17:00 VTE Orders Placed or Will Be Placed: Yes - Active Medicaitons Current Medications: Current Medications Acetylcysteine (Mucomyst [Neb/Po]) 3 ml INH RESP.Q4H.[facility] Last Admin: 04/12/19 09:09 Dose: 3 ml Documented by: Albuterol Sulfate (Albuterol Sulfate) 2.5 mg INH Q2H PRN PRN Reason: DIFFICULTY IN BREATHING Albuterol/Ipratropium (Duoneb) 3 ml INH RESP.Q4H.[facility] Last Admin: 04/12/19 09:08 Dose: 3 ml Documented by: Amlodipine Besylate (Norvasc) 2.5 mg PO DAILY ON LICENSE OF [facility] Last Admin: 04/12/19 10:04 Dose: 2.5 mg Documented by: Carvedilol (Coreg) 6.25 mg PO BID ON LICENSE OF [facility] Last Admin: 04/12/19 10:04 Dose: 6.25 mg Documented by: Doxycycline Hyclate (Vibramycin) 100 mg PO BID ON LICENSE OF [facility] Last Admin: 04/12/19 10:04 Dose: 100 mg Documented by: Guaifenesin (Mucinex) 600 mg PO BID ON LICENSE OF [facility] Last Admin: 04/12/19 10:04 Dose: 600 mg Documented by: Hydrochlorothiazide (Hctz 25mg) 50 mg PO DAILY ON LICENSE OF [facility] Last Admin: 04/12/19 10:04 Dose: 50 mg Documented by: CEFTRIAXONE 1GM/50ML BAG (Ceftriaxone 1 Gm-D5w Bag) 1 gm in 50 mls @ 100 mls/hr IVPB Q12H ON LICENSE OF [facility] Last Infusion: 04/12/19 07:08 Dose: Infused Documented by: Loratadine (Claritin) 10 mg PO DAILY ON LICENSE OF [facility] Last Admin: 04/12/19 10:05 Dose: 10 mg Documented by: Losartan Potassium (Cozaar) 50 mg PO BID ON LICENSE OF [facility] Last Admin: 04/12/19 10:05 Dose: 50 mg Documented by: Methylprednisolone Sodium Succinate (Solu-Medrol) 125 mg IVP Q24H ON LICENSE OF [facility] Last Admin: 04/11/19 17:49 Dose: 125 mg Documented by: Montelukast Sodium (Singulair) 10 mg PO QHS ON LICENSE OF [facility] Last Admin: 04/11/19 21:09 Dose: 10 mg Documented by: AMI Plan - Labs Result Diagrams: 04/14/19 14:20 04/14/19 06:20
[2019-04-12 14:18] LABS: HEMATOCRIT 49.4 % (42.0-52.0); HEMOGLOBIN 15.5 gm/dl (14.0-18.0); LYMPH % 4.9 % (16-45); MEAN CELL VOLUME 95.9 fl (81-97); MEAN CORPUSCULAR HEMOGLOBIN 30.1 pg (27-33); MEAN CORPUSCULAR HGB CONC 31.4 g/dl (32-36); MEAN PLATELET VOLUME 12.4 fl (7.4-10.4); MONO % 4.2 % (0-9); PLATELET COUNT 225 K/uL (130-400); RED BLOOD COUNT 5.15 M/uL (4.40-5.70); RED CELL DISTRIBUTION WIDTH 13.5 % (11.5-14.5)
[2019-04-12 14:22] LABS: BLOOD UREA NITROGEN 16 mg/dL (6-20); CREATININE 0.7 mg/dL (0.7-1.2); EST GLOMERULAR FILTRATION RATE > 60 mL/min; GLUCOSE,RANDOM 113 mg/dL (74-109)
[2019-04-12 14:33] LABS: WHITE BLOOD COUNT W/O DIFF 23.9 K/uL (4.2-12.2)
[2019-04-12 14:42] LABS: PLATELET ESTIMATE NORMAL (NORMAL); TOXIC GRANULATION 1+
--- NOTE | 2019-04-12 17:41 | CT SCAN REPORT ---
EXAMINATION: CT Chest without IV Contrast EXAM DATE: 04/12/2019 5:04 PM TECHNIQUE: Standard protocol CT images of the chest were performed without intravenous contrast. Lac k of intravenous contrast does limit assessment of the vascular structures and soft tissues. Coronal and sagittal images were reconstructed. INDICATION: dyspnea and cough COMPARISON: Radiograph 04/11/2019; CT 12/06/2018 and 05/28/2016 ENCOUNTER: Not applicable CHEST FINDINGS: Base of Neck & Axillae: There is no adenopathy. Mediastinum & Sara: There is no mediastinal or hilar adenopathy. Cardiovascular: The heart has a normal size. There is no pericardial effusion. The thoracic aorta an d main pulmonary artery have a normal caliber. Tracheobronchial Structures: There is no bronchial wall thickening or bronchiectasis. Lung Parenchyma: Linear atelectasis at the lung bases. The lungs are otherwise clear. Pleural Space: There are no pleural effusions. There is no pneumothorax. Upper Abdomen: Included portions of the upper abdomen are unremarkable. Chest Wall & Musculoskeletal: No suspicious bone lesions. 3-D Imaging at an Independent Workstation: Not performed. Assessment of the soft tissues and vascular structures is overall limited on noncontrast imaging, IMPRESSION: Bibasilar atelectasis. Otherwise, unremarkable examination. Dictated by: Dick Be MD on 04/12/2019 5:32 PM. .
[2019-04-12] MEDS: METHYLPREDNISOLONE PF 125MG/VIAL IVP SCH (18:10)
[2019-04-12 21:13] LABS: URINE APPEARANCE CLEAR; URINE BILIRUBIN NEGATIVE (NEGATIVE); URINE BLOOD NEGATIVE (NEGATIVE); URINE COLOR YELLOW; URINE GLUCOSE (UA) NEGATIVE (NEGATIVE); URINE KETONE NEGATIVE (NEGATIVE); URINE LEUKOCYTE ESTERASE NEGATIVE (NEGATIVE); URINE NITRITE NEGATIVE (NEGATIVE); URINE PROTEIN NEGATIVE (NEGATIVE); URINE UROBILINOGEN 0.2 E.U./dL (0.20 - 1.00)
[2019-04-12] MEDS: MONTELUKAST SODIUM 10MG TABLET PO SCH (22:42)
[2019-04-13] MEDS: BUDESONIDE 0.5 MG/2 ML INH SCH ×3 (06:04→09:44)
[2019-04-13] MEDS: IPRATROPIUM/ALBUTEROL (0.5MG/3MG) NEB INH SCH ×4 (07:50→18:34)
[2019-04-13] MEDS: ACETYLCYSTEINE 20% INH SCH ×4 (07:50→18:34)
[2019-04-13] MEDS: CEFTRIAXONE 1GM/50ML BAG 1 GM/50 ML BAG IVPB SCH ×2 (08:00→17:26)
[2019-04-13 08:30] LABS: HEMATOCRIT 52.3 % (42.0-52.0); HEMOGLOBIN 16.5 gm/dl (14.0-18.0); MEAN CORPUSCULAR HEMOGLOBIN 29.6 pg (27-33); MEAN CORPUSCULAR HGB CONC 31.5 g/dl (32-36); RED BLOOD COUNT 5.56 M/uL (4.40-5.70); WHITE BLOOD COUNT W/O DIFF 18.1 K/uL (4.2-12.2)
[2019-04-13 08:31] LABS: MEAN CELL VOLUME 94.1 fl (81-97); MEAN PLATELET VOLUME 12.1 fl (7.4-10.4); PLATELET COUNT 221 K/uL (130-400); RED CELL DISTRIBUTION WIDTH 13.4 % (11.5-14.5)
[2019-04-13 08:52] LABS: BLOOD UREA NITROGEN 19 mg/dL (6-20); CREATININE 0.8 mg/dL (0.7-1.2); EST GLOMERULAR FILTRATION RATE > 60 mL/min; GLUCOSE,RANDOM 118 mg/dL (74-109)
[2019-04-13] MEDS: HYDROCHLOROTHIAZIDE 25 MG TABLET PO SCH (09:36)
[2019-04-13] MEDS: AMLODIPINE BESYLATE 5MG TAB PO SCH (09:36)
[2019-04-13] MEDS: CARVEDILOL 3.125 MG TABLET PO SCH ×2 (09:36→22:20)
[2019-04-13] MEDS: LORATADINE 10 MG TABLET PO SCH (09:36)
[2019-04-13] MEDS: GUAIFENESIN 600 MG TABCR PO SCH ×2 (09:36→22:21)
[2019-04-13] MEDS: LOSARTAN POTASSIUM 25 MG TABLET PO SCH ×2 (09:36→22:20)
[2019-04-13] MEDS: DOXYCYCLINE HYCLATE 100 MG CAPSULE PO SCH ×2 (09:36→22:21)
[2019-04-13] MEDS: METHYLPREDNISOLONE PF 125MG/VIAL IVP SCH ×2 (13:35→20:40)
[2019-04-13] MEDS: BREO (FLUTICASONE/VILANTEROL) 100MCG/25MCG INHALER INH SCH (14:25)
[2019-04-13] MEDS ORDERED: METOPROLOL TART 5 MG/5 ML VIAL IV ONE (17:58)
[2019-04-13] MEDS ORDERED: METOPROLOL TART 25 MG TABLET PO ONE (18:34)
[2019-04-13] MEDS: MONTELUKAST SODIUM 10MG TABLET PO SCH (22:19)
[2019-04-14] MEDS: IPRATROPIUM/ALBUTEROL (0.5MG/3MG) NEB INH SCH ×6 (05:20→21:44)
[2019-04-14] MEDS: ACETYLCYSTEINE 20% INH SCH ×6 (05:21→21:46)
[2019-04-14] MEDS: BUDESONIDE 0.5 MG/2 ML INH SCH ×3 (05:21→21:44)
[2019-04-14] MEDS: METHYLPREDNISOLONE PF 125MG/VIAL IVP SCH ×2 (05:55→11:51)
[2019-04-14] MEDS: CEFTRIAXONE 1GM/50ML BAG 1 GM/50 ML BAG IVPB SCH (05:55)
[2019-04-14 06:35] LABS: HEMATOCRIT 53.5 % (42.0-52.0); HEMOGLOBIN 17.4 gm/dl (14.0-18.0); MEAN CELL VOLUME 91.5 fl (81-97); MEAN CORPUSCULAR HEMOGLOBIN 29.7 pg (27-33); MEAN CORPUSCULAR HGB CONC 32.5 g/dl (32-36); MEAN PLATELET VOLUME 11.6 fl (7.4-10.4); PLATELET COUNT 235 K/uL (130-400); RED BLOOD COUNT 5.85 M/uL (4.40-5.70); RED CELL DISTRIBUTION WIDTH 13.4 % (11.5-14.5)
[2019-04-14 06:50] LABS: BLOOD UREA NITROGEN 21 mg/dL (6-20); CREATININE 0.8 mg/dL (0.7-1.2); EST GLOMERULAR FILTRATION RATE > 60 mL/min; GLUCOSE,RANDOM 137 mg/dL (74-109); WHITE BLOOD COUNT W/O DIFF 21.2 K/uL (4.2-12.2)
[2019-04-14 07:09] LABS: PLATELET ESTIMATE NORMAL (NORMAL)
[2019-04-14 07:10] LABS: ABSOLUTE NEUTROPHIL COUNT 19.94
[2019-04-14] MEDS: AMLODIPINE BESYLATE 5MG TAB PO SCH (09:27)
[2019-04-14] MEDS: DOXYCYCLINE HYCLATE 100 MG CAPSULE PO SCH ×2 (09:27→22:39)
[2019-04-14] MEDS: HYDROCHLOROTHIAZIDE 25 MG TABLET PO SCH (09:28)
[2019-04-14] MEDS: ENOXAPARIN 40 MG/0.4 ML SYR SQ SCH ×2 (09:29→09:39)
[2019-04-14] MEDS: GUAIFENESIN 600 MG TABCR PO SCH ×2 (09:29→22:37)
[2019-04-14] MEDS: LORATADINE 10 MG TABLET PO SCH (09:29)
[2019-04-14] MEDS: LOSARTAN POTASSIUM 25 MG TABLET PO SCH ×2 (09:29→22:38)
[2019-04-14] MEDS: CARVEDILOL 3.125 MG TABLET PO SCH (09:29)
[2019-04-14] MEDS: BREO (FLUTICASONE/VILANTEROL) 100MCG/25MCG INHALER INH SCH (09:52)
[2019-04-14] MEDS ORDERED: CARVEDILOL 3.125 MG TABLET PO SCH ×2 (10:15→10:30)
[2019-04-14 14:28] LABS: ABSOLUTE NEUTROPHIL COUNT 21.28; HEMATOCRIT 52.8 % (42.0-52.0); HEMOGLOBIN 17.1 gm/dl (14.0-18.0); LYMPH % 3.7 % (16-45); MEAN CELL VOLUME 90.9 fl (81-97); MEAN CORPUSCULAR HEMOGLOBIN 29.4 pg (27-33); MEAN CORPUSCULAR HGB CONC 32.4 g/dl (32-36); MEAN PLATELET VOLUME 11.6 fl (7.4-10.4); MONO % 3.8 % (0-9); PLATELET COUNT 233 K/uL (130-400); RED BLOOD COUNT 5.81 M/uL (4.40-5.70); RED CELL DISTRIBUTION WIDTH 13.7 % (11.5-14.5)
[2019-04-14] MEDS: PIPERACILLIN SODIUM/TAZOBACTAM 3.375 GM in 0.9 % SODIUM CHLORIDE 100ML 100 ML IVPB SCH ×2 (15:53→22:30)
--- NOTE | 2019-04-14 20:47 | Physician Progress Note ---
Subjective - Date Date of Physician Progress Note: 04/13/19 - Subjective Subjective Comment: 04/12/19 Pt reports some improvement in symptoms but continues to have ARMENTA, cough, sputum that he can not clear and generaized fatigue and chills. A&Ox4, denies CP 04/13/19 pt conditing improving, still has ARMENTA and wheezing but reports he is feeling better. C/O getting bored but states he feels 50-70% better. Objective - Vital Signs Vital Signs: Vital Signs - Last 24 Hrs Temp Pulse Pulse Pulse Resp BP BP 04/14/19 18:28 110 H 20 04/14/19 15:58 101 H 24 131/86 04/14/19 14:12 105 H 18 04/14/19 11:30 128 H 20 127/77 04/14/19 09:52 108 H 20 04/14/19 09:00 98.0 F 91 H 20 155/105 04/14/19 06:03 96 H 16 04/14/19 06:00 98.0 F 95 H 24 161/108 04/14/19 00:00 98.0 F 100 H 22 133/100 Pulse Ox 04/14/19 18:28 96 04/14/19 15:58 04/14/19 14:12 94 L 04/14/19 11:30 90 L 04/14/19 09:52 95 04/14/19 09:00 90 L 04/14/19 06:03 94 L 04/14/19 06:00 92 L 04/14/19 00:00 93 L - General General Appearance: Alert, Oriented x3, Cooperative, Mild distress Limitations: No limitations - Head Head exam: Atraumatic, Normocephalic - Eye Eye exam: Normal appearance - ENT ENT exam: Mucous membranes moist Ear exam: Normal external inspection Mouth exam: Normal external inspection Teeth exam: Dental caries - Neck Neck exam: Normal inspection - Respiratory Respiratory exam: Decreased breath sounds, Prolonged expiratory, Rales, Respiratory distress (mild/mod), Rhonchi, Wheezes - Cardiovascular Cardiovascular Exam: Normal rhythm, Normal heart sounds, Tachycardia Peripheral Pulses: 2+: Radial (R), Radial (L), Dorsalis Pedis (R), Dorsalis Pedis (L) - GI/Abdominal GI/Abdominal exam: Soft, Normal bowel sounds - Rectal Rectal exam: Deferred - exam: Deferred - Extremities Extremities exam: Normal inspection, Normal capillary refill, Other (gloria lower legs skin is red, shiny with ankle hair loss). negative: Pedal edema - Back Back exam: Reports: Normal inspection - Neurological Neurological exam: Alert, Normal gait, Oriented X3 - Psychiatric Psychiatric exam: Normal affect, Normal mood - Skin Skin exam: Dry, Erythema Assessment and Plan - Assessment and Plan (1) COPD exacerbation Current Visit: No Status: Acute Base Code: J44.1 - CHRONIC OBSTRUCTIVE PULMONARY DISEASE W (ACUTE) EXACERBATION Comment: 04/13/19 -pt reports feeling 50-70% better but still tired and coughing -agrees to continue current tx and eval in the AM 04/12/19 -pt reports improving symptoms but still feeling ill -continue neb tx, steroids and abx -CXR and CT neg for acute process 04/11/19 - Failed outpt treatment, seen in ED 04/10/19 and seen in [facility] 04/11/19 for increasing SOB and cough - Given Doxycycline 100mg BID 04/10/19 - CXR 04/11/19: no acute cardiopulmonary process, COPD - CBC 19.8, trop neg - Supplemental oxygen to keep pulse ox 90-92%, sat 85% RA - Doxycycline 100mg BID, Rocephin 1gm q12 - Duoneb scheduled q4h, solumedrol 125mg IVP q12 (2) Leukocytosis Current Visit: Yes Status: Acute Base Code: D72.829 - ELEVATED WHITE BLOOD CELL COUNT, UNSPECIFIED Comment: 04/13/19 WBC 19->23.9->18.1 procalcitonin 0.024 -repeat in the AM and potential d/c continued improvement 04/12/19 -WBC 19->23.9 -potential increase in WBC r/t steroid use, pt impoving symptom mgt but will repeat labs AM 04/11/19 -WBC 19 (3) DVT prophylaxis Current Visit: No Status: Acute Base Code: [id number] - Comment: 04/13/19: - Moderate risk due to age, comorbidities, and hospitalization - Lovenox 40mg SQ while hospitalized (4) Full code status Current Visit: No Status: Acute Base Code: Z78.9 - OTHER SPECIFIED HEALTH STATUS Comment: 04/13/19 - Full code this admission Results - Labs Result Diagrams: 04/14/19 14:20 04/14/19 06:20 Labs Last 24 Hours: Laboratory Results - last 24 hr 04/14/19 04/14/19 04/14/19 06:00 06:20 06:20 WBC 21.2 H* RBC 5.85 H Hgb 17.4 Hct 53.5 H MCV 91.5 MCH 29.7 MCHC 32.5 RDW 13.4 Plt Count 235 MPV 11.6 H Neutrophils % 94.0 H Band Neutrophils % 0.0 Lymphocytes % Monocytes % Eosinophils % Not Reportable Basophils % Not Reportable Absolute Neutrophils 19.94 Lymphocytes 4.0 L Monocytes 2.0 Basophils 0.0 Platelet Estimate Normal RBC Morphology Normal Eosinophil Count 0.0 Sodium 140 Potassium 4.7 H Chloride 93 L Carbon Dioxide 35.0 H Anion Gap 12.0 BUN 21 H Creatinine 0.8 Estimated GFR > 60 Random Glucose 137 H Calcium 9.8 Procalcitonin < 0.020 04/14/19 14:20 WBC 23.0 H* RBC 5.81 H Hgb 17.1 Hct 52.8 H MCV 90.9 MCH 29.4 MCHC 32.4 RDW 13.7 Plt Count 233 MPV 11.6 H Neutrophils % 95.0 H Band Neutrophils % 0.0 Lymphocytes % 3.7 L Monocytes % 3.8 Eosinophils % 0.0 Basophils % 0.0 Absolute Neutrophils 21.28 Lymphocytes 3.0 L Monocytes 2.0 Basophils 0.0 Platelet Estimate RBC Morphology Eosinophil Count 0.0 Sodium Potassium Chloride Carbon Dioxide Anion Gap BUN Creatinine Estimated GFR Random Glucose Calcium Procalcitonin DVT/PE Assessment - Risk for VTE Risk for VTE: No Risk Level: Moderate Risk Assessment Date: 04/11/19 Risk Assessment Time: 17:00 VTE Orders Placed or Will Be Placed: Yes - Active Medicaitons Current Medications: Current Medications Acetylcysteine (Mucomyst [Neb/Po]) 3 ml INH RESP.Q4H.[facility] Last Admin: 04/14/19 18:08 Dose: Not Given Documented by: Albuterol Sulfate (Albuterol Sulfate) 2.5 mg INH Q2H PRN PRN Reason: DIFFICULTY IN BREATHING Albuterol/Ipratropium (Duoneb) 3 ml INH RESP.Q4H.[facility] Last Admin: 04/14/19 18:08 Dose: 3 ml Documented by: Amlodipine Besylate (Norvasc) 2.5 mg PO DAILY [facility] Last Admin: 04/14/19 09:27 Dose: 2.5 mg Documented by: Budesonide (Pulmicort) 0.5 mg INH BID [facility] Last Admin: 04/14/19 09:52 Dose: 0.5 mg Documented by: Carvedilol (Coreg) 12.5 mg PO BID [facility] Carvedilol (Coreg) 6.25 mg PO NOW [facility] Last Admin: 04/14/19 10:23 Dose: 6.25 mg Documented by: Doxycycline Hyclate (Vibramycin) 100 mg PO BID [facility] Last Admin: 04/14/19 09:27 Dose: 100 mg Documented by: Enoxaparin Sodium (Lovenox) 40 mg SQ DAILY [facility] Last Admin: 04/14/19 09:39 Dose: Not Given Documented by: Guaifenesin (Mucinex) 600 mg PO BID [facility] Last Admin: 04/14/19 09:29 Dose: 600 mg Documented by: Hydrochlorothiazide (Hctz 25mg) 50 mg PO DAILY [facility] Last Admin: 04/14/19 09:28 Dose: 50 mg Documented by: Piperacillin Sod/Tazobactam (Sod 3.375 gm/ Sodium Chloride) 100 mls @ 200 mls/hr IVPB Q6H [facility] Last Infusion: 04/14/19 16:23 Dose: Infused Documented by: Loratadine (Claritin) 10 mg PO DAILY [facility] Last Admin: 04/14/19 09:29 Dose: 10 mg Documented by: Losartan Potassium (Cozaar) 50 mg PO BID [facility] Last Admin: 04/14/19 09:29 Dose: 50 mg Documented by: Montelukast Sodium (Singulair) 10 mg PO QHS [facility] Last Admin: 04/13/19 22:19 Dose: 10 mg Documented by: Prednisone (Prednisone 20mg) 40 mg PO DAILYWM [facility] Stop: 04/20/19 08:01 AMI Plan - Labs Result Diagrams: 04/14/19 14:20 04/14/19 06:20
--- NOTE | 2019-04-14 20:52 | Physician Progress Note ---
Subjective - Date Date of Physician Progress Note: 04/13/19 - Subjective Subjective Comment: 04/12/19 Pt reports some improvement in symptoms but continues to have ARMENTA, cough, sputum that he can not clear and generaized fatigue and chills. A&Ox4, denies CP 04/13/19 pt conditing improving, still has ARMENTA and wheezing but reports he is feeling better. C/O getting bored but states he feels 50-70% better. 04/14/19 pt req to go home today, cough improved, ARMENTA decreased, still has audible wheezing but reports he can now sleep in bed and that is much better Objective - Vital Signs Vital Signs: Vital Signs - Last 24 Hrs Temp Pulse Pulse Pulse Resp BP BP 04/14/19 18:28 110 H 20 04/14/19 15:58 101 H 24 131/86 04/14/19 14:12 105 H 18 04/14/19 11:30 128 H 20 127/77 04/14/19 09:52 108 H 20 04/14/19 09:00 98.0 F 91 H 20 155/105 04/14/19 06:03 96 H 16 04/14/19 06:00 98.0 F 95 H 24 161/108 04/14/19 00:00 98.0 F 100 H 22 133/100 Pulse Ox 04/14/19 18:28 96 04/14/19 15:58 04/14/19 14:12 94 L 04/14/19 11:30 90 L 04/14/19 09:52 95 04/14/19 09:00 90 L 04/14/19 06:03 94 L 04/14/19 06:00 92 L 04/14/19 00:00 93 L - General General Appearance: Alert, Oriented x3, Cooperative, No acute distress Limitations: No limitations - Head Head exam: Atraumatic, Normocephalic - Eye Eye exam: Normal appearance - ENT ENT exam: Mucous membranes moist Ear exam: Normal external inspection Mouth exam: Normal external inspection Teeth exam: Dental caries - Neck Neck exam: Normal inspection - Respiratory Respiratory exam: Decreased breath sounds, Prolonged expiratory, Rales, Respiratory distress (mild/mod), Rhonchi, Wheezes - Cardiovascular Cardiovascular Exam: Normal rhythm, Normal heart sounds, Tachycardia Peripheral Pulses: 2+: Radial (R), Radial (L), Dorsalis Pedis (R), Dorsalis Pedis (L) - GI/Abdominal GI/Abdominal exam: Soft, Normal bowel sounds - Rectal Rectal exam: Deferred - exam: Deferred - Extremities Extremities exam: Normal inspection, Normal capillary refill, Other (gloria lower legs skin is red, shiny with ankle hair loss). negative: Pedal edema - Back Back exam: Reports: Normal inspection - Neurological Neurological exam: Alert, Normal gait, Oriented X3 - Psychiatric Psychiatric exam: Normal affect, Normal mood - Skin Skin exam: Dry, Erythema Assessment and Plan - Assessment and Plan (1) COPD exacerbation Current Visit: No Status: Acute Base Code: J44.1 - CHRONIC OBSTRUCTIVE PULMONARY DISEASE W (ACUTE) EXACERBATION Comment: 04/14/19 -pt reports close to baseline, has concerns about getting portable O2 tank for better mobility -WBC increaseing, changed rocephin to zosyn, procalcitonin decreased again -pulm consult in the am 04/13/19 -pt reports feeling 50-70% better but still tired and coughing -agrees to continue current tx and eval in the AM 04/12/19 -pt reports improving symptoms but still feeling ill -continue neb tx, steroids and abx -CXR and CT neg for acute process 04/11/19 - Failed outpt treatment, seen in ED 04/10/19 and seen in [facility] 04/11/19 for increasing SOB and cough - Given Doxycycline 100mg BID 04/10/19 - CXR 04/11/19: no acute cardiopulmonary process, COPD - CBC 19.8, trop neg - Supplemental oxygen to keep pulse ox 90-92%, sat 85% RA - Doxycycline 100mg BID, Rocephin 1gm q12 - Duoneb scheduled q4h, solumedrol 125mg IVP q12 (2) Leukocytosis Current Visit: Yes Status: Acute Base Code: D72.829 - ELEVATED WHITE BLOOD CELL COUNT, UNSPECIFIED Comment: 04/14/19 WBC 19->23.9->18.1->21.2->23 (1400) changed abx to zosyn ([facility] with [facility]) pulm consult in the am CXR and CT are inconclusive of infection 04/13/19 WBC 19->23.9->18.1 procalcitonin 0.024 -repeat in the AM and potential d/c continued improvement 04/12/19 -WBC 19->23.9 -potential increase in WBC r/t steroid use, pt impoving symptom mgt but will repeat labs AM 04/11/19 -WBC 19 (3) DVT prophylaxis Current Visit: No Status: Acute Base Code: [id number] - Comment: 04/14/19: - Moderate risk due to age, comorbidities, and hospitalization - Lovenox 40mg SQ while hospitalized (4) Full code status Current Visit: No Status: Acute Base Code: Z78.9 - OTHER SPECIFIED HEALTH STATUS Comment: 04/14/19 - Full code this admission Results - Labs Result Diagrams: 04/14/19 14:20 04/14/19 06:20 Labs Last 24 Hours: Laboratory Results - last 24 hr 04/14/19 04/14/19 04/14/19 06:00 06:20 06:20 WBC 21.2 H* RBC 5.85 H Hgb 17.4 Hct 53.5 H MCV 91.5 MCH 29.7 MCHC 32.5 RDW 13.4 Plt Count 235 MPV 11.6 H Neutrophils % 94.0 H Band Neutrophils % 0.0 Lymphocytes % Monocytes % Eosinophils % Not Reportable Basophils % Not Reportable Absolute Neutrophils 19.94 Lymphocytes 4.0 L Monocytes 2.0 Basophils 0.0 Platelet Estimate Normal RBC Morphology Normal Eosinophil Count 0.0 Sodium 140 Potassium 4.7 H Chloride 93 L Carbon Dioxide 35.0 H Anion Gap 12.0 BUN 21 H Creatinine 0.8 Estimated GFR > 60 Random Glucose 137 H Calcium 9.8 Procalcitonin < 0.020 04/14/19 14:20 WBC 23.0 H* RBC 5.81 H Hgb 17.1 Hct 52.8 H MCV 90.9 MCH 29.4 MCHC 32.4 RDW 13.7 Plt Count 233 MPV 11.6 H Neutrophils % 95.0 H Band Neutrophils % 0.0 Lymphocytes % 3.7 L Monocytes % 3.8 Eosinophils % 0.0 Basophils % 0.0 Absolute Neutrophils 21.28 Lymphocytes 3.0 L Monocytes 2.0 Basophils 0.0 Platelet Estimate RBC Morphology Eosinophil Count 0.0 Sodium Potassium Chloride Carbon Dioxide Anion Gap BUN Creatinine Estimated GFR Random Glucose Calcium Procalcitonin DVT/PE Assessment - Risk for VTE Risk for VTE: No Risk Level: Moderate Risk Assessment Date: 04/11/19 Risk Assessment Time: 17:00 VTE Orders Placed or Will Be Placed: Yes - Active Medicaitons Current Medications: Current Medications Acetylcysteine (Mucomyst [Neb/Po]) 3 ml INH RESP.Q4H.[facility] Last Admin: 04/14/19 18:08 Dose: Not Given Documented by: Albuterol Sulfate (Albuterol Sulfate) 2.5 mg INH Q2H PRN PRN Reason: DIFFICULTY IN BREATHING Albuterol/Ipratropium (Duoneb) 3 ml INH RESP.Q4H.[facility] Last Admin: 04/14/19 18:08 Dose: 3 ml Documented by: Amlodipine Besylate (Norvasc) 2.5 mg PO DAILY [facility] Last Admin: 04/14/19 09:27 Dose: 2.5 mg Documented by: Budesonide (Pulmicort) 0.5 mg INH BID [facility] Last Admin: 04/14/19 09:52 Dose: 0.5 mg Documented by: Carvedilol (Coreg) 12.5 mg PO BID [facility] Carvedilol (Coreg) 6.25 mg PO NOW [facility] Last Admin: 04/14/19 10:23 Dose: 6.25 mg Documented by: Doxycycline Hyclate (Vibramycin) 100 mg PO BID [facility] Last Admin: 04/14/19 09:27 Dose: 100 mg Documented by: Enoxaparin Sodium (Lovenox) 40 mg SQ DAILY [facility] Last Admin: 04/14/19 09:39 Dose: Not Given Documented by: Guaifenesin (Mucinex) 600 mg PO BID [facility] Last Admin: 04/14/19 09:29 Dose: 600 mg Documented by: Hydrochlorothiazide (Hctz 25mg) 50 mg PO DAILY [facility] Last Admin: 04/14/19 09:28 Dose: 50 mg Documented by: Piperacillin Sod/Tazobactam (Sod 3.375 gm/ Sodium Chloride) 100 mls @ 200 mls/hr IVPB Q6H [facility] Last Infusion: 04/14/19 16:23 Dose: Infused Documented by: Loratadine (Claritin) 10 mg PO DAILY [facility] Last Admin: 04/14/19 09:29 Dose: 10 mg Documented by: Losartan Potassium (Cozaar) 50 mg PO BID [facility] Last Admin: 04/14/19 09:29 Dose: 50 mg Documented by: Montelukast Sodium (Singulair) 10 mg PO QHS [facility] Last Admin: 04/13/19 22:19 Dose: 10 mg Documented by: Prednisone (Prednisone 20mg) 40 mg PO DAILYWM [facility]S [facility] Stop: 04/20/19 08:01 AMI Plan - Labs Result Diagrams: 04/14/19 14:20 04/14/19 06:20
[2019-04-14] MEDS: CARVEDILOL 12.5 MG TABLET PO SCH (22:38)
[2019-04-14] MEDS: MONTELUKAST SODIUM 10MG TABLET PO SCH (22:39)
[2019-04-15] MEDS: PIPERACILLIN SODIUM/TAZOBACTAM 3.375 GM in 0.9 % SODIUM CHLORIDE 100ML 100 ML IVPB SCH ×4 (05:27→22:30)
[2019-04-15 07:12] LABS: HEMATOCRIT 55.6 % (42.0-52.0); HEMOGLOBIN 17.8 gm/dl (14.0-18.0); MEAN PLATELET VOLUME 12.1 fl (7.4-10.4); PLATELET COUNT 246 K/uL (130-400); RED BLOOD COUNT 5.98 M/uL (4.40-5.70); RED CELL DISTRIBUTION WIDTH 13.7 % (11.5-14.5)
[2019-04-15 07:17] LABS: MEAN CORPUSCULAR HEMOGLOBIN 29.7 pg (27-33)
[2019-04-15 07:30] LABS: BLOOD UREA NITROGEN 25 mg/dL (6-20); CREATININE 0.9 mg/dL (0.7-1.2); EST GLOMERULAR FILTRATION RATE > 60 mL/min; GLUCOSE,RANDOM 120 mg/dL (74-109)
[2019-04-15] MEDS: ACETYLCYSTEINE 20% INH SCH ×5 (07:35→23:15)
[2019-04-15] MEDS: IPRATROPIUM/ALBUTEROL (0.5MG/3MG) NEB INH SCH ×5 (07:35→22:43)
[2019-04-15] MEDS: PREDNISONE 20 MG TAB PO SCH (08:14)
[2019-04-15] MEDS: BREO (FLUTICASONE/VILANTEROL) 100MCG/25MCG INHALER INH SCH (09:26)
[2019-04-15] MEDS: BUDESONIDE 0.5 MG/2 ML INH SCH ×2 (09:36→22:43)
[2019-04-15] MEDS: DOXYCYCLINE HYCLATE 100 MG CAPSULE PO SCH ×2 (10:10→22:31)
[2019-04-15] MEDS: LOSARTAN POTASSIUM 25 MG TABLET PO SCH ×2 (10:10→22:34)
[2019-04-15] MEDS: AMLODIPINE BESYLATE 5MG TAB PO SCH (10:10)
[2019-04-15] MEDS: GUAIFENESIN 600 MG TABCR PO SCH ×2 (10:10→22:31)
[2019-04-15] MEDS: CARVEDILOL 12.5 MG TABLET PO SCH ×2 (10:10→22:31)
[2019-04-15] MEDS: HYDROCHLOROTHIAZIDE 25 MG TABLET PO SCH (10:10)
[2019-04-15] MEDS: LORATADINE 10 MG TABLET PO SCH (10:11)
[2019-04-15] MEDS: ENOXAPARIN 40 MG/0.4 ML SYR SQ SCH (10:11)
--- NOTE | 2019-04-15 21:31 | Physician Progress Note ---
Subjective - Date Date of Physician Progress Note: 04/15/19 - Subjective Subjective Comment: 04/12/19 Pt reports some improvement in symptoms but continues to have ARMENTA, cough, sputum that he can not clear and generaized fatigue and chills. A&Ox4, denies CP 04/13/19 pt conditing improving, still has ARMENTA and wheezing but reports he is feeling better. C/O getting bored but states he feels 50-70% better. 04/14/19 pt req to go home today, cough improved, ARMENTA decreased, still has audible wheezing but reports he can now sleep in bed and that is much better 04/15/19 pt reports improved symptoms, cough infreq, ARMENTA almost resolved. Objective - Vital Signs Vital Signs: Vital Signs - Last 24 Hrs Temp Pulse Pulse Pulse Resp BP BP 04/15/19 20:00 98.1 F 108 H 20 111/82 04/15/19 18:03 105 H 18 04/15/19 16:00 98.3 F 106 H 18 137/89 04/15/19 15:17 113 H 18 04/15/19 13:00 99.1 F 99 H 20 135/92 04/15/19 09:32 106 H 20 04/15/19 09:26 106 H 20 04/15/19 09:00 20 04/15/19 07:39 94 H 20 147/99 04/15/19 05:00 97.7 F 84 20 122/79 04/14/19 23:56 98.0 F 93 H 20 120/87 04/14/19 21:46 84 20 Pulse Ox 04/15/19 20:00 92 L 04/15/19 18:03 95 04/15/19 16:00 92 L 04/15/19 15:17 96 04/15/19 13:00 94 L 04/15/19 09:32 04/15/19 09:26 96 04/15/19 09:00 04/15/19 07:39 96 04/15/19 05:00 96 04/14/19 23:56 94 L 04/14/19 21:46 94 L - General General Appearance: Alert, Oriented x3, Cooperative, No acute distress Limitations: No limitations - Head Head exam: Atraumatic, Normocephalic - Eye Eye exam: Normal appearance - ENT ENT exam: Mucous membranes moist Ear exam: Normal external inspection Mouth exam: Normal external inspection Teeth exam: Dental caries - Neck Neck exam: Normal inspection - Respiratory Respiratory exam: Decreased breath sounds, Wheezes. negative: Prolonged expiratory, Rales, Respiratory distress, Rhonchi - Cardiovascular Cardiovascular Exam: Regular rate, Normal rhythm, Normal heart sounds Peripheral Pulses: 2+: Radial (R), Radial (L), Dorsalis Pedis (R), Dorsalis Pedis (L) - GI/Abdominal GI/Abdominal exam: Soft, Normal bowel sounds - Rectal Rectal exam: Deferred - exam: Deferred - Extremities Extremities exam: Normal inspection, Normal capillary refill, Other (gloria lower legs skin is red, shiny with ankle hair loss). negative: Pedal edema - Back Back exam: Reports: Normal inspection - Neurological Neurological exam: Alert, Normal gait, Oriented X3 - Psychiatric Psychiatric exam: Normal affect, Normal mood - Skin Skin exam: Dry, Erythema Assessment and Plan - Assessment and Plan (1) RML pneumonia Current Visit: Yes Status: Acute Base Code: J18.9 - PNEUMONIA, UNSPECIFIED ORGANISM Comment: 04/15/19 -Dr Mixno consulted on pt, re-read CT and reports RML PNA -continue Zosyn 3.375gm IVP q6 and doxy 100mg BID until WBC begins to trend down then d/c with doxy 100mg BID and f/u with PCP -pulm f/u 2 weeks (2) COPD exacerbation Current Visit: No Status: Acute Base Code: J44.1 - CHRONIC OBSTRUCTIVE PULMONARY DISEASE W (ACUTE) EXACERBATION Comment: 04/15/19 -pt symptoms have almost resolved, cough infreq, lungs wheezing but crackles/rales resolved -WBC continues to increase, Dr Mixon consulted on pt, re-read CT and reports RML PNA, continue ABX, d/c with doxy after WBC begins to trend down -add flu and MRSA nasal swab -f/u with PCP 1 week f/u pulm 2 weeks 04/14/19 -pt reports close to baseline, has concerns about getting portable O2 tank for better mobility -WBC increaseing, changed rocephin to zosyn, procalcitonin decreased again -pulm consult in the am 04/13/19 -pt reports feeling 50-70% better but still tired and coughing -agrees to continue current tx and eval in the AM 04/12/19 -pt reports improving symptoms but still feeling ill -continue neb tx, steroids and abx -CXR and CT neg for acute process 04/11/19 - Failed outpt treatment, seen in ED 04/10/19 and seen in [facility] 04/11/19 for increasing SOB and cough - Given Doxycycline 100mg BID 04/10/19 - CXR 04/11/19: no acute cardiopulmonary process, COPD - CBC 19.8, trop neg - Supplemental oxygen to keep pulse ox 90-92%, sat 85% RA - Doxycycline 100mg BID, Rocephin 1gm q12 - Duoneb scheduled q4h, solumedrol 125mg IVP q12 (3) Leukocytosis Current Visit: Yes Status: Acute Base Code: D72.829 - ELEVATED WHITE BLOOD CELL COUNT, UNSPECIFIED Comment: 04/15/19 WBC 19->23.9->18.1->21.2->23-> 24 -BC prelim no growth -pt is clincially improving, contine zosyn and doxy 04/14/19 WBC 19->23.9->18.1->21.2->23 (1400) changed abx to zosyn (consulted with [facility] pharmacy) pulm consult in the am CXR and CT are inconclusive of infection 04/13/19 WBC 19->23.9->18.1 procalcitonin 0.024 -repeat in the AM and potential d/c continued improvement 04/12/19 -WBC 19->23.9 -potential increase in WBC r/t steroid use, pt impoving symptom mgt but will repeat labs AM 04/11/19 -WBC 19 (4) DVT prophylaxis Current Visit: No Status: Acute Base Code: [id number] - Comment: 04/15/19: - Moderate risk due to age, comorbidities, and hospitalization - Lovenox 40mg SQ while hospitalized (5) Full code status Current Visit: No Status: Acute Base Code: Z78.9 - OTHER SPECIFIED HEALTH STATUS Comment: 04/15/19 - Full code this admission Results - Labs Result Diagrams: 04/15/19 06:43 04/15/19 06:43 Labs Last 24 Hours: Laboratory Results - last 24 hr 04/15/19 04/15/19 06:43 06:43 WBC 24.0 H* RBC 5.98 H Hgb 17.8 Hct 55.6 H MCV 93.0 MCH 29.7 MCHC 32.0 RDW 13.7 Plt Count 246 MPV 12.1 H Neutrophils % 86.0 H Eosinophils % Not Reportable Basophils % Not Reportable Absolute Neutrophils Not Reportable Lymphocytes 12.0 L Monocytes 1.0 Metamyelocytes 1.0 Sodium 142 Potassium 4.5 Chloride 97 L Carbon Dioxide 36.0 H Anion Gap 9.0 BUN 25 H Creatinine 0.9 Estimated GFR > 60 Random Glucose 120 H Calcium 9.5 - Imaging and Cardiology CT scan - chest Status: Report reviewed DVT/PE Assessment - Risk for VTE Risk for VTE: No Risk Level: Moderate Risk Assessment Date: 04/11/19 Risk Assessment Time: 17:00 VTE Orders Placed or Will Be Placed: Yes - Active Medicaitons Current Medications: Current Medications Acetylcysteine (Mucomyst [Neb/Po]) 3 ml INH RESP.Q4H.[facility] Last Admin: 04/15/19 15:25 Dose: Not Given Documented by: Albuterol Sulfate (Albuterol Sulfate) 2.5 mg INH Q2H PRN PRN Reason: DIFFICULTY IN BREATHING Albuterol/Ipratropium (Duoneb) 3 ml INH RESP.Q4H.[facility] Last Admin: 04/15/19 18:02 Dose: 3 ml Documented by: Amlodipine Besylate (Norvasc) 2.5 mg PO DAILY [facility] Last Admin: 04/15/19 10:10 Dose: 2.5 mg Documented by: Budesonide (Pulmicort) 0.5 mg INH BID [facility] Last Admin: 04/15/19 09:36 Dose: Not Given Documented by: Carvedilol (Coreg) 12.5 mg PO BID [facility] Last Admin: 04/15/19 10:10 Dose: 12.5 mg Documented by: Doxycycline Hyclate (Vibramycin) 100 mg PO BID [facility] Last Admin: 04/15/19 10:10 Dose: 100 mg Documented by: Enoxaparin Sodium (Lovenox) 40 mg SQ DAILY [facility] Last Admin: 04/15/19 10:11 Dose: 40 mg Documented by: Guaifenesin (Mucinex) 600 mg PO BID [facility] Last Admin: 04/15/19 10:10 Dose: 600 mg Documented by: Hydrochlorothiazide (Hctz 25mg) 50 mg PO DAILY [facility] Last Admin: 04/15/19 10:10 Dose: 50 mg Documented by: Piperacillin Sod/Tazobactam (Sod 3.375 gm/ Sodium Chloride) 100 mls @ 200 mls/hr IVPB Q6H [facility] Loratadine (Claritin) 10 mg PO DAILY [facility] Last Admin: 04/15/19 10:11 Dose: 10 mg Documented by: Losartan Potassium (Cozaar) 50 mg PO BID [facility] Last Admin: 04/15/19 10:10 Dose: 50 mg Documented by: Montelukast Sodium (Singulair) 10 mg PO QHS [facility] Last Admin: 04/14/19 22:39 Dose: 10 mg Documented by: Prednisone (Prednisone 20mg) 40 mg PO DAILYWM [facility] Stop: 04/20/19 08:01 Last Admin: 04/15/19 08:14 Dose: 40 mg Documented by: AMI Plan - Labs Result Diagrams: 04/15/19 06:43 04/15/19 06:43
[2019-04-15] MEDS: MONTELUKAST SODIUM 10MG TABLET PO SCH (22:31)
[2019-04-16] MEDS: PIPERACILLIN SODIUM/TAZOBACTAM 3.375 GM in 0.9 % SODIUM CHLORIDE 100ML 100 ML IVPB SCH ×4 (04:24→22:22)
[2019-04-16] MEDS: IPRATROPIUM/ALBUTEROL (0.5MG/3MG) NEB INH SCH ×5 (07:08→22:31)
[2019-04-16] MEDS: ACETYLCYSTEINE 20% INH SCH ×5 (07:08→22:34)
[2019-04-16 07:18] LABS: BLOOD UREA NITROGEN 22 mg/dL (6-20); EST GLOMERULAR FILTRATION RATE > 60 mL/min; GLUCOSE,RANDOM 85 mg/dL (74-109)
[2019-04-16 07:20] LABS: ABSOLUTE NEUTROPHIL COUNT 11.96; HEMOGLOBIN 16.4 gm/dl (14.0-18.0); MEAN CELL VOLUME 94.4 fl (81-97); MEAN CORPUSCULAR HEMOGLOBIN 29.8 pg (27-33); MEAN CORPUSCULAR HGB CONC 31.5 g/dl (32-36); MEAN PLATELET VOLUME 11.8 fl (7.4-10.4); PLATELET COUNT 188 K/uL (130-400); RED BLOOD COUNT 5.51 M/uL (4.40-5.70); RED CELL DISTRIBUTION WIDTH 13.8 % (11.5-14.5); WHITE BLOOD COUNT W/O DIFF 15.8 K/uL (4.2-12.2)
[2019-04-16] MEDS: PREDNISONE 20 MG TAB PO SCH (07:58)
[2019-04-16 08:10] LABS: PLATELET ESTIMATE NORMAL (NORMAL); TOXIC GRANULATION 1+
--- NOTE | 2019-04-16 08:58 | Medical Records Consult ---
DATE OF CONSULTATION: 04/15/2019 REASON FOR THE CONSULTATION: Dyspnea. This is a middle aged male active smoker mainly for marijuana who has a known history of COPD, chronic use of oxygen and home inhalers who presented with worsening dyspnea. He was directly admitted from the office for hypoxia as he was found to have an oxygen saturation of 87% and heart rate of 125. He was diagnosed with acute exacerbation of COPD. He has been admitted for the last day and he seems to be improving. He was started on bronchodilator DuoNeb and Pulmicort in addition to Rocephin and Doxycycline and Prednisone orally at 40 mg daily. The patient's white cell count continued to rise up in spite of coming down on the steroid. His CAT scan showed right middle lobe infiltrate and right lower lobe infiltrate. The patient's sputum and blood culture has been done. He had a recent flu test and it was negative according to the nurse. PAST MEDICAL HISTORY: 1. Includes active marijuana use. 2. COPD. 3. Chronic respiratory allergies for which the patient has been on Singulair, but he quit from before. 4. Socially as I mentioned before he denies any drug abuse. FAMILY HISTORY: Noncontributory. He denies any asthma in his family. REVIEW OF SYSTEMS: As mentioned in the history of present illness. He denies any major headache or chest pain. He denies any nausea, vomiting or abdominal pain. He denies any neck pain or any lymph node enlargement in his neck or any masses. He denies any lower extremity swelling. He denies any joint swelling or inflammation. He denies any skin rash. All other systems have been reviewed and are negative. PHYSICAL EXAMINATION: Alert and oriented. He does not look in acute distress. He is afebrile. Pulse rate is about 90 now and his blood pressure is running well. NECK: Supple. No JVD. HEART: Regular rate and rhythm. No runs or gallops. HEENT: Pupils are equal, round and reactive to light and accommodation. ABDOMEN: Soft. Active bowel sounds. CHEST: Showed decreased breath sounds bilaterally with hyperinflation and expiratory wheeze. EXTREMITIES: No edema. SKIN: No rash. LABS: His white cell count was 21.2, hemoglobin was 17.4 and his creatinine was 0.8. His carbon dioxide was 35. CAT scan was reviewed personally and showed right middle lobe and right lower lobe infiltrate. The top of the right middle lobe infiltrate close to the heart medially showed some nodularity. ASSESSMENT AND PLAN: THIS MIDDLE AGED MALE WITH HISTORY OF MARIJUANA USE PRESENTED WITH ACUTE EXACERBATION OF COPD. HE HAS BEEN RECENTLY TREATED FOR A SIMILAR EPISODE AN OUTPATIENT. HIS FINDING IS CONSISTENT WITH ACUTE EXACERBATION OF COPD. HIS CAT SCAN ALSO SHOWED EVIDENCE OF RIGHT MIDDLE LOBE AND RIGHT LOWER LOBE PNEUMONIA. I AGREE WITH THE CURRENT TREATMENT INCLUDING ANTIBIOTIC ROCEPHIN AND DOXYCYCLINE. ALSO MRSA TESTING OF THE NOSE. ADD ZYVOX IF IT IS POSITIVE TO COVER FOR MRSA PNEUMONIA. THE PATIENT HAS TO STAY AT THE HOSPITAL FOR ANOTHER DAY OR TWO UNTIL HIS WHITE CELL COUNT STARTS TO COME DOWN AND IMPROVE. I AGREE WITH THE CULTURE INCLUDING THE SPUTUM AND BLOOD AND THEY NEED TO BE FOLLOWED UP. THE PATIENT NEEDS FOLLOW-UP AN OUTPATIENT WITH A PFT AND CAT SCAN IN TWO MONTHS FROM NOW. THE PATIENT WAS CLINICALLY SUSPICIOUS OF SLEEP APNEA AND HE NEEDS TO BE TESTED AN OUTPATIENT. REGARDING OXYGEN, THE PATIENT HAD OXYGEN AT HOME. HE USED TO TAKE IT AT NIGHT, BUT HE WILL STOP USING 24/7 UNTIL HE IS RE-EVALUATED IN THE OFFICE. JOB NUMBER: [id number] [facility]
[2019-04-16] MEDS: BREO (FLUTICASONE/VILANTEROL) 100MCG/25MCG INHALER INH SCH (10:58)
[2019-04-16] MEDS: BUDESONIDE 0.5 MG/2 ML INH SCH ×2 (10:58→22:31)
[2019-04-16] MEDS: AMLODIPINE BESYLATE 5MG TAB PO SCH (11:17)
[2019-04-16] MEDS: LOSARTAN POTASSIUM 25 MG TABLET PO SCH ×2 (11:18→22:21)
[2019-04-16] MEDS: DOXYCYCLINE HYCLATE 100 MG CAPSULE PO SCH ×2 (11:18→22:21)
[2019-04-16] MEDS: CARVEDILOL 12.5 MG TABLET PO SCH ×2 (11:18→22:22)
[2019-04-16] MEDS: ENOXAPARIN 40 MG/0.4 ML SYR SQ SCH (11:18)
[2019-04-16] MEDS: LORATADINE 10 MG TABLET PO SCH (11:18)
[2019-04-16] MEDS: HYDROCHLOROTHIAZIDE 25 MG TABLET PO SCH (11:18)
[2019-04-16] MEDS: GUAIFENESIN 600 MG TABCR PO SCH ×2 (11:18→22:20)
[2019-04-16] MEDS: MONTELUKAST SODIUM 10MG TABLET PO SCH (22:22)
[2019-04-17] MEDS: PIPERACILLIN SODIUM/TAZOBACTAM 3.375 GM in 0.9 % SODIUM CHLORIDE 100ML 100 ML IVPB SCH ×2 (04:20→11:15)
[2019-04-17] MEDS: ACETYLCYSTEINE 20% INH SCH (06:36)
[2019-04-17] MEDS: PREDNISONE 20 MG TAB PO SCH (08:28)
[2019-04-17] MEDS: BREO (FLUTICASONE/VILANTEROL) 100MCG/25MCG INHALER INH SCH (10:05)
[2019-04-17] MEDS: IPRATROPIUM/ALBUTEROL (0.5MG/3MG) NEB INH SCH (10:05)
[2019-04-17] MEDS: BUDESONIDE 0.5 MG/2 ML INH SCH (10:05)
[2019-04-17] MEDS ORDERED: LINEZOLID 600 MG TABLET PO SCH (10:45)
[2019-04-17] MEDS: LORATADINE 10 MG TABLET PO SCH (11:06)
[2019-04-17] MEDS: CARVEDILOL 12.5 MG TABLET PO SCH (11:07)
[2019-04-17] MEDS: LOSARTAN POTASSIUM 25 MG TABLET PO SCH (11:07)
[2019-04-17] MEDS: HYDROCHLOROTHIAZIDE 25 MG TABLET PO SCH (11:08)
[2019-04-17] MEDS: ENOXAPARIN 40 MG/0.4 ML SYR SQ SCH (11:08)
[2019-04-17] MEDS: GUAIFENESIN 600 MG TABCR PO SCH (11:09)
[2019-04-17] MEDS: AMLODIPINE BESYLATE 5MG TAB PO SCH (11:09)
[2019-04-17] MEDS: DOXYCYCLINE HYCLATE 100 MG CAPSULE PO SCH (11:11)
--- NOTE | 2019-04-17 12:23 | Discharge Note ---
VTE H&P Assessment - Risk for VTE Risk for VTE: Yes Risk Level: Moderate Risk Assessment Date: 04/11/19 Risk Assessment Time: 17:00 VTE Orders Placed or Will Be Placed: Yes Discharge Medications - Discharge Medications Prescriptions: Mupirocin Calcium [Bactroban Nasal] 1 gm NS BID #30 oint...g. Doxycycline Hyclate 100 mg PO BID #20 cap Linezolid 600 mg PO Q12H #20 tablet Prednisone [Prednisone 10Mg] 10 mg PO ASDIR #30 tab Home Medications: Ambulatory Orders Prednisone [Prednisone 10Mg] 10 mg PO ASDIR #30 tab 04/10/19 [Last Taken Unknown] Amlodipine Besylate [Norvasc] 2.5 mg PO DAILY tab 04/17/19 [Last Taken Unknown] Carvedilol [Coreg] 12.5 mg PO BID tablet 04/17/19 [Last Taken Unknown] Doxycycline Hyclate 100 mg PO BID #20 cap 04/17/19 [Last Taken Unknown] Doxycycline Hyclate [Vibramycin] 100 mg PO BID capsule 04/17/19 [Last Taken Unknown] Guaifenesin [Mucinex] 600 mg PO BID tabcr 04/17/19 [Last Taken Unknown] Hydrochlorothiazide [Hctz] 50 mg PO DAILY tablet 04/17/19 [Last Taken Unknown] Ipratropium/Albuterol [Duoneb] 3 ml INH RESP.[id number].WA ampul.neb 04/17/19 [Last Taken Unknown] Linezolid 600 mg PO Q12H #20 tablet 04/17/19 [Last Taken Unknown] Loratadine [Claritin] 10 mg PO DAILY tablet 04/17/19 [Last Taken Unknown] Losartan Potassium [Cozaar] 50 mg PO BID tablet 04/17/19 [Last Taken Unknown] Montelukast Sodium [Singulair] 10 mg PO QHS tab 04/17/19 [Last Taken Unknown] Mupirocin Calcium [Bactroban Nasal] 1 gm NS BID #30 oint...g. 04/17/19 [Last Taken Unknown] Prednisone [Prednisone 10Mg] 10 mg PO ASDIR #30 tab 04/17/19 [Last Taken Unknown] Discharge Note - Date Date of Discharge Note: 04/17/19 Disposition: Home, Self-Care Condition: (1) Good Additional Instructions: Appointment with Pilar Singh at [facility] on , 04/18 at 2:20. follow up with pulmonary in 3-4 weeks zyvox 600 mg twice aday for 10 days for pneumonia and nasal swab positive for MRSA in the now bactroban ointment in nose twice a day for 5 days doxy 100 mg twice a day for 10 days oxygen 2 liters per minute till recheck in the office to go back to night time oxygen. please order a sleep study to be done in [facility] through Dr Paco Cohen's office Referrals: Pilar Singh, N.Torri. [Primary Care Provider] - Activity at Discharge: Increase Activity as Tolerated Diet at Discharge: Low Salt Diet
--- NOTE | 2019-04-19 10:40 | Discharge Summary ---
DATE: 04/17/2019 at 12:34 p.m. DISCHARGE DIAGNOSES: 1. Pneumonia, right middle lobe and right lower lobe. 2. Chronic obstructive pulmonary disease, severe with home oxygen 2L/min nasal cannula 24/. Will be reevaluated by Pulmonary in 3-4 weeks to see if this is necessary long-term. 3. Methicillin-resistant Staphylococcus aureus in the nose. Possible colonization versus staph pneumonia. Starting Zyvox 600 mg b.i.d. for 10 days. 4. Possible sleep apnea. Ordered a sleep study prior to discharge. 5. Hypertension. 6. Allergies. ATTENDING PHYSICIAN: Melquiades Gunter DO REASON FOR HOSPITALIZATION: This 53-year-old male presented to the emergency department short of breath. Failed outpatient therapy. Seen by Leonora Laboy and admitted to the hospital for further treatment. The patient stated that he was short of breath, progressively worse, coughing 4-5 days prior to coming to the hospital. He was tried on outpatient therapy through the emergency department approximately 1 day before admission. He got worse. Seen by Leonora Laboy who admitted him to the hospital for further care. He stated he was coughing up yellow sputum. No chest pain. He has wheezing with breath sounds. He smokes marijuana, which may be aggravating his lungs. SIGNIFICANT FINDINGS: Chest x-ray. Initial chest x-ray was negative for pneumonia. CT of the chest revealed bibasilar atelectasis, otherwise unremarkable. However, it was reread by the automation technician who felt there was right middle lobe and right lower lobe pneumonia. His white count was 23,900. Gradually came down to 15,800. His hemoglobin on discharge was 16.4. His last set of basic metabolic panel, potassium 4.6, sodium 142, BUN 22, creatinine 1, bicarb 35. The nasal swab in the nose is positive. Flu swabs were negative. EKG showed sinus tachycardia. No acute changes. THERAPY PROVIDED: The patient was treated with IV Rocephin and doxycycline. Zyvox was started because he had positive MRSA testing of his nose, 600 mg b.i.d. He was also given IV Solu-Medrol, switched over to oral prednisone. Pulmonary recommends a repeat CT scan or a pulmonary PET scan in 2 months. They also recommend a sleep study, which we will order through [facility], and to use oxygen 24/. Pulmonary consult was Dr. Fernandez. HOSPITAL COURSE: The patient gradually got better. It was a pretty long, drawn- out course. He was in the hospital from 04/11/2019 until today, which is 04/17/2019. CONDITION ON DISCHARGE: Much improved. Breathing much better. The wheezing has stopped. DISCHARGE INSTRUCTIONS: 1. Follow up with Pilar Singh tomorrow. 2. Follow up with Pulmonary in 3-4 weeks. 3. Zyvox 600 mg b.i.d. for 10 days for pneumonia and also for the positive nasal washings in his nose. 4. Bactroban ointment to the nose b.i.d. for 5 days. 5. Doxycycline 100 mg b.i.d. for 10 days. 6. Prednisone taper from 40 mg a day for 3 days, then 30 mg a day for 3 days, 20 mg a day for 3 days, 10 mg a day for 3 days. It is recommended that he get a repeat CT scan or a PET scan in 2 months. Also recommend to get a sleep study at [facility]. Low-salt diet. Try to lose weight and avoid smoking marijuana. It is better, if he is going to use marijuana, to use it as an edible source. He is to continue his home medications, which are Incruse Ellipta 1 puff a day, Singulair 10 mg daily, losartan 50 mg b.i.d., DuoNeb q.i.d., hydrochlorothiazide 50 mg a day, Mucinex 600 mg b.i.d., Flonase nasal spray daily, doxycycline 100 mg b.i.d. for 10 days, Zyrtec 10 mg a day, Coreg 6.25 b.i.d., amlodipine 2.5 mg daily, Ventolin 2 puffs q.4 h. p.r.n. MTDD
== END 2019-04-17 13:25 | disposition home or self-care (01) | DRG 195 ==
LOC: MEDSURG 16:35 → OBSVTOIN 16:35 → INTOOBSV 16:35
PROVIDERS: ADMIT Internal Medicine; ATTEND Internal Medicine
DX: J18.9 Pneumonia, unspecified organism (principal); D72.829 Elevated white blood cell count, unspecified; I10 Essential (primary) hypertension; R06.00 Dyspnea, unspecified; R05 Cough; A49.02 Methicillin resistant Staphylococcus aureus infection, unspecified site; Z22.322 Carrier or suspected carrier of Methicillin resistant Staphylococcus aureus
CPT/HCPCS: 71046; 71250; 80048; 80053; 81003; 84145; 84484; 85027; 87040; 87070; 90686; 93005; 94618; 94667; 94761; 99223; 99233; 99239; J0696; J1650; J2543; J2930; J7512